=== PATIENT | female | born 1960 | race Caucasian/White ===

== ENCOUNTER 2020-03-03 17:42 | Inpatient (IN) | payer OTHER ==
[~2020-03-03] VITALS: Ht 160 cm; Wt 92.2 kg
[2020-03-03] MEDS ORDERED: NS IV 1000 ML 1,000 ML IV SCH (18:03)
[2020-03-03 18:15] LABS: BASOPHILS % (AUTO) 1 % (0-10); EOSINOPHILS # (AUTO) 0.1 10^3/uL (0.0-0.3); EOSINOPHILS % (AUTO) 1 % (0-10); HEMATOCRIT 44 % (35-52); HEMOGLOBIN 13.9 g/dL (11.5-16.0); LYMPHOCYTES # (AUTO) 2.8 10^3/uL (1.0-4.0); LYMPHOCYTES % (AUTO) 40 % (12-44); MEAN CORPUSCULAR HEMOGLOBIN 29 pg (25-34); MEAN CORPUSCULAR HGB CONC 31 g/dL (32-36); MEAN CORPUSCULAR VOLUME 92 fL (80-99); MEAN PLATELET VOLUME 9.8 fL (9.0-12.2); MONOCYTES # (AUTO) 0.5 10^3/uL (0.0-1.0); MONOCYTES % (AUTO) 8 % (0-12); NEUTROPHILS # (AUTO) 3.5 10^3/uL (1.8-7.8); NEUTROPHILS % (AUTO) 51 % (42-75); PLATELET COUNT 249 10^3/uL (130-400); WHITE BLOOD COUNT 6.9 10^3/uL (4.3-11.0)
[2020-03-03] MEDS ORDERED: ONDANSETRON 4 MG/2 ML (SDV) Z0FRAN IVP ONE (18:15)
--- NOTE | 2020-03-03 18:17 | ED Abdominal Pain ---
General Chief Complaint: Abdominal/GI Problems Stated Complaint: DEHYDRATION;ABNORMAL LAB RESULTS;ABD PAIN Source of Information: Patient History of Present Illness Date Seen by Provider: Mar 03, 2020 Time Seen by Provider: 17:56 Initial Comments PT ARRIVES VIA POV --SENT HERE FROM [facility] C/O GENERALIZED ABDOMINAL PAIN FOR AT LEAST 2 WEEKS C/O NAUSEA, NO VOMITING. HAD NORMAL BM THIS AFTERNOON NO FEVER/SWEATS/CHILLS NO URINARY SYMPTOMS AND VOIDING A NORMAL AMOUNT NOTHING WORSENS OR IMPROVES PAIN TOOK TYLENOL AT 1500 WITHOUT RELIEF HAS HAS PRIOR OPEN CHOLECYSTECTOMY AND HIATAL HERNIA REPAIR IN THE PAST NO CHEST PAIN NO SHORTNESS OF BREATH NO PALPITATIONS NO DIZZINESS OR SYNCOPE NOTICED SWELLING IN HER LEGS/ANKLES TODAY STATES SHE HAS GAINED 30# IN THE LAST 3 MONTHS SUPPOSED TO BY ON SYNTHROID, BUT HAS NOT TAKEN ANY FOR THE LAST 4 WEEKS, SIMPLY DID NOT REFILL/SAW TAILER MEDICATION FROM THE PHARMACY. NO RECENT ILLNESS NO KNOWN SICK CONTACTS OR EXPOSURE TO COVID-19 WENT TO [facility] ON SATURDAY FOR THIS PROBLEM. HAD LAB DONE. GIVEN RX FOR BENTYL. HAS NOT TAKEN ANYTHING TODAY WENT BACK TO [facility] THIS EVENING, AND GOT LAB RESULTS BACK--PT STATES "THEY SAID I WAS SUPER DEHYDRATED AND MY LIVER ENZYMES WERE REALLY BAD--WAY TOO HIGH, AND MY HEART RATE WAS 122" SO SENT HERE. NO COPIES OF LAB SENT WITH PT OR FAXED HERE. STATES SHE ATE AT 1300 TODAY--KEVIN PCP: [facility] Allergies and Home Medications Allergies Coded Allergies: morphine (Unverified Allergy, Mild, 11/01/05) No Known Drug Allergies (Unverified , 07/20/05) Patient Home Medication List Home Medication List Reviewed: Yes Review of Systems Review of Systems Constitutional: no symptoms reported Respiratory: No Symptoms Reported Cardiovascular: No Symptoms Reported Gastrointestinal: See HPI, Abdominal Pain; Denies Constipated, Denies Diarrhea; Nausea; Denies Vomiting Genitourinary: No Symptoms Reported Musculoskeletal: no symptoms reported Skin: no symptoms reported Psychiatric/Neurological: No Symptoms Reported Endocrine: No Symptoms Reported Hematologic/Lymphatic: No Symptoms Reported Past Jefgryc-Usxzti-Fppbxv Hx Past Med/Social Hx: Reviewed and Corrections made Patient Social History Alcohol Use: Occasionally Uses Recreational Drug Use: Yes (THC IN PAST) Drug of Choice: THC IN PAST Smoking Status: Current Everyday Smoker Recent Foreign Travel: No Contact w/Someone Who Travel: No Past Medical History Surgeries: Yes (OPEN CHOLECYSTECTOMY; HIATAL HERNIA REPAIR) Abdominal, Gallbladder Respiratory: No Cardiac: Yes (BRADYCARDIA) 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 oz. kg; BMI Method: General Appearance: WD/WN, no apparent distress, obese HEENT: normal ENT inspection Neck: normal inspection Respiratory: normal breath sounds, no respiratory distress, no accessory muscle use Cardiovascular: tachycardia, irregularly irregular Gastrointestinal: abnormal bowel sounds (RARE BOWEL SOUNDS), distended; No guarding, No rebound; tenderness (DIFFUSE TENDERNESS. ), other (ABDOMEN IS OBESE AND UNABLE TO DETERMINE IF ORGANOMEGALY IS PRESENT. UNABLE TO PALPATE ANY DISCRETE MASS OR HERNIA. ) Extremities: normal capillary refill, pedal edema (1+ BILATERALLY) Back: no CVA tenderness Neurologic/Psychiatric: research geneticist II-XII nml as tested, no motor/sensory deficits, alert, normal mood/affect, oriented x 3 Skin: normal color, warm/dry Progress/Results/Core Measures Results/Orders Lab Results Laboratory Tests Test 03/03/20 18:00 03/03/20 20:05 Range/Units White Blood Count 6.9 4.3-11.0 10^3/uL Red Blood Count 4.82 3.80-5.11 10^6/uL Hemoglobin 13.9 11.5-16.0 g/dL Hematocrit 44 35-52 % Mean Corpuscular Volume 92 80-99 fL Mean Corpuscular Hemoglobin 29 25-34 pg Mean Corpuscular Hemoglobin Concent 31 L 32-36 g/dL Red Cell Distribution Width 14.9 H 10.0-14.5 % Platelet Count 249 130-400 10^3/uL Mean Platelet Volume 9.8 9.0-12.2 fL Immature Granulocyte % (Auto) 0 % Neutrophils (%) (Auto) 51 42-75 % Lymphocytes (%) (Auto) 40 12-44 % Monocytes (%) (Auto) 8 0-12 % Eosinophils (%) (Auto) 1 0-10 % Basophils (%) (Auto) 1 0-10 % Neutrophils # (Auto) 3.5 1.8-7.8 10^3/uL Lymphocytes # (Auto) 2.8 1.0-4.0 10^3/uL Monocytes # (Auto) 0.5 0.0-1.0 10^3/uL Eosinophils # (Auto) 0.1 0.0-0.3 10^3/uL Basophils # (Auto) 0.0 0.0-0.1 10^3/uL Immature Granulocyte # (Auto) 0.0 0.0-0.1 10^3/uL Prothrombin Time 15.9 H 12.2-14.7 SEC INR Comment 1.2 0.8-1.4 Activated Partial Thromboplast Time 28 24-35 SEC D-Dimer 2.11 H 0.00-0.49 UG/ML Sodium Level 140 135-145 MMOL/L Potassium Level 4.3 3.6-5.0 MMOL/L Chloride Level 111 H 98-107 MMOL/L Carbon Dioxide Level 17 L 21-32 MMOL/L Anion Gap 12 5-14 MMOL/L Blood Urea Nitrogen 26 H 7-18 MG/DL Creatinine 0.95 0.60-1.30 MG/DL Estimat Glomerular Filtration Rate 60 BUN/Creatinine Ratio 27 Glucose Level 126 H 70-105 MG/DL Calcium Level 8.5 8.5-10.1 MG/DL Corrected Calcium 8.7 8.5-10.1 MG/DL Magnesium Level 2.2 1.6-2.4 MG/DL Total Bilirubin 1.1 H 0.1-1.0 MG/DL Aspartate Amino Transf (AST/SGOT) 36 H 5-34 U/L Alanine Aminotransferase (ALT/SGPT) 58 H 0-55 U/L Alkaline Phosphatase 84 40-136 U/L Total Creatine Kinase 63 29-168 U/L Creatine Kinase MB 1.5 <6.6 NG/ML Myoglobin 44.0 10.0-92.0 NG/ML Troponin I < 0.028 <0.028 NG/ML B-Type Natriuretic Peptide 1358.8 H <100.0 PG/ML Total Protein 6.4 6.4-8.2 GM/DL Albumin 3.8 3.2-4.5 GM/DL Amylase Level 12 L 25-125 U/L Lipase 14 8-78 U/L TSH [place] Testing 2.16 0.35-4.94 UIU/ML Urine Color YELLOW Urine Clarity CLEAR Urine pH 5.0 5-9 Urine Specific [place] 1.010 L 1.016-1.022 Urine Protein 1+ H NEGATIVE Urine Glucose (UA) NEGATIVE NEGATIVE Urine Ketones NEGATIVE NEGATIVE Urine Nitrite NEGATIVE NEGATIVE Urine Bilirubin NEGATIVE NEGATIVE Urine Urobilinogen 1.0 < = 1.0 MG/DL Urine Leukocyte Esterase NEGATIVE NEGATIVE Urine RBC (Auto) 2+ H NEGATIVE Urine RBC NONE /HPF Urine WBC 0-2 /HPF Urine Squamous Epithelial Cells 2-5 /HPF Urine Crystals NONE /LPF Urine Bacteria TRACE /HPF Urine Casts NONE /LPF Urine Mucus NEGATIVE /LPF Urine Culture Indicated NO My Orders Orders - HUGO NEGRON DO Ed Iv/Invasive Line Start (03/03/20 18:03) Ekg Tracing (03/03/20 18:03) O2 (03/03/20 18:03) Monitor-Rhythm Ecg Trace Only (03/03/20 18:03) Amylase (03/03/20 18:03) BNP (03/03/20 18:03) Cbc With Automated Diff (03/03/20 18:03) Comprehensive Metabolic Panel (03/03/20 18:03) Creatine Kinase (03/03/20 18:03) Creatine Kinase Mb (03/03/20 18:03) Fibrin Degradation Products (03/03/20 18:03) Lipase (03/03/20 18:03) Magnesium (03/03/20 18:03) Protime With Inr (03/03/20 18:03) Partial Thromboplastin Time (03/03/20 18:03) Thyroid Analyzer (03/03/20 18:03) Ua Culture If Indicated (03/03/20 18:03) Myoglobin Serum (03/03/20 18:03) Troponin I (03/03/20 18:03) Ed Iv/Invasive Line Start (03/03/20 18:03) Ns Iv 1000 Ml (Sodium Chloride 0.9%) (03/03/20 18:03) Ondansetron Injection (Zofran Injectio (03/03/20 18:15) Ekg Tracing (03/03/20 18:07) Ct [place] Chest/Noang Abd-Pelv W (03/03/20 18:47) Iohexol Injection (Omnipaque 350 Mg/Ml 1 (03/03/20 19:15) Received Contrast (Hold Metformin- Contr (03/03/20 19:15) Ns (Ivpb) (Sodium Chloride 0.9% Ivpb Bag (03/03/20 19:15) Acute Abd Series (03/03/20 18:47) Furosemide Injection (Lasix Injection) (03/03/20 21:00) Diltiazem Injection (Cardizem Injection) (03/03/20 21:00) Ekg Tracing (03/03/20 21:08) Medications Given in ED Current Medications Medications Dose Ordered Sig/Sigrid Route Start Time Stop Time Status Last Admin Dose Admin Diltiazem HCl 10 mg ONCE ONCE IVP 03/03/20 21:00 03/03/20 21:01 DC 03/03/20 20:59 10 MG Furosemide 20 mg ONCE ONCE IVP 03/03/20 21:00 03/03/20 21:01 DC 03/03/20 21:00 20 MG Iohexol 100 ml ONCE ONCE IV 03/03/20 19:15 03/03/20 19:26 DC 03/03/20 19:32 100 ML Ondansetron HCl 4 mg ONCE ONCE IVP 03/03/20 18:15 03/03/20 18:21 DC 03/03/20 18:15 4 MG Sodium Chloride 100 ml ONCE ONCE IV 03/03/20 19:15 03/03/20 19:26 DC 03/03/20 19:32 80 ML Vital Signs/I&O 03/03/20 03/03/20 17:57 21:18 Temp 36.0 36.0 Pulse 120 Resp 24 20 B/P (MAP) 171/118 (135) 160/114 (135) Pulse Ox 97 95 O2 Delivery Room Air Room Air 03/04/20 00:00 Intake Total 1000 ml Balance 1000 ml Progress Progress Note : Progress Note INITIAL HEART RATE WAS 180 AND VERY IRREGULAR--NARROW SUPRAVENTRICULAR COMPLEXES HEART RATE DOWN TO 120'S ONCE PT WAS SETTLED ONTO ER CART, AND MORE REGULAR--MONITOR SHOWS PVC'S AND PAC'S, WITH SINUS TACH. PT SLIGHTLY DYSPNEIC ON ARRIVAL WELL. THIS IMPROVED WITH REST Initial ECG Impression Date: Mar 03, 2020 Initial ECG Impression Time: 18:03 Initial ECG Rate: 123 Initial ECG Rhythm: S.Tach Initial ECG Impression: Nonspecific Changes Initial ECG Comparisson: No Previous ECG Available EKG : EKG Time: 18:04 Rate: 123 Rhythm: S.Tach (WITH PVC'S) ECG Impression: Nonspecific Changes Comment EKG #3 AT 2116--RATE 121. SINUS TACH, PVC, NON-SPECIFIC CHANGES Diagnostic Imaging Comments ABDOMEN XRAYS--PER RADIOLOGIST REPORT AT 1938 FINDINGS: Heart size is enlarged and mediastinum is prominent. This appears progressed from prior. Vasculature overall within normal limits. No definitive infiltrate. There are a few gas-filled loops of small bowel centrally. There is gas and stool through the colon. No significant differential air-fluid levels or findings to suggest high degree bowel obstruction. Small calcification right hemipelvis favors probable phlebolith. IMPRESSION: 1. Cardiac enlargement, progressed from prior study but without evidence for overt failure. 2. A few gas-filled loops of small bowel are present favoring probable ileus. No findings to suggest high degree bowel obstruction at this time. CT CHEST ANGIOGRAM/ ABDOMEN-PELVIS--PER RADIOLOGIST REPORT AT 2035 CTA CHEST: 1. No CT evidence for pulmonary embolism. 2. Cardiac enlargement with presence of small pleural effusion and component of interstitial edema does favor fluid overload or failure. CT ABDOMEN and PELVIS: 1. Right mid lateral abdominal wall hernia. This appears containing portions of the colon. While high degree obstruction not visualized, there does appear to be slight transition, thickening and some inflammatory changes in this area. This likely results in at least partial obstruction, perhaps intermittently. Reviewed: Reviewed by Me Departure Communication (Admissions) 2039--SPOKE WITH DR. GONZALEZ, HOSPITALIST CLEANER AND PREPARER FOR [facility]. ACCEPTS PT FOR ADM IT 2045--SPOKE WITH DR. DAO, TOOL SPECIALIST, ADVISES CLAUDIA, WILL GET ECHOCARDIOGRAM IN AM 2049--SPOKE WITH DR. MAYBERRY, SURGEON, ADVISES THAT PT MAY HAVE CLEAR LIQUIDS Impression Primary Impression: ABDOMINAL WALL HERNIA WITH PARTIAL BOWEL OBSTRUCTION Additional Impressions: CHF (congestive heart failure) HTN (hypertension) Supraventricular tachycardia Disposition: 09 ADMITTED INPATIENT Condition: Improved Admissions Decision to Admit Reason: Admit from ER (General) Decision to Admit/Date: Mar 03, 2020 Time/Decision to Admit Time: 20:40 Departure-Patient Inst. Referrals: [facility] (PCP/Family) Primary Care Physician HUGO NEGRON DO Mar 03, 2020 18:17
[2020-03-03 18:31] LABS: FIBRIN DEGRADATION PRODUCTS 2.11 UG/ML (0.00-0.49); INR 1.2 (0.8-1.4); PROTHROMBIN TIME PATIENT 15.9 SEC (12.2-14.7)
[2020-03-03 18:34] LABS: ALBUMIN 3.8 GM/DL (3.2-4.5); CHLORIDE 111 MMOL/L (98-107); POTASSIUM 4.3 MMOL/L (3.6-5.0); SODIUM 140 MMOL/L (135-145)
[2020-03-03 18:35] LABS: AMYLASE 12 U/L (25-125); CALCIUM 8.5 MG/DL (8.5-10.1)
[2020-03-03 18:36] LABS: GLUCOSE 126 MG/DL (70-105)
[2020-03-03 18:37] LABS: TOTAL PROTEIN 6.4 GM/DL (6.4-8.2)
[2020-03-03 18:38] LABS: BILIRUBIN,TOTAL 1.1 MG/DL (0.1-1.0); CARBON DIOXIDE 17 MMOL/L (21-32)
[2020-03-03 18:40] LABS: ALKALINE PHOSPHATASE 84 U/L (40-136); CREATININE SERUM 0.95 MG/DL (0.60-1.30); GFR ESTIMATED 60
[2020-03-03 18:41] LABS: BUN/CREATININE RATIO 27
[2020-03-03 18:43] LABS: ALANINE AMINOTRANSFERASE 58 U/L (0-55); MAGNESIUM 2.2 MG/DL (1.6-2.4)
[2020-03-03 18:44] LABS: CREATINE KINASE 63 U/L (29-168); LIPASE 14 U/L (8-78)
[2020-03-03 18:51] LABS: CREATINE KINASE MB 1.5 NG/ML (<6.6)
[2020-03-03 19:04] LABS: TSH (THYROID ANALYZER) 2.16 UIU/ML (0.35-4.94)
[2020-03-03] MEDS ORDERED: NS 100 ML (IVPB) BAG IV ONE (19:15)
[2020-03-03] MEDS ORDERED: HOLD METFORMIN - RECEIVED CONTRAST 20 ML VIAL IV SCH (19:15)
[2020-03-03] MEDS ORDERED: IOHEXOL 350 MG/ML 100 ML (OMNIPAQUE 350) VIAL IV ONE (19:15)
--- NOTE | 2020-03-03 19:33 | Diagnostic Imaging Report ---
INDICATION: Cramping and bleeding x2 weeks, increasing in severity TECHNIQUE: Single view chest with supine and upright radiographs of the abdomen. CORRELATION STUDY: Chest 06/09/2006 FINDINGS: Heart size is enlarged and mediastinum is prominent. This appears progressed from prior. Vasculature overall within normal limits. No definitive infiltrate. There are a few gas-filled loops of small bowel centrally. There is gas and stool through the colon. No significant differential air-fluid levels or findings to suggest high degree bowel obstruction. Small calcification right hemipelvis favors probable phlebolith. IMPRESSION: 1. Cardiac enlargement, progressed from prior study but without evidence for overt failure. 2. A few gas-filled loops of small bowel are present favoring probable ileus. No findings to suggest high degree bowel obstruction at this time. Dictated by: Dictated on workstation # [id number]
[2020-03-03 20:14] LABS: BILIRUBIN,URINE NEGATIVE (NEGATIVE); CLARITY,URINE CLEAR; COLOR,URINE YELLOW; GLUCOSE, URINE (UA) NEGATIVE (NEGATIVE); KETONES,URINE NEGATIVE (NEGATIVE); LEUKOCYTE ESTERASE ,URINE NEGATIVE (NEGATIVE); NITRITE,URINE NEGATIVE (NEGATIVE); PROTEIN,URINE 1+ (NEGATIVE)
--- NOTE | 2020-03-03 20:16 | Diagnostic Imaging Report ---
CTA chest, abdomen and pelvis Thin axial sections through the chest, abdomen and pelvis are obtained following intravenous contrast bolus. Multiplanar MIP images were reconstructed and reviewed. All CT scans use one or more of the following dose optimizing techniques: automated exposure control, MA and/or KvP adjustment based on patient size and exam type or iterative reconstruction. INDICATION: TACHYARRHYTHMIA, ABDOMINAL PAIN, N/V, DYSPNEA. Bloating and cramping x2 weeks increasing in severity. CORRELATION STUDY: None FINDINGS: CTA CHEST: Heart size is enlarged. There is disc no disproportionate right heart strain. No pericardial effusion. Thoracic aortic contour generally unremarkable. The pulmonary arteries demonstrate no suggested filling defect to reflect pulmonary embolism. Small right and slightly smaller left pleural effusion. No consolidating infiltrate. Mildly prominent peripheral interstitial markings does suggest at least mild interstitial edema. CT ABDOMEN and PELVIS: Slight heterogeneity about the liver without definitive focal lesion. Gallbladder absent. No bile duct dilatation. Spleen, atrophic pancreas and adrenal glands demonstrate no acute abnormality. Symmetric perinephric stranding. No hydronephrosis or obstruction. There is atherosclerotic change about the abdominal aorta which is nonaneurysmal. Major branches are patent at their origins. There is presence of small volume pelvic fluid. Stomach is relatively collapsed. Resultant gastric wall thickening. No significant small bowel distention or findings to suggest obstruction. A few gas-filled loops of bowel may reflect mild ileus. Along the right mid lateral abdominal wall is a focal hernia defect at slightly greater than 2 cm in size. There is herniation of portion of the proximal transverse colon. Colon appears to be slightly folded on itself and perhaps slightly thickened. Small amount of inflammation around this area is noted. However, high degree obstruction does not appear to be suggested. A few scattered shotty subcentimeter central retroperitoneal and mesenteric lymph nodes. Urinary bladder relatively decompressed. Uterus and adnexa unremarkable. IMPRESSION: CTA CHEST: 1. No CT evidence for pulmonary embolism. 2. Cardiac enlargement with presence of small pleural effusion and component of interstitial edema does favor fluid overload or failure. CT ABDOMEN and PELVIS: 1. Right mid lateral abdominal wall hernia. This appears containing portions of the colon. While high degree obstruction not visualized, there does appear to be slight transition, thickening and some inflammatory changes in this area. This likely results in at least partial obstruction, perhaps intermittently. Dictated by: Dictated on workstation # [id number]
[2020-03-03 20:26] LABS: BACTERIA,URINE TRACE /HPF; WBC,URINE 0-2 /HPF
[2020-03-03] MEDS ORDERED: FUROSEMIDE 40 MG/4 ML INJ (LASIX) IVP ONE (21:00)
--- NOTE | 2020-03-03 21:36 | CONSULTATION REPORT ---
DATE OF SERVICE: 03/03/2020 ATTENDING OTHER SPATIAL SCIENTIST: [facility]. HISTORY OF PRESENT ILLNESS: The patient is a 59-year-old female who presents with a 2-week history of generalized abdominal pain. She states that she has also had some intermittent episodes of nausea; however, no vomiting. She does state that she is having normal bowel movements. She does not report any red blood per rectum nor any dark tarry stools. She does have a history of gastroesophageal reflux disease and is status post hiatal hernia repair in the past. A CT scan was performed, which did not show any signs of obstruction. There was approximately 2 cm right lateral abdominal hernia; however, no signs of incarceration or strangulation. She does not have any peritoneal signs. It also appears that she does have an elevated BNP and may have some level of congestive heart failure. PAST MEDICAL HISTORY: Hypothyroid, gastroesophageal reflux disease, diabetes. PAST SURGICAL HISTORY: Open cholecystectomy, laparoscopic hiatal hernia repair. ALLERGIES: MORPHINE. MEDICATIONS: Synthroid, metformin. SOCIAL HISTORY: Negative smoke, negative alcohol. FAMILY HISTORY: Noncontributory. VITAL SIGNS: Temperature 36.0, blood pressure 171/118, pulse 70, respirations 24, pulse ox 97% on room air. REVIEW OF SYSTEMS: This is an obese female, currently in no acute distress. She is not experiencing any shortness of breath or difficulty breathing. No chest pain, palpitations, diaphoresis. Intermittent nausea, no vomiting. She did have a bowel movement today. She does not report any diarrhea as well as no red blood per rectum nor any dark tarry stools. No fever, chills, no recent inadvertent weight loss. All other review of systems negative. PHYSICAL EXAMINATION: CHEST: Few scattered rales bilaterally. HEART: Regular, no murmurs. EXTREMITIES: No lower extremity edema, negative Homans sign. HEENT: No scleral icterus. NECK: No cervical lymphadenopathy. ABDOMEN: Soft. There is mild generalized abdominal discomfort upon deep palpation. There is a defect in the right upper abdomen; however, reducible. SKIN: Warm, dry. LABORATORY DATA: WBC 5.9, hemoglobin 13.9, hematocrit 44, platelets 249. ASSESSMENT AND PLAN: A 59-year-old female with generalized abdominal pain as well as possible congestive heart failure. At this time, she is not showing any signs of obstruction with a chronic incisional hernia, which is reducible. RECOMMENDATION: At this time is to proceed with conservative management and allow for further medical as well as cardiac workup and evaluation and proceed with a ventral hernia repair in a more optimal study, which would be in an elective setting. Job ID: [id number] DocumentID: [id number] Dictated Date: 03/03/2020 21:20:09 Java Core Developer Date: 03/03/2020 21:35:30 Dictated By: JASPAL MAYBERRY MD MTDD
[2020-03-03] MEDS ORDERED: 1/2 NS IV SOLUTION 1,000 ML IV ONE (22:48)
[2020-03-03] MEDS: 1/2 NS IV SOLUTION 1,000 ML IV SCH (23:00)
[2020-03-03] MEDS ORDERED: fentaNYL INJECTION 100 MCG/2 ML AMP IVP PRN (23:00)
[2020-03-03 23:15] VITALS: BP 160/114
[2020-03-04] VITALS (7 sets, daily range): BP systolic 111–163; BP diastolic 86–118
--- NOTE | 2020-03-04 05:14 | Diagnostic Imaging Report ---
Indication: Tachycardia and hypertension Portable chest 3:13 AM Heart size and pulmonary vascularity are within normal limits. Lungs are clear. There are no effusions or pneumothoraces. IMPRESSION: Negative chest Dictated by: Dictated on workstation # [id number]
[2020-03-04 05:30] LABS: BASOPHILS % (AUTO) 1 % (0-10); EOSINOPHILS # (AUTO) 0.1 10^3/uL (0.0-0.3); EOSINOPHILS % (AUTO) 1 % (0-10); HEMATOCRIT 40 % (35-52); HEMOGLOBIN 12.7 g/dL (11.5-16.0); LYMPHOCYTES % (AUTO) 37 % (12-44); MEAN CORPUSCULAR HEMOGLOBIN 29 pg (25-34); MEAN CORPUSCULAR HGB CONC 32 g/dL (32-36); MEAN CORPUSCULAR VOLUME 91 fL (80-99); MEAN PLATELET VOLUME 9.9 fL (9.0-12.2); MONOCYTES # (AUTO) 0.5 10^3/uL (0.0-1.0); MONOCYTES % (AUTO) 9 % (0-12); NEUTROPHILS # (AUTO) 2.9 10^3/uL (1.8-7.8); NEUTROPHILS % (AUTO) 52 % (42-75); PLATELET COUNT 217 10^3/uL (130-400); WHITE BLOOD COUNT 5.5 10^3/uL (4.3-11.0)
[2020-03-04 05:55] LABS: ALBUMIN 3.5 GM/DL (3.2-4.5); CHLORIDE 109 MMOL/L (98-107); SODIUM 141 MMOL/L (135-145)
[2020-03-04 05:56] LABS: CALCIUM 8.1 MG/DL (8.5-10.1)
[2020-03-04 05:58] LABS: GLUCOSE 95 MG/DL (70-105); TOTAL PROTEIN 5.8 GM/DL (6.4-8.2)
[2020-03-04 05:59] LABS: BILIRUBIN,TOTAL 1.1 MG/DL (0.1-1.0); CARBON DIOXIDE 20 MMOL/L (21-32)
[2020-03-04 06:01] LABS: ALKALINE PHOSPHATASE 71 U/L (40-136); CREATININE SERUM 0.83 MG/DL (0.60-1.30); GFR ESTIMATED > 60
[2020-03-04 06:02] LABS: BUN/CREATININE RATIO 25
[2020-03-04 06:04] LABS: ALANINE AMINOTRANSFERASE 51 U/L (0-55)
[2020-03-04] MEDS ORDERED: FLU QUADRIvalent (3YOA+) 60 mcg/0.5 ml 2020-21 (AFLURIA) IM ONE (07:15)
[2020-03-04] MEDS ORDERED: PANTOPRAZOLE 40 MG (PROTONIX) VIAL IV SCH (09:00)
[2020-03-04] MEDS ORDERED: ACET-2267 PO (10:12)
[2020-03-04] MEDS ORDERED: ESOM20CA58 PO (10:12)
--- NOTE | 2020-03-04 10:25 | NUR ---
SPOKE WITH THE PT TO COMPLETE THE MED REC PT DENIES TAKING ANY PRESCRIPTION MEDICATION RECENTLY- HOWEVER SHE DID LET ME KNOW THAT IN THE PAST SHE WAS PRESCRIBED LEVOTHYROXINE (SHE THINKS 125MCG) THAT WAS LAST FILLED SOMEWHERE IN [place]. PT SAYS SHE HAS NOT TAKEN THIS IN OVER 4 WEEKS AND PRIOR TO THAT SHE DID NOT TAKE IT CONSISTENTLY. OTC MEDS: TYLENOL PRN NEXIUM
--- NOTE | 2020-03-04 10:57 | Short Stay Summary-Hospitalist ---
BERNADETTE WERNER MED STUDENT 03/04/20 1057: History of Present Illness HPI/Chief Complaint CC: abdominal pain, nausea, bloating HPI: Patient is a 59 yo female who was admitted to [facility] from the ED on 03/03 for worsening abdominal pain, nausea and bloating. She has noticed a 30 lb weight gain in the last three months. She was seen at [facility] on 03/01 for similar concerns where she had labs drawn and was given Bentyl for the symptoms. She returned to [facility] on 03/03 for worsening symptoms and was directed to the ED after labs showed dehydration and elevated liver enzymes. She has had loose stools, but states this is her normal. She was put on clear liquid diet and has noticed looser stools. She has a history of laparoscopic cholycystectomy and laparoscopic hiatal hernia repair. CTA of chest showed cardiac enlargement with small pleural effusion. CT abdomen/pelvis showed a right mid lateral abdominal wall hernia with what appears to contain portions of colon. No high degree obstruction was visualized. Acute abdominal series showed few gas-filled loops of small bowel, probable ileus. BNP was elevated at 1358.8 and she is tachycardic on exam. ECHO is pending. Her bloating and pain has improved overnight. Last bowel movement was this morning and was liquid consistency. Source: patient, old records Exam Limitations: no limitations Date Seen 03/04/20 Attending Physician Sia Gonzalez DO [facility] Referring Physician Date of Admission Mar 03, 2020 at 21:25 Home Medications & Allergies Home Medications Reviewed patient Home Medication Reconciliation performed by pharmacy medication reconciliations decontamination technician and/or nursing. Patients Allergies have been reviewed. Allergies Allergies Coded Allergies morphine (Unverified Allergy, Mild, 11/01/05) No Known Drug Allergies (Unverified07/20/05) Past Nmouakz-Pjwqsp-Byizhp Hx Past Med/Social Hx: Reviewed and Corrections made Patient Social History Alcohol Use: Occasionally Uses Recreational Drug Use: Yes (THC IN PAST) Drug of Choice: THC IN PAST Smoking Status: Current Everyday Smoker Recent Foreign Travel: No Contact w/other who traveled: No Recent Hopitalizations: No Recent Infectious Disease Expo: No Seasonal Allergies Seasonal Allergies: Yes Past Medical History Surgeries: Abdominal, Gallbladder Menopausal Gastrointestinal: Gastroesophageal Reflux, Hiatal Hernia, Gall Bladder Disease Musculoskeletal: Arthritis Endocrine: Hypothyroidsim History of Blood Disorders: No Review of Systems Constitutional: see HPI, weight gain EENTM: no symptoms reported Respiratory: no symptoms reported; No short of breath Cardiovascular: no symptoms reported; No chest pain, No palpitations Gastrointestinal: see HPI, abdominal pain (generalized); No constipation; diarrhea; No hematemesis, No heartburn; nausea; No vomiting Genitourinary: no symptoms reported; No hematuria, No pain Musculoskeletal: no symptoms reported Skin: no symptoms reported Psychiatric/Neurological: No Symptoms Reported Physical Exam Physical Exam Vital Signs Vital Signs - First Documented 03/03/20 03/03/20 17:57 21:18 Temp 36.0 Pulse 120 Resp 24 B/P (MAP) 171/118 (135) Pulse Ox 97 O2 Delivery Room Air Capillary Refill : Less Than 3 Seconds Height, Weight, BMI Height: '" Weight: lbs. oz. kg; 37.38 BMI Method: General Appearance: No Apparent Distress, WD/WN, Obese HEENT: Normal ENT Inspection Neck: Non Tender, Supple Respiratory: Chest Non Tender, Lungs Clear, Normal Breath Sounds, No Accessory Muscle Use, No Respiratory Distress Cardiovascular: Regular Rate, Rhythm, No Murmur, Tachycardia Gastrointestinal: No Pulsatile Mass, Soft, Distended, Tenderness (generalized) Extremity: Non Tender, Pedal Edema (trace) Neurologic/Psychiatric: Alert, Oriented x3, No Motor/Sensory Deficits, Normal Mood/Affect Skin: Normal Color, Warm/Dry Results Results/Procedures Labs Laboratory Tests 03/03/20 18:00 03/04/20 04:54 Patient resulted labs reviewed. Imaging: Reviewed Imaging Report Short Stay Diagnosis Discharge Diagnosis-Short Stay Admission Diagnosis Abdominal wall hernia with partial bowel obstruction Final Discharge Diagnosis Abdominal wall hernia with partial bowel obstruction Conclusion Plan Advance diet and monitor patient to see if she tolerates it Patient is ambulating well, no safety concerns Close follow up with [facility] Follow up with general surgery for outpatient elective repair Review ECHO once resulted Clinical Quality Measures DVT/VTE Risk/Contraindication: Risk Factor Score Per Nursin RFS Level Per Nursing on Admit: 2=Moderate SIA GONZALEZ DO 03/04/20 2016: History of Present Illness HPI/Chief Complaint CC: Abdominal pain with distention HPI: This is a 59yoWF clinic patient of [facility] who has a h/o bradycardia who presented with abdominal pain and CT revealed abdominal hernia and partial SBO but also had tachycardia with elevated BNP prompting consultation with Dr Robbins. Patient was seen by Dr Willis and then she had a large BM clearing the partial SBO but ECHO revealed EF 10% so she will undergo CHF source evaluation and will need lifevest. Time Seen by a Provider: 09:00 Past Dsuutgi-Bhaseq-Tevrek Hx Past Med/Social Hx: Reviewed Nursing Past Med/Soc Hx, Reviewed and Corrections made Past Medical History Cardiac: Palpitations Review of Systems Constitutional: see HPI Gastrointestinal: abdominal pain (generalized), loss of appetite, nausea, vomiting Physical Exam Physical Exam General Appearance: No Apparent Distress, WD/WN Eyes: Bilateral Eye Normal Inspection, Bilateral Eye PERRL HEENT: PERRL/EOMI, TMs Normal, Normal ENT Inspection, Pharynx Normal Neck: Full Range of Motion, Normal Inspection, Non Tender, Supple, Carotid Bruit Respiratory: Chest Non Tender, Lungs Clear, Normal Breath Sounds, No Accessory Muscle Use, No Respiratory Distress Cardiovascular: Regular Rate, Rhythm, No Edema, No Gallop, No JVD, No Murmur, Normal Peripheral Pulses Gastrointestinal: Normal Bowel Sounds, No Organomegaly, No Pulsatile Mass, Non Tender, Soft Back: Normal Inspection, No CVA Tenderness, No Vertebral Tenderness Extremity: Normal Capillary Refill, Normal Inspection, Normal Range of Motion, Non Tender, No Calf Tenderness, No Pedal Edema Neurologic/Psychiatric: Alert, Oriented x3, No Motor/Sensory Deficits, Normal Mood/Affect Skin: Normal Color, Warm/Dry Lymphatic: No Adenopathy Short Stay Diagnosis Discharge Diagnosis-Short Stay Admission Diagnosis Abdominal pain with N/V and partial SBO on CT scan New cardiomyopathy on ECHO EF 10% Appreciate Darwin Newton Final Discharge Diagnosis Abdominal pain with N/V and partial SBO on CT scan New cardiomyopathy on ECHO EF 10% Appreciate Darwin Newton Conclusion Plan Cath Abdominal pain monitoring Diagnosis/Problems Diagnosis/Problems (1) SBO (small bowel obstruction) (2) Cardiomyopathy (3) Supraventricular tachycardia Status: Acute (4) CHF (congestive heart failure) Status: Acute (5) HTN (hypertension) Status: Acute Supervisory-Addendum Brief Verification & Attestation Participated in pt care: history, MDM, physical Personally performed: exam, history, MDM, supervision of care Care discussed with: Medical Student Procedures: n/a Results interpretation: Verified all documentation Verification and Attestation of Medical Student E/M Service A medical student performed and documented this service in my presence. I reviewed and verified all information documented by the medical student and made modifications to such information, when appropriate. I personally performed the physical exam and medical decision making. Sia Gonzalez, Mar 04, 2020,20:15 BERNADETTE WERNER MED STUDENT Mar 04, 2020 10:57 SIA GONZALEZ DO Mar 04, 2020 20:16
--- NOTE | 2020-03-04 13:15 | Consultation-Cardiology ---
HPI-Cardiology Cardiology Consultation: Date of Consultation 03/04/20 Date of Admission Attending Physician Sia Fox DO Admitting Physician [facility] Consulting Physician Gabriel ROBBINS MD HPI: Time Seen by a Provider: 10:00 Chief Complaint: abdominal pain this is a 59-year-old lady who was admitted through the emergency department for abdominal pain, nausea and bloating. she has history of hyperthyroidism. She denies active smoking. Pertinent family history is negative. She has noted significant weight gain in the last 3 months. She went to [facility]] few days ago and lab works were done which showed elevated LFTs. In the ER CT scan showed right mid lateral abdominal wall hernia. CT angiography of the chest ruled out pulmonary embolism however pleural effusion and interstitial edema was noted. Patient has an elevated BNP of 1359. Sinus tachycardia was also noted. Patient denies shortness of breath or chest pain. Review of Systems-Cardiology Review of Systems Constitutional: As described under HPI; No As described under HPI, No no symptoms reported, No chills, No fever, No lightheadedness Eyes: No As described under HPI, No no symptoms reported, No blindness, No blurred vision, No contact lenses, No drainage, No decreased acuity, No foreign body sensation, No pain, No vision change Ears/Nose/Throat: No As described under HPI, No no symptoms reported, No chronic hearing loss, No ear discharge, No ear pain, No nasal drainage, No ulcerations Respiratory: No no symptoms reported; As described under HPI; No As described under HPI, No cough, No orthopnea, No shortness of breath, No SOB with excertion Cardiovascular: No no symptoms reported; As described under HPI; No As described under HPI, No chest pain, No edema, No irregular heart rate, No lightheadedness, No palpitations Gastrointestinal: No no symptoms reported, No As described under HPI, No abdomen distended; abdominal pain; No blood streaked bowels, No constipation, No diarrhea, No nausea, No vomiting, No stool coloration changes Genitourinary: No As described under HPI, No burning, No dysuria, No discharge, No frequency, No flank pain, No hematuria, No urgency : Yes : No Skin: No rash, No skin related problems, No ulcerations Psychiatric/Neurological: No anxiety, No depression, No seizure, No focal weakness, No syncope Hematologic: No bleeding abnormalities HTV-Nbfhev-Qzjqoi Hx Patient Social History Alcohol Use: Occasionally Uses Recreational Drug Use: Yes (THC IN PAST) Drug of Choice: THC IN PAST Smoking Status: Current Everyday Smoker Recent Foreign Travel: No Recent Infectious Disease Expo: No Hospitalization with Isolation: Denies Past Medical History PMH As described under Assessment. Allergies and Home Medications Allergies Coded Allergies: morphine (Unverified Allergy, Mild, 11/01/05) No Known Drug Allergies (Unverified , 07/20/05) Home Medications Acetaminophen 500 Mg Tablet, 1,000 MG PO Q8H PRN for PAIN-MILD (1-4), (Reported) Esomeprazole Magnesium 20 Mg Capsule.dr, 20 MG PO DAILY, (Reported) Patient Home Medication List Home Medication List Reviewed: Yes Physical Exam-Cardiology Physical Exam Vital Signs/I&O 03/04/20 03/04/20 03/04/20 03/04/20 04:00 07:00 07:22 09:00 Temp 36.3 Pulse 116 119 120 Resp 13 16 B/P (MAP) 151/116 (128) 163/118 (133) Pulse Ox 95 97 O2 Delivery Room Air Room Air Room Air 03/04/20 12:00 Temp 36.9 Pulse 123 Resp 18 B/P (MAP) 138/106 (117) Pulse Ox 96 O2 Delivery Room Air 03/04/20 00:00 Intake Total 1000 ml Balance 1000 ml Capillary Refill : Less Than 3 Seconds Constitutional: appears stated age, AAO x 3; No apparent distress; well- developed, well-nourished HEENT: PERRL; No discharge; hearing is well preserved, oral hygience is good; No ulceration, No xanthelasmas are seen Neck: No carotid bruit; carotid pulses are 2 + bilaterally Respiratory: chest is bilaterally symmetric, lungs clear to percussion Cardiovascular: regular rate-rhythm, tachycardia, S1 and S2 Gastrointestinal: soft, audible bowel sounds; No spleenomegaly Rectal: deferred Extremities: normal range of motion, non-tender, normal inspection; No clubbing, No cyanosis; no lower extremity edema bilateral; No significant edema Neurologic/Psychiatric: no motor/sensory deficits, alert, normal mood/affect, oriented x 3, power is 5/5 both on sides Skin: normal color, warm/dry; No rash, No ulcerations Data Review Labs Laboratory Tests 03/03/20 18:00: White Blood Count 6.9, Red Blood Count 4.82, Hemoglobin 13.9, Hematocrit 44, Mean Corpuscular Volume 92, Mean Corpuscular Hemoglobin 29, Mean Corpuscular Hemoglobin Concent 31L, Red Cell Distribution Width 14.9H, Platelet Count 249, Mean Platelet Volume 9.8, Immature Granulocyte % (Auto) 0, Neutrophils (%) (Auto) 51, Lymphocytes (%) (Auto) 40, Monocytes (%) (Auto) 8, Eosinophils (%) (Auto) 1, Basophils (%) (Auto) 1, Neutrophils # (Auto) 3.5, Lymphocytes # (Auto) 2.8, Monocytes # (Auto) 0.5, Eosinophils # (Auto) 0.1, Basophils # (Auto) 0.0, Immature Granulocyte # (Auto) 0.0, Prothrombin Time 15.9H, INR Comment 1.2, Activated Partial Thromboplast Time 28, D-Dimer 2.11H, Sodium Level 140, Potassium Level 4.3, Chloride Level 111H, Carbon Dioxide Level 17L, Anion Gap 12, Blood Urea Nitrogen 26H, Creatinine 0.95, Estimat Glomerular Filtration Rate 60, BUN/Creatinine Ratio 27, Glucose Level 126H, Calcium Level 8.5, Corrected Calcium 8.7, Magnesium Level 2.2, Total Bilirubin 1.1H, Aspartate Amino Transf (AST/SGOT) 36H, Alanine Aminotransferase (ALT/SGPT) 58H, Alkaline Phosphatase 84, Total Creatine Kinase 63, Creatine Kinase MB 1.5, Myoglobin 44.0, Troponin I < 0.028, B-Type Natriuretic Peptide 1358.8H, Total Protein 6.4, Albumin 3.8, Amylase Level 12L, Lipase 14, TSH [place] Testing 2.16 03/03/20 20:05: Urine Color YELLOW, Urine Clarity CLEAR, Urine pH 5.0, Urine Specific [place] 1.010L, Urine Protein 1+H, Urine Glucose (UA) NEGATIVE, Urine Ketones NEGATIVE, Urine Nitrite NEGATIVE, Urine Bilirubin NEGATIVE, Urine Urobilinogen 1.0, Urine Leukocyte Esterase NEGATIVE, Urine RBC (Auto) 2+H, Urine RBC NONE, Urine WBC 0-2, Urine Squamous Epithelial Cells 2-5, Urine Crystals NONE, Urine Bacteria TRACE, Urine Casts NONE, Urine Mucus NEGATIVE, Urine Culture Indicated NO 03/04/20 04:54: White Blood Count 5.5, Red Blood Count 4.40, Hemoglobin 12.7, Hematocrit 40, Mean Corpuscular Volume 91, Mean Corpuscular Hemoglobin 29, Mean Corpuscular Hemoglobin Concent 32, Red Cell Distribution Width 14.7H, Platelet Count 217, Mean Platelet Volume 9.9, Immature Granulocyte % (Auto) 0, Neutrophils (%) (Auto) 52, Lymphocytes (%) (Auto) 37, Monocytes (%) (Auto) 9, Eosinophils (%) (Auto) 1, Basophils (%) (Auto) 1, Neutrophils # (Auto) 2.9, Lymphocytes # (Auto) 2.0, Monocytes # (Auto) 0.5, Eosinophils # (Auto) 0.1, Basophils # (Auto) 0.0, Immature Granulocyte # (Auto) 0.0, Sodium Level 141, Potassium Level 4.0, Chloride Level 109H, Carbon Dioxide Level 20L, Anion Gap 12, Blood Urea Nitrogen 21H, Creatinine 0.83, Estimat Glomerular Filtration Rate > 60, BUN/Creatinine Ratio 25, Glucose Level 95, Calcium Level 8.1L, Corrected Calcium 8.5, Total Bilirubin 1.1H, Aspartate Amino Transf (AST/SGOT) 32, Alanine Aminotransferase (ALT/SGPT) 51, Alkaline Phosphatase 71, Total Protein 5.8L, Albumin 3.5 ECG Impression ECG Initial ECG Rhythm: S.Tach Comment Q waves in the anterior precordial leads suggest possible old anterior infarct. A/P-Cardiology Assessment/Admission Diagnosis abdominal hernia, Large bowel partial obstruction, Elevated LFTs, Acute systolic congestive heart failure, New diagnosis of severe cardiomyopathy, Graves' disease, Sinus tachycardia Plan abdominal hernia, Large bowel partial obstruction, defer to surgery team. Elevated LFTs,likely secondary to congestive heart failure. Acute systolic congestive heart failure,Lasix. New diagnosis of severe cardiomyopathy,unclear etiology. Will require coronary angiography to rule out CAD. Tachycardia-induced cardiomyopathy is in the differential. start beta chinedu and ESHA inhibitor. Graves' disease,check thyroid profile. Sinus tachycardia, CT angiography ruled out pulmonary embolism. Could be secondary to hyperthyroidism. Thank you for your consultation. Please call me if you have any questions. Edwardo Robbins MD, FACP, FACC, FSCAI, FHRS, CCDS Interventional Cardiology Cardiac Electrophysiology Vascular Medicine and Endovascular Interventions Clinical Quality Measures DVT/VTE Risk/Contraindication: Risk Factor Score Per Nursin RFS Level Per Nursing on Admit: 2=Moderate Gabriel ROBBINS MD Mar 04, 2020 13:15
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
[2020-03-04] MEDS ORDERED: lisINopril 40 MG (PRINIVIL) TABLET PO SCH (13:30)
[2020-03-04] MEDS: 1/2 NS IV SOLUTION 1,000 ML IV SCH (13:48)
[2020-03-04] MEDS: lisINopril 10 MG (PRINIVIL) TABLET PO SCH (13:51)
[2020-03-04] MEDS: PROPRANOLOL 20 MG (INDERAL) TABLET PO SCH ×2 (14:16→21:06)
[2020-03-05] VITALS (16 sets, daily range): BP systolic 101–131; BP diastolic 70–103
[2020-03-05] MEDS: ONDANSETRON 4 MG/2 ML (SDV) Z0FRAN IVP PRN (00:16)
[2020-03-05 03:37] LABS: BASOPHILS % (AUTO) 0 % (0-10); EOSINOPHILS # (AUTO) 0.1 10^3/uL (0.0-0.3); EOSINOPHILS % (AUTO) 1 % (0-10); HEMATOCRIT 41 % (35-52); HEMOGLOBIN 12.6 g/dL (11.5-16.0); LYMPHOCYTES % (AUTO) 29 % (12-44); MEAN CORPUSCULAR HEMOGLOBIN 29 pg (25-34); MEAN CORPUSCULAR HGB CONC 31 g/dL (32-36); MEAN CORPUSCULAR VOLUME 92 fL (80-99); MEAN PLATELET VOLUME 9.8 fL (9.0-12.2); MONOCYTES # (AUTO) 0.5 10^3/uL (0.0-1.0); MONOCYTES % (AUTO) 8 % (0-12); NEUTROPHILS # (AUTO) 4.3 10^3/uL (1.8-7.8); NEUTROPHILS % (AUTO) 61 % (42-75); PLATELET COUNT 206 10^3/uL (130-400)
[2020-03-05 03:49] LABS: ALBUMIN 3.3 GM/DL (3.2-4.5); CHLORIDE 107 MMOL/L (98-107); SODIUM 138 MMOL/L (135-145)
[2020-03-05 03:50] LABS: CALCIUM 8.1 MG/DL (8.5-10.1)
[2020-03-05 03:51] LABS: GLUCOSE 99 MG/DL (70-105); TOTAL PROTEIN 5.5 GM/DL (6.4-8.2)
[2020-03-05 03:52] LABS: CARBON DIOXIDE 19 MMOL/L (21-32)
[2020-03-05 03:53] LABS: BILIRUBIN,TOTAL 0.9 MG/DL (0.1-1.0)
[2020-03-05 03:55] LABS: ALKALINE PHOSPHATASE 69 U/L (40-136); CREATININE SERUM 0.87 MG/DL (0.60-1.30); GFR ESTIMATED > 60
[2020-03-05 03:56] LABS: BUN/CREATININE RATIO 25
[2020-03-05 03:58] LABS: ALANINE AMINOTRANSFERASE 53 U/L (0-55)
[2020-03-05] MEDS: PROPRANOLOL 20 MG (INDERAL) TABLET PO SCH (06:25)
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
[2020-03-05] MEDS: lisINopril 10 MG (PRINIVIL) TABLET PO SCH (09:36)
[2020-03-05] MEDS: PANTOPRAZOLE 20 MG TABLET (PROTONIX) PO SCH (09:36)
[2020-03-05] MEDS ORDERED: LIDOCAINE 1% INJ 20 ML 20 ML VIAL ONE (13:31)
[2020-03-05] MEDS ORDERED: HEParin 1000 UNIT/ML (10ML VIAL) FOR BOLUS ONE (13:32)
[2020-03-05] MEDS ORDERED: NS IV 1000 ML 1,000 ML ONE (13:32)
[2020-03-05] MEDS ORDERED: fentaNYL INJECTION 100 MCG/2 ML AMP ONE (13:32)
[2020-03-05] MEDS ORDERED: MIDAZOLAM 5 MG/5 ML (VERSED) VIAL ONE (13:32)
[2020-03-05] MEDS ORDERED: VERAPAMIL 5 MG/2 ML (CALAN) VIAL IV ONE (13:32)
[2020-03-05] MEDS ORDERED: NITRO DRIP 25000 MCG/D5W 0 ML IV ONE (13:32)
[2020-03-05] MEDS ORDERED: HEParin (CATH LAB) 2,000 ML IV ONE (13:32)
--- NOTE | 2020-03-05 13:59 | NUR ---
PT LEAVING UNIT VIA BED ACCOMPANIED BY CIGARETTE MAKING MACHINE CATCHER STAFF, WILL WAIT FOR PT TO RETURN.
[2020-03-05] MEDS ORDERED: ADENOSINE 6 MG/2 ML (ADENOCARD) VIAL IV ONE ×3 (14:14→14:35)
[2020-03-05] MEDS ORDERED: ENOXAPARIN 100 MG/1 ML (LOVENOX) SYR ONE (14:35)
--- NOTE | 2020-03-05 15:00 | NUR ---
PT BACK TO ROOM VIA BED ACCOMPANIED BY SLIPCOVER CUTTER STAFF. BEDSIDE REPORT RECEIVED, PT CONNECTED TO BEDSIDE MONITOR. RIGHT GROIN SITE CHECKED, AREA SOFT, NO BLEEDING NOTED, DRSG DRY AND INTACT. WILL CONTINUE TO MONITOR.
--- NOTE | 2020-03-05 15:11 | Cardiology Progress Note ---
Cardiology SOAP Progress Note Subjective: No significant cardiac complaints. Objective: I&O/Vital Signs 03/05/20 03/05/20 03/05/20 03/05/20 03:59 07:00 08:00 08:00 Temp 35.8 35.7 Pulse 112 114 113 Resp 16 20 B/P (MAP) 104/81 (89) 114/85 (95) Pulse Ox 97 96 O2 Delivery Room Air Room Air Room Air 03/05/20 03/05/20 03/05/20 12:00 12:48 15:00 Temp 36.2 Pulse 112 115 111 Resp 21 20 B/P (MAP) 124/86 (99) 104/86 (92) Pulse Ox 96 96 O2 Delivery Room Air Room Air 03/05/20 00:00 Intake Total 1125 ml Output Total 1000 ml Balance 125 ml Constitutional: appears stated age, AAO x 3; No apparent distress; well- developed, well-nourished Respiratory: chest is bilaterally symmetric, lungs clear to percussion Cardiovascular: regular rate-rhythm, tachycardia, S1 and S2 Gastrointestional: soft, audible bowel sounds; No spleenomegaly Extremities: normal range of motion, non-tender, normal inspection; No c lubbing, No cyanosis; no lower extremity edema bilateral; No significant edema Neurologic/Psychiatric: no motor/sensory deficits, alert, normal mood/affect, oriented x 3, power is 5/5 both on sides Skin: normal color, warm/dry; No rash, No ulcerations Results/Procedures: Labs Laboratory Tests 03/05/20 03:00: White Blood Count 7.0, Red Blood Count 4.41, Hemoglobin 12.6, Hematocrit 41, Mean Corpuscular Volume 92, Mean Corpuscular Hemoglobin 29, Mean Corpuscular Hemoglobin Concent 31L, Red Cell Distribution Width 14.6H, Platelet Count 206, Mean Platelet Volume 9.8, Immature Granulocyte % (Auto) 0, Neutrophils (%) (Auto) 61, Lymphocytes (%) (Auto) 29, Monocytes (%) (Auto) 8, Eosinophils (%) (Auto) 1, Basophils (%) (Auto) 0, Neutrophils # (Auto) 4.3, Lymphocytes # (Auto) 2.0, Monocytes # (Auto) 0.5, Eosinophils # (Auto) 0.1, Basophils # (Auto) 0.0, Immature Granulocyte # (Auto) 0.0, Sodium Level 138, Potassium Level 4.0, Chloride Level 107, Carbon Dioxide Level 19L, Anion Gap 12, Blood Urea Nitrogen 22H, Creatinine 0.87, Estimat Glomerular Filtration Rate > 60, BUN/Creatinine Ratio 25, Glucose Level 99, Calcium Level 8.1L, Corrected Calcium 8.7, Total Bilirubin 0.9, Aspartate Amino Transf (AST/SGOT) 42H, Alanine Aminotransferase (ALT/SGPT) 53, Alkaline Phosphatase 69, Total Protein 5.5L, Albumin 3.3 A/P: Assessment/Dx: abdominal hernia, Large bowel partial obstruction, Elevated LFTs, Acute systolic congestive heart failure, New diagnosis of severe cardiomyopathy, Graves' disease, Typical atrial flutter Plan: abdominal hernia, Large bowel partial obstruction, defer to surgery team. Elevated LFTs,likely secondary to congestive heart failure. Acute systolic congestive heart failure,Lasix. New diagnosis of severe cardiomyopathy,unclear etiology. Coronary angiography shows mild diffuse CAD. Nonischemic cardiomyopathy. Tachycardia-induced cardiomyopathy is in the differential. beta chinedu and ESHA inhibitor. Graves' disease, normal thyroid profile. Typical atrial flutter, diagnosed with giving adenosine 18 mg IV push which blocked the AV node and brought out the flutter waves. Discussed at length with the patient and recommended typical atrial flutter ablation. Likely on Saturday. Anticoagulation with Lovenox for now. Thank you for your consultation. Please call me if you have any questions. Edwardo Robbins MD, FACP, FACC, FSCAI, FHRS, CCDS Interventional Cardiology Cardiac Electrophysiology Vascular Medicine and Endovascular Interventions Gabriel ROBBINS MD Mar 05, 2020 15:11
--- NOTE | 2020-03-05 15:12 | Cardiac Procedure Note-CS/ASA ---
Pre-Procedure Note Pre-Op Procedure Note H&P Reviewed The H&P was reviewed, patient examined and no changes noted. Date H&P Reviewed: Mar 05, 2020 Time H&P Reviewed: 13:00 Conscious Sedation Pre-Proced Time 13:00 ASA Score 3 For ASA 3 and 4: Consider anesthesia and medical clearance. Also, for patients with a history of failed moderate sedation consider anesthesia. Airway Lungs Heart ASA score ASA 1: a normal healthy patient ASA 2: a patient with a mild systemic disease (mid diabetes, controlled hypertension, obesity ASA 3: a patient with a severe systemic disease that limits activity (angina, COPD, prior Myocardial infarction) ASA 4: a patient with an incapacitating disease that is a constant threat to life (CHF, renal failure) ASA 5: a moribund patient not expected to survive 24 hrs. (ruptured aneurysm) ASA 6: a declared brain- patient whose organs are being harvested. For emergent operations, add the letter E after the classification Mallampati Classification Grade 1 Sedation Plan Analgesia, Amnesia, Plan communicated to team members, Discussed options with patient/fam, Discussed risks with patient/fam The patient is an appropriate candidate to undergo the planned procedure, sedation, and anesthesia. The patient immediately re-assessed prior to indication. Gabriel DAO MD Mar 05, 2020 15:12
--- NOTE | 2020-03-05 15:13 | Coronary Angiography Report ---
Coronary Angiography Report DATE OF PROCEDURE: 03/05/20 INDICATION: New diagnosis of severe cardiomyopathy. PREOPERATIVE DIAGNOSIS: New diagnosis of severe cardiomyopathy. POSTOPERATIVE DIAGNOSIS: Mild CAD, typical atrial flutter. HISTORY: 59-year-old lady with initial admission for abdominal pain. However significantly elevated BNP was found. Patient had 30 pound weight gain in the last few months. Echocardiogram showed an EF of 25 percent. EKG shows tachycardia. Therefore, the patient was scheduled for coronary angiography. PROCEDURES PERFORMED: 1.Coronary angiography. 2.Left heart catheterization. COMPLICATIONS: None. SPECIMENS: None. ESTIMATED BLOOD LOSS: 10 mL ANESTHESIA: Conscious sedation ANTICOAGULATION: None. CONTRAST: 77 mL. FLUOROSCOPY: FLOUROSCOPY DOSE: 295 mgy. PROCEDURE DETAILS: The patient is a 59 female and was brought to the laborer steel handling after informed consent was taken. All the risks and complications were explained in detail; this included the risk of bleeding, vascular damage, stroke, KS and even . The patient was draped and prepped in the usual sterile fashion. Access was gained in the right femoral artery with a 6 [place] sheath. Coronary angiography and left heart catheterization was performed with the JL4 and JR4 catheter. FINDINGS: 1.Left main: Patent. 2.LAD: Patent. 3.Left circumflex artery: Patent. 4.RCA: Small artery with mild mid disease. No severe focal stenosis. 5.Left heart catheterization: LV pressure 93/8 mmHg. LVEDP 17 mmHg. Aortic pressure 97/74 mmHg. Severe LV systolic dysfunction with an EF of 20 percent. Global hypokinesis. No gradient across the aortic valve. 6. Patient was given adenosine 6 mg IV followed by 12 mg IV followed by 18 mg IV. With the dose of 18 mg IV, the AV node was blocked and the flutter waves were very obvious. This made the diagnosis of typical atrial flutter. CONCLUSIONS: 1. Mild CAD. Nonischemic cardiomyopathy. Could be tachycardia induced. 2. Beta chinedu and ESHA inhibitor. 3. Typical atrial flutter, likely ablation on Saturday. Edwardo Robbins MD, FACP, FACC, [facility] Interventional Cardiology Gabriel ROBBINS MD Mar 05, 2020 15:12
[2020-03-05] MEDS: meTOprolol TARTRATE 25 MG (LOPRESSOR) TABLET PO SCH ×2 (16:01→21:12)
[2020-03-05] MEDS: 1/2 NS IV SOLUTION 1,000 ML IV SCH (16:01)
[2020-03-06] VITALS (9 sets, daily range): BP systolic 107–142; BP diastolic 72–103
[2020-03-06 03:10] LABS: BASOPHILS % (AUTO) 1 % (0-10); EOSINOPHILS # (AUTO) 0.1 10^3/uL (0.0-0.3); EOSINOPHILS % (AUTO) 1 % (0-10); HEMATOCRIT 40 % (35-52); HEMOGLOBIN 12.2 g/dL (11.5-16.0); LYMPHOCYTES # (AUTO) 2.1 10^3/uL (1.0-4.0); LYMPHOCYTES % (AUTO) 36 % (12-44); MEAN CORPUSCULAR HEMOGLOBIN 29 pg (25-34); MEAN CORPUSCULAR HGB CONC 31 g/dL (32-36); MEAN CORPUSCULAR VOLUME 94 fL (80-99); MEAN PLATELET VOLUME 9.9 fL (9.0-12.2); MONOCYTES # (AUTO) 0.5 10^3/uL (0.0-1.0); MONOCYTES % (AUTO) 9 % (0-12); NEUTROPHILS # (AUTO) 3.2 10^3/uL (1.8-7.8); NEUTROPHILS % (AUTO) 54 % (42-75); PLATELET COUNT 200 10^3/uL (130-400); WHITE BLOOD COUNT 5.9 10^3/uL (4.3-11.0)
[2020-03-06 03:19] LABS: ALBUMIN 3.1 GM/DL (3.2-4.5); CHLORIDE 108 MMOL/L (98-107); POTASSIUM 4.1 MMOL/L (3.6-5.0); SODIUM 138 MMOL/L (135-145)
[2020-03-06 03:20] LABS: CALCIUM 7.9 MG/DL (8.5-10.1)
[2020-03-06 03:21] LABS: GLUCOSE 86 MG/DL (70-105); TOTAL PROTEIN 5.3 GM/DL (6.4-8.2)
[2020-03-06 03:23] LABS: BILIRUBIN,TOTAL 1.1 MG/DL (0.1-1.0); CARBON DIOXIDE 16 MMOL/L (21-32)
[2020-03-06 03:25] LABS: ALKALINE PHOSPHATASE 66 U/L (40-136); CREATININE SERUM 0.88 MG/DL (0.60-1.30); GFR ESTIMATED > 60
[2020-03-06 03:26] LABS: BUN/CREATININE RATIO 30
[2020-03-06 03:28] LABS: ALANINE AMINOTRANSFERASE 58 U/L (0-55)
[2020-03-06] MEDS: 1/2 NS IV SOLUTION 1,000 ML IV SCH (06:28)
[2020-03-06] MEDS: lisINopril 10 MG (PRINIVIL) TABLET PO SCH (08:38)
[2020-03-06] MEDS: PANTOPRAZOLE 20 MG TABLET (PROTONIX) PO SCH (08:39)
[2020-03-06] MEDS: meTOprolol TARTRATE 25 MG (LOPRESSOR) TABLET PO SCH ×3 (08:39→21:47)
[2020-03-06] MEDS ORDERED: ADENOSINE 6 MG/2 ML (ADENOCARD) VIAL IV ONE (09:10)
--- NOTE | 2020-03-06 10:58 | Progress Note - Hospitalist ---
Subjective HPI/CC On Admission Date Seen by Provider: Mar 06, 2020 Time Seen by Provider: 11:00 CC: Abdominal pain with distention HPI: This is a 59yoWF clinic patient of [facility] who has a h/o bradycardia who presented with abdominal pain and CT revealed abdominal hernia and partial SBO but also had tachycardia with elevated BNP prompting consultation with Dr Robbins. Patient was seen by Dr Willis and then she had a large BM clearing the partial SBO but ECHO revealed EF 10% so she will undergo CHF source evaluation and will need lifevest. Subjective/Events-last exam Patient denies pain Atrial ablation tomorrow Life vest fitting tomorrow No falls No dyspnea Review of Systems General: Fatigue, Malaise Objective Exam Vital Signs Vital Signs Date Time Temp Pulse Resp B/P (MAP) Pulse Ox O2 Delivery O2 Flow Rate FiO2 03/06/20 15:50 36.0 112 17 115/79 (91) 99 Room Air Capillary Refill : Less Than 3 SecondsLess Than 3 Seconds General Appearance: No Apparent Distress, WD/WN Respiratory: Chest Non Tender, Lungs Clear, Normal Breath Sounds, No Accessory Muscle Use, No Respiratory Distress Cardiovascular: Regular Rate, Rhythm, No Edema, No Gallop, No JVD, No Murmur, Normal Peripheral Pulses Neurologic/Psychiatric: Alert, Oriented x3, No Motor/Sensory Deficits, Normal Mood/Affect Results/Procedures Lab Laboratory Tests 03/06/20 02:45 Patient resulted labs reviewed. Imaging: Reviewed Imaging Report Assessment/Plan Assessment and Plan Assess & Plan/Chief Complaint Assessment: Partial SBO now resolved Elevated BNP Atrial flutter on cath procedure Non-obstructive CAD on cath Severe ischemic cardiomyopathy Plan: Ablation Saturday Monitor closely Diagnosis/Problems Diagnosis/Problems (1) SBO (small bowel obstruction) (2) Cardiomyopathy (3) Supraventricular tachycardia Status: Acute (4) CHF (congestive heart failure) Status: Acute (5) HTN (hypertension) Status: Acute Clinical Quality Measures DVT/VTE Risk/Contraindication: Risk Factor Score Per Nursin RFS Level Per Nursing on Admit: 2=Moderate SHERRY GONZALEZ DO Mar 06, 2020 10:58
[2020-03-06] MEDS ORDERED: FUROSEMIDE 40 MG/4 ML INJ (LASIX) IVP ONE (11:30)
[2020-03-06] MEDS: APIXABAN 5 MG (ELIQUIS) TABLET PO SCH ×2 (12:14→21:47)
--- NOTE | 2020-03-06 12:41 | Cardiology Progress Note ---
Cardiology SOAP Progress Note Subjective: Denies any cardiac complaints. Occasional shortness of breath. Objective: I&O/Vital Signs 03/06/20 03/06/20 03/06/20 03/06/20 01:00 01:00 02:00 03:00 Pulse 112 112 111 110 B/P (MAP) 126/96 (106) 117/78 (91) 134/95 (108) Pulse Ox 93 97 99 O2 Delivery Room Air Room Air Room Air 03/06/20 03/06/20 03/06/20 03/06/20 04:00 04:00 07:00 07:56 Temp 36.0 36.0 Pulse 112 111 111 111 Resp 17 18 B/P (MAP) 133/76 (95) 133/76 (95) 142/103 (116) Pulse Ox 98 94 92 O2 Delivery Room Air Room Air Room Air 03/06/20 03/06/20 03/06/20 08:00 12:00 12:04 Temp 36.6 Pulse 110 110 Resp 18 B/P (MAP) 107/79 (88) Pulse Ox 97 O2 Delivery Room Air Room Air 03/06/20 00:00 Intake Total 240 ml Output Total 600 ml Balance -360 ml Constitutional: appears stated age, AAO x 3; No apparent distress; well- developed, well-nourished Respiratory: chest is bilaterally symmetric, lungs clear to percussion Cardiovascular: regular rate-rhythm, tachycardia, S1 and S2 Gastrointestional: soft, audible bowel sounds; No spleenomegaly Extremities: normal range of motion, non-tender, normal inspection; No clubbing, No cyanosis; no lower extremity edema bilateral; No significant edema Neurologic/Psychiatric: no motor/sensory deficits, alert, normal mood/affect, oriented x 3, power is 5/5 both on sides Skin: normal color, warm/dry; No rash, No ulcerations Results/Procedures: Labs Laboratory Tests 03/05/20 16:20: 03/06/20 02:45: White Blood Count 5.9, Red Blood Count 4.28, Hemoglobin 12.2, Hematocrit 40, Mean Corpuscular Volume 94, Mean Corpuscular Hemoglobin 29, Mean Corpuscular Hemoglobin Concent 31L, Red Cell Distribution Width 14.7H, Platelet Count 200, Mean Platelet Volume 9.9, Immature Granulocyte % (Auto) 0, Neutrophils (%) (Auto) 54, Lymphocytes (%) (Auto) 36, Monocytes (%) (Auto) 9, Eosinophils (%) (Auto) 1, Basophils (%) (Auto) 1, Neutrophils # (Auto) 3.2, Lymphocytes # (Auto) 2.1, Monocytes # (Auto) 0.5, Eosinophils # (Auto) 0.1, Basophils # (Auto) 0.0, Immature Granulocyte # (Auto) 0.0, Sodium Level 138, Potassium Level 4.1, Chloride Level 108H, Carbon Dioxide Level 16L, Anion Gap 14, Blood Urea Nitrogen 26H, Creatinine 0.88, Estimat Glomerular Filtration Rate > 60, BUN/Creatinine Ratio 30, Glucose Level 86, Calcium Level 7.9L, Corrected Calcium 8.6, Total Bilirubin 1.1H, Aspartate Amino Transf (AST/SGOT) 44H, Alanine Aminotransferase (ALT/SGPT) 58H, Alkaline Phosphatase 66, Total Protein 5.3L, Albumin 3.1L A/P: Assessment/Dx: abdominal hernia, Large bowel partial obstruction, Elevated LFTs, Acute systolic congestive heart failure, New diagnosis of severe cardiomyopathy, Graves' disease, Typical atrial flutter Plan: abdominal hernia, Large bowel partial obstruction, defer to surgery team. Elevated LFTs,likely secondary to congestive heart failure. Acute systolic congestive heart failure, IV Lasix 80 mg daily. New diagnosis of severe cardiomyopathy,unclear etiology. Coronary angiography shows mild diffuse CAD. Nonischemic cardiomyopathy. Tachycardia-induced cardiomyopathy is in the differential. beta chinedu and ESHA inhibitor. Graves' disease, normal thyroid profile. Typical atrial flutter, diagnosed with giving adenosine 18 mg IV push which blocked the AV node and brought out the flutter waves. Discussed at length with the patient and recommended typical atrial flutter ablation. Likely on Saturday. Anticoagulation with Lovenox for now. Thank you for your consultation. Please call me if you have any questions. Edwardo Robbins MD, FACP, FACC, FSCAI, FHRS, CCDS Interventional Cardiology Cardiac Electrophysiology Vascular Medicine and Endovascular Interventions Gabriel ROBBINS MD Mar 06, 2020 12:41
[2020-03-06] MEDS: ONDANSETRON 4 MG/2 ML (SDV) Z0FRAN IVP PRN (21:48)
[2020-03-07 04:04] VITALS: BP 109/85
[2020-03-07 08:00] VITALS: BP 109/88
[2020-03-07] MEDS: APIXABAN 5 MG (ELIQUIS) TABLET PO SCH ×2 (09:35→21:36)
[2020-03-07] MEDS: lisINopril 10 MG (PRINIVIL) TABLET PO SCH (09:35)
[2020-03-07] MEDS: PANTOPRAZOLE 20 MG TABLET (PROTONIX) PO SCH (09:35)
[2020-03-07] MEDS: meTOprolol TARTRATE 25 MG (LOPRESSOR) TABLET PO SCH ×3 (09:35→21:36)
--- NOTE | 2020-03-07 09:36 | NUR ---
FLU VACCINE HELD BECAUSE OF + COVID RESULTS PER DR. WILSON ORDER TO THIS NURSE.
--- NOTE | 2020-03-07 09:37 | NUR ---
[facility] FAXED INFO TO THEM PER THEIR REQUEST.
[2020-03-07 10:00] VITALS: BP 132/88
--- NOTE | 2020-03-07 10:54 | Progress Note - Hospitalist ---
Subjective HPI/CC On Admission Date Seen by Provider: Mar 07, 2020 Time Seen by Provider: 09:30 CC: Abdominal pain with distention HPI: This is a 59yoWF clinic patient of [facility] who has a h/o bradycardia who presented with abdominal pain and CT revealed abdominal hernia and partial SBO but also had tachycardia with elevated BNP prompting consultation with Dr Robbins. Patient was seen by Dr Willis and then she had a large BM clearing the partial SBO but ECHO revealed EF 10% so she will undergo CHF source evaluation and will need lifevest. Subjective/Events-last exam Pt was preparing for ablation and her covid test pre-op was positive Will check CXR since she does have a Bicarb of 16 today down from 21 Will check BNP, lactic acid, and procalcitonin also Life vest will need to be set up Review of Systems General: Fatigue Focused Exam Lactate Level 03/07/20 12:25: Lactic Acid Level 1.65 Objective Exam Vital Signs Vital Signs Date Time Temp Pulse Resp B/P (MAP) Pulse Ox O2 Delivery O2 Flow Rate FiO2 03/08/20 03:14 36.5 109 20 113/91 (98) 96 Room Air Capillary Refill : Less Than 3 SecondsLess Than 3 Seconds General Appearance: No Apparent Distress, WD/WN, Chronically ill Respiratory: Chest Non Tender, Lungs Clear, Normal Breath Sounds, No Accessory Muscle Use, No Respiratory Distress Cardiovascular: Regular Rate, Rhythm, No Edema, No Gallop, No JVD, No Murmur, Normal Peripheral Pulses Neurologic/Psychiatric: Alert, Oriented x3, No Motor/Sensory Deficits, Normal Mood/Affect Results/Procedures Lab Laboratory Tests 03/07/20 12:25 03/08/20 03:13 Patient resulted labs reviewed. Imaging: Reviewed Imaging Report Assessment/Plan Assessment and Plan Assess & Plan/Chief Complaint Assessment: Partial SBO now resolved Elevated BNP Atrial flutter on cath procedure Non-obstructive CAD on cath Severe ischemic cardiomyopathy Plan: Ablation Saturday Monitor closely 03/07/20: Ablation delayed due to COVID Check septic w/u Diagnosis/Problems Diagnosis/Problems (1) SBO (small bowel obstruction) (2) Cardiomyopathy (3) Supraventricular tachycardia Status: Acute (4) CHF (congestive heart failure) Status: Acute (5) HTN (hypertension) Status: Acute (6) COVID-19 Clinical Quality Measures DVT/VTE Risk/Contraindication: Risk Factor Score Per Nursin RFS Level Per Nursing on Admit: 2=Moderate SHERRY GONZALEZ DO Mar 07, 2020 10:54
--- NOTE | 2020-03-07 12:41 | Diagnostic Imaging Report ---
INDICATION: Shortness of breath. Covid positive. COMPARISON: 03/04/2020. FINDINGS: Allowing for AP technique, the cardiac silhouette has not significantly changed. The central pulmonary vascularity is appropriate. There are no plain film findings of significant interstitial or alveolar infiltrates. There is no dense consolidation. There is no evidence of an effusion. There is no pneumothorax. IMPRESSION: Enlarged cardiac silhouette, unchanged from the prior examination, believed to be secondary to body habitus and AP projection. By plain radiography, there are no findings to suggest developing interstitial or alveolar infiltrate or consolidation. The report was faxed to Infection Control by eloy@12:44 PM. Dictated by: Dictated on workstation # [id number]
--- NOTE | 2020-03-07 12:41 | Cardiology Progress Note ---
Cardiology SOAP Progress Note Subjective: no cardiac complaints. Objective: I&O/Vital Signs 03/07/20 03/07/20 03/07/20 03/07/20 01:00 04:04 07:00 08:00 Temp 37.0 Pulse 100 110 111 108 Resp 18 18 B/P (MAP) 109/85 (93) 109/88 (95) Pulse Ox 95 98 O2 Delivery Room Air Room Air 03/07/20 00:00 Intake Total 680 ml Output Total 600 ml Balance 80 ml Constitutional: appears stated age, AAO x 3; No apparent distress; well- developed, well-nourished Respiratory: No accessory muscle use, No respiratory distress Cardiovascular: regular rate-rhythm, tachycardia Gastrointestional: No spleenomegaly Extremities: normal range of motion, non-tender, normal inspection; No clubbing, No cyanosis, No significant edema Neurologic/Psychiatric: no motor/sensory deficits, alert, normal mood/affect, o riented x 3 Skin: normal color, warm/dry; No rash, No ulcerations Results/Procedures: Labs Laboratory Tests 03/07/20 12:25: A/P: Assessment/Dx: abdominal hernia, Large bowel partial obstruction, Elevated LFTs, Acute systolic congestive heart failure,improved significantly New diagnosis of severe cardiomyopathy, Graves' disease, Typical atrial flutter COVID-19 positive Plan: abdominal hernia, Large bowel partial obstruction, defer to surgery team. Elevated LFTs,likely secondary to congestive heart failure. Acute systolic congestive heart failure, IV Lasix 80 mg daily. New diagnosis of severe cardiomyopathy,unclear etiology. Coronary angiography shows mild diffuse CAD. Nonischemic cardiomyopathy. Tachycardia-induced cardiomyopathy is in the differential. beta chinedu and ESHA inhibitor. awaiting LifeVest. Graves' disease, normal thyroid profile. Typical atrial flutter, diagnosed with giving adenosine 18 mg IV push which blocked the AV node and brought out the flutter waves. EP study and atrial flutter ablation had to be postponed since the patient was diagnosed with COVID- 19. Increase beta chinedu. Change Lovenox to Eliquis. Thank you for your consultation. Please call me if you have any questions. Edwardo Robbins MD, FACP, FACC, FSCAI, FHRS, CCDS Interventional Cardiology Cardiac Electrophysiology Vascular Medicine and Endovascular Interventions Focused Exam Lactate Level 03/07/20 12:25: Lactic Acid Level Laboratory Tests Test 03/07/20 12:25 Gabriel ROBBINS MD Mar 07, 2020 12:41
[2020-03-07 12:47] LABS: POTASSIUM 4.1 MMOL/L (3.6-5.0)
[2020-03-07 12:49] LABS: CALCIUM 8.4 MG/DL (8.5-10.1)
[2020-03-07 12:53] LABS: CREATININE SERUM 1.08 MG/DL (0.60-1.30)
--- NOTE | 2020-03-07 14:56 | NUR ---
CM/SS: Visited with pt (via phone in room) about the Life Vest application. She is able to complete the information and this worker will fax in to the [employer]. She will get the information from her daughter as to the household information, as she lives with her. Follow up - pt is able to get the copy of the pay stub from daughter. She will try and get it sent today. This worker will forward the information to [employer]. This worker will fwd the information to [employer].
[2020-03-07 16:10] VITALS: BP 103/76
[2020-03-07] MEDS: ACETAMINOPHEN 500 MG TAB (TYLENOL) PO PRN (16:58)
[2020-03-07 20:55] VITALS: BP 103/87
[2020-03-08 00:48] VITALS: BP 100/86
[2020-03-08] MEDS: ACETAMINOPHEN 500 MG TAB (TYLENOL) PO PRN (00:49)
[2020-03-08] MEDS: ONDANSETRON 4 MG/2 ML (SDV) Z0FRAN IVP PRN (03:11)
[2020-03-08 03:14] VITALS: BP 113/91
[2020-03-08 03:39] LABS: BASOPHILS % (AUTO) 0 % (0-10); EOSINOPHILS % (AUTO) 1 % (0-10); HEMATOCRIT 41 % (35-52); HEMOGLOBIN 12.7 g/dL (11.5-16.0); LYMPHOCYTES # (AUTO) 2.4 10^3/uL (1.0-4.0); LYMPHOCYTES % (AUTO) 37 % (12-44); MEAN CORPUSCULAR HEMOGLOBIN 29 pg (25-34); MEAN CORPUSCULAR HGB CONC 31 g/dL (32-36); MEAN CORPUSCULAR VOLUME 92 fL (80-99); MEAN PLATELET VOLUME 9.9 fL (9.0-12.2); MONOCYTES # (AUTO) 0.7 10^3/uL (0.0-1.0); MONOCYTES % (AUTO) 10 % (0-12); NEUTROPHILS # (AUTO) 3.4 10^3/uL (1.8-7.8); NEUTROPHILS % (AUTO) 52 % (42-75); PLATELET COUNT 247 10^3/uL (130-400); WHITE BLOOD COUNT 6.6 10^3/uL (4.3-11.0)
[2020-03-08 03:49] LABS: ALBUMIN 3.2 GM/DL (3.2-4.5); POTASSIUM 3.7 MMOL/L (3.6-5.0)
[2020-03-08 03:50] LABS: CALCIUM 8.1 MG/DL (8.5-10.1)
[2020-03-08 03:51] LABS: TOTAL PROTEIN 5.5 GM/DL (6.4-8.2)
[2020-03-08 03:53] LABS: BILIRUBIN,TOTAL 0.7 MG/DL (0.1-1.0)
[2020-03-08 03:55] LABS: CREATININE SERUM 1.05 MG/DL (0.60-1.30)
[2020-03-08] MEDS: PANTOPRAZOLE 20 MG TABLET (PROTONIX) PO SCH (08:30)
[2020-03-08] MEDS: APIXABAN 5 MG (ELIQUIS) TABLET PO SCH (08:31)
[2020-03-08] MEDS: meTOprolol TARTRATE 25 MG (LOPRESSOR) TABLET PO SCH (08:32)
[2020-03-08] MEDS: lisINopril 10 MG (PRINIVIL) TABLET PO SCH (08:32)
[2020-03-08 08:33] VITALS: BP 128/102
--- NOTE | 2020-03-08 09:32 | NUR ---
CM/SS: Shaneka Palma is contacted - [phone] - to check on the status of the pts application. It is incomplete a this time. They need it to be on a company generated form. They are sending a new form via email to this worker. The Customer Services Molecular Modeler for this territory is Aaliyah Kent -phone number [phone]. This worker will follow up.
[2020-03-08] MEDS ORDERED: meTOprolol TARTRATE 50 MG (LOPRESSOR) TAB PO SCH (10:15)
[2020-03-08] MEDS ORDERED: ONDA8TAB13 PO (10:24)
[2020-03-08] MEDS ORDERED: METO50TA15 PO (10:24)
[2020-03-08] MEDS ORDERED: LISI10TA2 PO (10:24)
[2020-03-08] MEDS ORDERED: SUCR1TAB36 PO (10:24)
[2020-03-08] MEDS ORDERED: APIX5TAB PO (10:24)
--- NOTE | 2020-03-08 10:24 | Discharge Summary ---
Discharge Summary Hospital Course Was the Problem List Reviewed?: Yes Problems/Dx: (1) SBO (small bowel obstruction) (2) Cardiomyopathy (3) Supraventricular tachycardia Status: Acute (4) CHF (congestive heart failure) Status: Acute (5) HTN (hypertension) Status: Acute (6) COVID-19 Hospital Course Date of Admission: Mar 03, 2020 at 21:25 Admission Diagnosis : Family Physician/Provider: [facility] Date of Discharge: 03/08/20 Discharge Diagnosis: Partial SBO, non-ischemic cardiomyopathy, COVID+ asymptomatic Hospital Course: Hospital course: Pt had a complicated convoluted hospital course when she was admitted for a partial bowel obstruction elevated BNP and an arrhythmia Pt was found to have atrial flutter congestive heart failure EF of 10% underwent cardiac cath, no intervention and needed a life vest at discharge. The bowel obstruction resolved, she was Covid positive, the swab was obtained prior to procedure of cardiac catheterization which ended up being positive but asymptomatic. Pt was discharged in improved condition. Labs and Pending Lab Test: Laboratory Tests 03/07/20 12:25: Sodium Level 136, Potassium Level 4.1, Chloride Level 103, Carbon Dioxide Level 24, Anion Gap 9, Blood Urea Nitrogen 26H, Creatinine 1.08, Estimat Glomerular Filtration Rate 52, BUN/Creatinine Ratio 24, Glucose Level 119H, Lactic Acid Level 1.65, Calcium Level 8.4L, C-Reactive Protein High Sensitivity 1.26H, Procalcitonin 0.08 03/08/20 03:13: Sodium Level 139, Potassium Level 3.7, Chloride Level 105, Carbon Dioxide Level 22, Anion Gap 12, Blood Urea Nitrogen 28H, Creatinine 1.05, Estimat Glomerular Filtration Rate 54, BUN/Creatinine Ratio 27, Glucose Level 102, Calcium Level 8.1L, White Blood Count 6.6, Red Blood Count 4.45, Hemoglobin 12.7, Hematocrit 41, Mean Corpuscular Volume 92, Mean Corpuscular Hemoglobin 29, Mean Corpuscular Hemoglobin Concent 31L, Red Cell Distribution Width 14.7H, Platelet Count 247, Mean Platelet Volume 9.9, Immature Granulocyte % (Auto) 0, Neutrophils (%) (Auto) 52, Lymphocytes (%) (Auto) 37, Monocytes (%) (Auto) 10, Eosinophils (%) (Auto) 1, Basophils (%) (Auto) 0, Neutrophils # (Auto) 3.4, Lymphocytes # (Auto) 2.4, Monocytes # (Auto) 0.7, Eosinophils # (Auto) 0.0, Basophils # (Auto) 0.0, Immature Granulocyte # (Auto) 0.0, Corrected Calcium 8.7, Total Bilirubin 0.7, Aspartate Amino Transf (AST/SGOT) 58H, Alanine Aminotransferase (ALT/SGPT) 90H, Alkaline Phosphatase 75, Total Protein 5.5L, Albumin 3.2 Home Meds Active Ondansetron Odt (Ondansetron) 8 Mg Tab.rapdis 8 Mg PO Q6H Lisinopril 10 Mg Tablet 10 Mg PO DAILY@0900 Metoprolol Tartrate 50 Mg Tablet 50 Mg PO BID Eliquis (Apixaban) 5 Mg Tablet 5 Mg PO BID Carafate (Sucralfate) 1 Gm Tablet 1 Gm PO ACHS PRN Reported Nexium 24Hr (Esomeprazole Magnesium) 20 Mg Capsule.dr 20 Mg PO DAILY Tylenol Extra Strength (Acetaminophen) 500 Mg Tablet 1,000 Mg PO Q8H PRN Assessment/Pt Instructions Cardiology f/u Discharge Planning: <30 minutes discharge planning Discharge Instructions Discharge Diet: No Restrictions Discharge Physical Examination Vital Signs Vital Signs Date Time Temp Pulse Resp B/P (MAP) Pulse Ox O2 Delivery O2 Flow Rate FiO2 03/08/20 08:37 Room Air 03/08/20 08:33 36.4 110 18 128/102 (111) 95 General Appearance: No Apparent Distress, WD/WN, Chronically ill Respiratory: Lungs Clear Cardiovascular: Regular Rate, Rhythm Neurologic/Psychiatric: Alert, Oriented x3, No Motor/Sensory Deficits, Normal Mood/Affect Allergies: Coded Allergies: morphine (Unverified Allergy, Mild, 11/01/05) No Known Drug Allergies (Unverified , 07/20/05) Discharge Summary Date of Admission Mar 03, 2020 at 21:25 Date of Discharge Discharge Date: Mar 04, 2020 Admission Diagnosis Abdominal pain with N/V and partial SBO on CT scan New cardiomyopathy on ECHO EF 10% Appreciate Darwin Willis and Itzel Discharge Diagnosis Assessment: Partial SBO now resolved Elevated BNP Atrial flutter on cath procedure Non-obstructive CAD on cath Severe ischemic cardiomyopathy Plan: Ablation Saturday Monitor closely 03/07/20: Ablation delayed due to COVID Check septic w/u (1) SBO (small bowel obstruction) (2) Cardiomyopathy (3) Supraventricular tachycardia Status: Acute (4) CHF (congestive heart failure) Status: Acute (5) HTN (hypertension) Status: Acute (6) COVID-19 Clinical Quality Measures DVT/VTE Risk/Contraindication: Risk Factor Score Per Nursin RFS Level Per Nursing on Admit: 2=Moderate SHERRY GONZALEZ DO Mar 08, 2020 10:24
--- NOTE | 2020-03-08 11:43 | NUR ---
CM/SS: Visited with Aaliyah Donte - Nora Palma - [phone] - She is requesting the application and the letter of no income to be sent at the same time. She is also informed that pt will be discharging today and will follow up with the lifevest on an outpatient basis. She goes over the instructions and they are written along with her discharge information. SHAR Dai informed. Telephone call to pt (via room phone [phone]) she is informed about the application and the letter of support. Pt verbalizes understanding with what is needed to be done once she is discharged from the hospital.
--- NOTE | 2020-03-08 11:52 | NUR ---
Telephone call to pt (room phone) -[phone] - coordinating with pt her transportation. Pt has some issues with determining who can leaf size picker pt. Daughter is in [place] working and so is local. Pt is advised for son not to be able to pick her up based on being COVID positive. This worker will work on a alternative means of transportation. Talk with Steve Reid - Infection Control - [place] [facility]. Suggested that this worker call the Kim Munoz - she is over the [employer]. Call to Kim Munoz - [phone] - she gives the ok for pt to be transported by the [employer]. The time for leaf size picker will be 11:30am. SHAR Dai is notified
== END 2020-03-08 11:30 | disposition home or self-care (01) | DRG 286 ==
LOC: EDUNIT# 17:42 → ER 17:44 → CSD 21:25
PROVIDERS: ADMIT Internal Medicine; ATTEND Internal Medicine
PROC: 4A023N7 Measurement of Cardiac Sampling and Pressure, Left Heart, Percutaneous Approach (ICD-10-PCS; principal; 2020-03-05)
PROC: B2111ZZ Fluoroscopy of Multiple Coronary Arteries using Low Osmolar Contrast (ICD-10-PCS; 2020-03-05)
PROC: B2151ZZ Fluoroscopy of Left Heart using Low Osmolar Contrast (ICD-10-PCS; 2020-03-05)
DX: I11.0 Hypertensive heart disease with heart failure (principal); I50.21 Acute systolic (congestive) heart failure; U07.1 COVID-19; K43.0 Incisional hernia with obstruction, without gangrene; I47.1 Supraventricular tachycardia; I48.92 Unspecified atrial flutter; E86.0 Dehydration; I25.5 Ischemic cardiomyopathy; I25.10 Atherosclerotic heart disease of native coronary artery without angina pectoris; E11.9 Type 2 diabetes mellitus without complications; K21.9 Gastro-esophageal reflux disease without esophagitis; E03.9 Hypothyroidism, unspecified; E05.00 Thyrotoxicosis with diffuse goiter without thyrotoxic crisis or storm; E66.9 Obesity, unspecified; F17.200 Nicotine dependence, unspecified, uncomplicated; Z79.84 Long term (current) use of oral hypoglycemic drugs; Z68.36 Body mass index [BMI] 36.0-36.9, adult
CPT/HCPCS: 36415; 71045; 71275; 74022; 74177; 80048; 80053; 81000; 82150; 82550; 82553; 83605; 83690; 83735; 83874; 83880; 84145; 84443; 84484; 85025; 85379; 85610; 85730; 86141; 87635; 93005; 93041; 93306; 93458; 94664; 96374; 96375

== ENCOUNTER 2020-03-20 13:32 | Observation (INO) | payer OTHER ==
[~2020-03-20] VITALS: Ht 160 cm; Wt 98.1 kg
[~2020-03-20 13:32] MED LIST: ACET-2267 PO; APIX5TAB PO; ESOM20CA58 PO; LISI10TA2 PO; METO50TA15 PO; ONDA8TAB13 PO; SUCR1TAB36 PO
[2020-03-20 14:13] LABS: BASOPHILS % (AUTO) 0 % (0-10); EOSINOPHILS % (AUTO) 1 % (0-10); HEMATOCRIT 47 % (35-52); HEMOGLOBIN 14.2 g/dL (11.5-16.0); LYMPHOCYTES # (AUTO) 2.2 10^3/uL (1.0-4.0); LYMPHOCYTES % (AUTO) 28 % (12-44); MEAN CORPUSCULAR HEMOGLOBIN 28 pg (25-34); MEAN CORPUSCULAR HGB CONC 30 g/dL (32-36); MEAN CORPUSCULAR VOLUME 91 fL (80-99); MEAN PLATELET VOLUME 9.8 fL (9.0-12.2); MONOCYTES # (AUTO) 0.8 10^3/uL (0.0-1.0); MONOCYTES % (AUTO) 10 % (0-12); NEUTROPHILS # (AUTO) 4.8 10^3/uL (1.8-7.8); NEUTROPHILS % (AUTO) 61 % (42-75); PLATELET COUNT 325 10^3/uL (130-400)
[2020-03-20] MEDS ORDERED: ONDANSETRON 4 MG/2 ML (SDV) Z0FRAN IVP ONE (14:15)
[2020-03-20] MEDS ORDERED: ASPIRIN 81 MG CHEW (CHILDREN'S ASA) PO ONE (14:15)
--- NOTE | 2020-03-20 14:21 | ED Cardiac General ---
History of Present Illness General Chief Complaint: Cardiac/General Problems Stated Complaint: BILAT FOOT/LEG SWELLING Nursing Triage Note: PT AMB TO [facility] WITH COMPLAINT OF BILATERAL LEG PAIN AND SWELLING. PT WAS ADMITTED TO HOSPITAL Feb FOR HEART FAILURE AND COVID +. STATES LEG PAIN STARTED LAST NIGHT. PT HAS BEEN TAKING ELIQUIS DAILY SINCE DISCHARGE. History of Present Illness Date Seen by Provider: Mar 20, 2020 Time Seen by Provider: 13:55 Initial Comments 60-year-old female with significant cardiac history presents for bilateral lower extremity swelling. She was admitted here March 05 through March 09 for cardiac care and tested positive for Covid, asymptomatic. She is past her isolation time. Since then she has been having progressive fatigue and swelling in her lower extremities. She is on Eliquis 5 mg twice daily. She is to be fitted with a LifeVest on 03/22/2020. In reviewing her medication she is not taking any diuretic. She does report her lower extremities seem less swollen today than they have been. She has multiple small abrasions and scabs to bilateral lower extremities, the patient denies any injuries, fleas or bug bites. She denies there being pruritus or picking at skin issues. No erythema, warmth or induration, does not appear to be cellulitis. She denies chest pain, chronic SOA (no worse than baseline for her), no cough or fevers. Nausea since last evening, has been trying to keep hydrated with sips of water. Took Zofran po last pm for nausea and vomiting, with little to no improvement. Continuing to have wretching but no vomitus. she denies O2 at home or CPAP at night. Timing/Duration: intermittent Severity: mild NTG SL FISHERIES TECHNICIAN: No ASA po FISHERIES TECHNICIAN: No Associated Systoms: No Chest Pain, No Cough, No Diaphoresis, No Fever/Chills, No Headaches; Loss of Appetite, Malaise, Nausea/Vomiting; No Rash, No Seizure; Shortness of Air; No Syncope; Weakness Allergies and Home Medications Allergies Coded Allergies: morphine (Unverified Allergy, Mild, 11/01/05) No Known Drug Allergies (Unverified , 07/20/05) Home Medications Acetaminophen 500 Mg Tablet, 1,000 MG PO Q8H PRN for PAIN-MILD (1-4), (Reported) Apixaban 5 Mg Tablet, 5 MG PO BID Prescribed by: SHERRY GONZALEZ on 03/08/20 1024 Esomeprazole Magnesium 20 Mg Capsule.dr, 20 MG PO DAILY, (Reported) Lisinopril 10 Mg Tablet, 10 MG PO DAILY@0900 Prescribed by: SHERRY GONZALEZ on 03/08/20 1024 Metoprolol Tartrate 50 Mg Tablet, 50 MG PO BID Prescribed by: SHERRY GONZALEZ on 03/08/20 1024 Ondansetron 8 Mg Tab.rapdis, 8 MG PO Q6H Prescribed by: SEHRRY GONZALEZ on 03/08/20 1024 Sucralfate 1 Gm Tablet, 1 GM PO ACHS PRN for stomach acid Prescribed by: SHERRY GONZALEZ on 03/08/20 1024 Patient Home Medication List Home Medication List Reviewed: Yes Review of Systems Review of Systems Constitutional: no symptoms reported, see HPI Respiratory: See HPI; Denies Cough; Shortness of Air, SOA With Exertion, SOA at Rest Cardiovascular: No Symptoms Reported, See HPI; Denies Chest Pain; Edema (bilat LEs) Gastrointestinal: See HPI, Nausea, Vomiting Genitourinary: No Symptoms Reported, See HPI Musculoskeletal: no symptoms reported, see HPI Skin: see HPI, other (lesions bilat LEs) Psychiatric/Neurological: No Symptoms Reported, See HPI Past Cdqdezh-Pdiwzf-Ohbrxw Hx Past Med/Social Hx: Reviewed Nursing Past Med/Soc Hx Patient Social History Alcohol Use: Denies Use Recreational Drug Use: No Drug of Choice: THC IN PAST Smoking Status: Former Smoker Former Smoker, Quit: Feb 23, 2020 Recent Foreign Travel: No Contact w/Someone Who Travel: No Recent Infectious Disease Expo: No Recent Hopitalizations: No Immunizations Up To Date Tetanus Booster (TDap): Unknown PED Vaccines UTD: Yes Seasonal Allergies Seasonal Allergies: Yes Past Medical History Surgeries: Yes (OPEN CHOLECYSTECTOMY; HIATAL HERNIA REPAIR) Abdominal, Gallbladder Respiratory: No Asthma, Chronic Bronchitis Cardiac: Yes (BRADYCARDIA) Palpitations 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 oz. kg; 37.00 BMI Method: General Appearance: WD/WN, Mild Distress HEENT: PERRL/EOMI, TMs Normal, Normal ENT Inspection, Pharynx Normal Neck: Full Range of Motion, Normal Inspection, Non Tender, Supple; No Carotid Bruit, No JVD, No Lymphadenopathy (L), No Lymphadenopathy (R) Respiratory: Chest Non Tender, Lungs Clear, Normal Breath Sounds, No Respiratory Distress Cardiovascular: No JVD, No Murmur, Normal Peripheral Pulses, Tachycardia Gastrointestinal: Normal Bowel Sounds, Non Tender, Soft Extremity: Normal Capillary Refill, Calf Tenderness (subjectively complains, secondary to being tight. No increased pain with Jonathan testing), Pedal Edema (2+ Pitting), Other (healing areas to bilat LEs, no erythema, warmth or induration, no active bleeding. Patient denies picking or itching sores. ) Neurologic/Psychiatric: Alert, Oriented x3, No Motor/Sensory Deficits, Normal Mood/Affect Skin: Normal Color, Warm/Dry; No Erythema Progress/Results/Core Measures Results/Orders Lab Results Laboratory Tests Test 03/20/20 14:02 Range/Units White Blood Count 8.0 4.3-11.0 10^3/uL Red Blood Count 5.12 H 3.80-5.11 10^6/uL Hemoglobin 14.2 11.5-16.0 g/dL Hematocrit 47 35-52 % Mean Corpuscular Volume 91 80-99 fL Mean Corpuscular Hemoglobin 28 25-34 pg Mean Corpuscular Hemoglobin Concent 30 L 32-36 g/dL Red Cell Distribution Width 15.5 H 10.0-14.5 % Platelet Count 325 130-400 10^3/uL Mean Platelet Volume 9.8 9.0-12.2 fL Immature Granulocyte % (Auto) 0 % Neutrophils (%) (Auto) 61 42-75 % Lymphocytes (%) (Auto) 28 12-44 % Monocytes (%) (Auto) 10 0-12 % Eosinophils (%) (Auto) 1 0-10 % Basophils (%) (Auto) 0 0-10 % Neutrophils # (Auto) 4.8 1.8-7.8 10^3/uL Lymphocytes # (Auto) 2.2 1.0-4.0 10^3/uL Monocytes # (Auto) 0.8 0.0-1.0 10^3/uL Eosinophils # (Auto) 0.0 0.0-0.3 10^3/uL Basophils # (Auto) 0.0 0.0-0.1 10^3/uL Immature Granulocyte # (Auto) 0.0 0.0-0.1 10^3/uL Prothrombin Time 18.0 H 12.2-14.7 SEC INR Comment 1.4 0.8-1.4 Activated Partial Thromboplast Time 32 24-35 SEC D-Dimer 1.50 H 0.00-0.49 UG/ML Sodium Level 140 135-145 MMOL/L Potassium Level 4.6 3.6-5.0 MMOL/L Chloride Level 107 98-107 MMOL/L Carbon Dioxide Level 21 21-32 MMOL/L Anion Gap 12 5-14 MMOL/L Blood Urea Nitrogen 24 H 7-18 MG/DL Creatinine 1.17 0.60-1.30 MG/DL Estimat Glomerular Filtration Rate 47 BUN/Creatinine Ratio 21 Glucose Level 122 H 70-105 MG/DL Calcium Level 8.5 8.5-10.1 MG/DL Corrected Calcium 8.9 8.5-10.1 MG/DL Magnesium Level 2.3 1.6-2.4 MG/DL Total Bilirubin 0.9 0.1-1.0 MG/DL Aspartate Amino Transf (AST/SGOT) 36 H 5-34 U/L Alanine Aminotransferase (ALT/SGPT) 70 H 0-55 U/L Alkaline Phosphatase 104 40-136 U/L Myoglobin 48.2 10.0-92.0 NG/ML Troponin I < 0.028 <0.028 NG/ML B-Type Natriuretic Peptide 2566.1 H <100.0 PG/ML Total Protein 6.2 L 6.4-8.2 GM/DL Albumin 3.5 3.2-4.5 GM/DL My Orders Orders - REVA HOLLINGSWORTH Cbc With Automated Diff (03/20/20 14:06) Magnesium (03/20/20 14:06) Chest 1 View, Ap/Pa Only (03/20/20 14:06) Ekg Tracing (03/20/20 14:06) Comprehensive Metabolic Panel (03/20/20 14:06) Myoglobin Serum (03/20/20 14:06) Protime With Inr (03/20/20 14:06) Partial Thromboplastin Time (03/20/20 14:06) O2 (03/20/20 14:06) Monitor-Rhythm Ecg Trace Only (03/20/20 14:06) Ed Iv/Invasive Line Start (03/20/20 14:06) BNP (03/20/20 14:06) Fibrin Degradation Products (03/20/20 14:06) Troponin I (03/20/20 14:06) Aspirin Chewable Tablet (Baby Aspirin Ch (03/20/20 14:15) Ondansetron Injection (Zofran Injectio (03/20/20 14:15) Ed Iv/Invasive Line Start (03/20/20 14:47) Ns (Ivpb) (Sodium Chloride 0.9%) (03/20/20 15:00) Medications Given in ED Current Medications Medications Dose Ordered Sig/Sigrid Route Start Time Stop Time Status Last Admin Dose Admin Aspirin 324 mg ONCE ONCE PO 03/20/20 14:15 03/20/20 14:16 DC 03/20/20 14:37 324 MG Ondansetron HCl 8 mg ONCE ONCE IVP 03/20/20 14:15 03/20/20 14:16 DC 03/20/20 14:37 8 MG Sodium Chloride 250 ml @ 0 mls/hr Q0M ONCE IV 03/20/20 15:00 03/20/20 15:01 DC 03/20/20 16:00 0 MLS/HR Vital Signs/I&O 03/20/20 13:54 Temp 35.7 Pulse 113 Resp 22 B/P (MAP) 119/103 (108) Pulse Ox 97 O2 Delivery Room Air Blood Pressure Mean: 108 Progress Progress Note : Time: 13:55 Progress Note patient seen and evaluated, will give Zofran 8 mg IV for nausea. Labs, EKG, Chest x-ray and ASA 324 mg orally. 1445 patient reports improvement in nausea after zofran, taking sips of water. SaO2 90-94% on RA, patient would like to try O2 per NC, applied at 1.5L and SaO2 remained 92-96% but patient reported less SOA. 1515 NS 250 ml IV. [address] Robbins. Patient denies chest pain or nausea. HR 86-116. SaO2 94% on O2 NC at 1.5L. [address] Robbins, recommended admission, telemetry, Dr. Martínez to see i n AM. Should be getting life vest 03/22/20. Patient agreeable with plan for admission. [address] Jimenez, agreed with plan for admission. Initial ECG Impression Date: Mar 20, 2020 Initial ECG Impression Time: 14:04 Initial ECG Rate: 113 Initial ECG Rhythm: A Fib/Flutter Initial ECG Intervals OR 180, QRSD 87, QT 336, QTc 461. [place] P 196, QRS 72, T 225 Initial ECG Impression: Nonspecific Changes (A flutter) Initial ECG Comparisson: Unchanged Comment Reviewed with Dr. Soliz. Diagnostic Imaging Diagonstic Imaging: Xray Plain Films/CT/US/NM/MRI: chest Comments NAME: CALEB WHYTE [facility] REC#: [id number] PT STATUS: REG ER : 1960 PHYSICIAN: REVA HOLLINGSWORTH ADMIT DATE: 03/20/20/ER Signed Date of Exam:03/20/20 CHEST 1 VIEW, AP/PA ONLY CHEST 1 VIEW, AP/PA ONLY Indication: Chest pain. Comparison: 03/07/2020 Findings: No focal airspace disease in the visualized lungs. Please note that the posterior lower lobes are poorly evaluated by portable radiography. No pleural effusion or pneumothorax. Stable enlargement of the cardiac silhouette. Impression: 1. No acute cardiopulmonary process by portable radiography. Dictated by: Dictated on workstation # [id number] Dict: 03/20/20 1427 Trans: 03/20/20 1428 [facility] [id number] Interpreted by: SANDRINE PETERSON MD Electronically signed by: SANDRINE PETERSON MD 03/20/20 1428 Reviewed: Reviewed by Me Departure Impression Primary Impression: Atrial flutter Qualified Codes: I48.4 - Atypical atrial flutter Additional Impressions: Nausea and vomiting Qualified Codes: R11.2 - Nausea with vomiting, unspecified Heart failure Qualified Codes: I50.9 - Heart failure, unspecified Disposition: ADMITTED INPATIENT Condition: Stable Admissions Decision to Admit Reason: Admit from ER (General) Decision to Admit/Date: Mar 20, 2020 Time/Decision to Admit Time: 16:00 Departure-Patient Inst. Referrals: [facility] (PCP/Family) Primary Care Physician Copy Copies To 1: Gabriel ROBBINS MD; MARLEEN MARTÍNEZ MD, AMY ARNP Mar 20, 2020 14:21
[2020-03-20 14:23] LABS: ALBUMIN 3.5 GM/DL (3.2-4.5); POTASSIUM 4.6 MMOL/L (3.6-5.0)
[2020-03-20 14:25] LABS: CALCIUM 8.5 MG/DL (8.5-10.1); INR 1.4 (0.8-1.4)
[2020-03-20 14:26] LABS: TOTAL PROTEIN 6.2 GM/DL (6.4-8.2)
[2020-03-20 14:28] LABS: BILIRUBIN,TOTAL 0.9 MG/DL (0.1-1.0)
[2020-03-20 14:29] LABS: CREATININE SERUM 1.17 MG/DL (0.60-1.30)
--- NOTE | 2020-03-20 14:30 | Diagnostic Imaging Report ---
CHEST 1 VIEW, AP/PA ONLY Indication: Chest pain. Comparison: 03/07/2020 Findings: No focal airspace disease in the visualized lungs. Please note that the posterior lower lobes are poorly evaluated by portable radiography. No pleural effusion or pneumothorax. Stable enlargement of the cardiac silhouette. Impression: 1. No acute cardiopulmonary process by portable radiography. Dictated by: Dictated on workstation # [id number]
[2020-03-20 14:32] LABS: MAGNESIUM 2.3 MG/DL (1.6-2.4)
[2020-03-20] MEDS ORDERED: NS (IVPB) 250 ML IV ONE (15:00)
[2020-03-20] MEDS ORDERED: FUROSEMIDE 40 MG/4 ML INJ (LASIX) IVP ONE (16:45)
--- NOTE | 2020-03-20 17:25 | NUR ---
CALEB WHYTE admitted to room 404-1, with an admitting diagnosis of CHF, A FLUTTER, NAUSEA/VOMITING, on 03/20/20 from ED via CART, accompanied by ED STAFF. CALEB WHYTE introduced to surroundings, call light, bed controls, phone, TV, temperature control, lights, meal times, smoking policy, visitor policy, side rail policy, bathrooms and showers. Patient Rights given to patient in the handbook. CALEB WHYTE verbalizes understanding that [facility] is not responsible for the loss or damage to any personal effects or valuables that are kept in the patients posession during their hospitalization. CALEB WYHTE verbalizes understanding of Interdisciplinary Patient Education. Patient and/or family were informed about the Rapid Response Team and its purpose.
[2020-03-20] MEDS ORDERED: ACETAMINOPHEN 325 MG TABLET PO PRN (17:45)
[2020-03-20] MEDS ORDERED: ONDANSETRON 4 MG/2 ML (SDV) Z0FRAN IVP PRN (17:45)
[2020-03-20 17:48] VITALS: BP 119/88
[2020-03-20 19:00] VITALS: BP 125/91
[2020-03-20] MEDS: APIXABAN 5 MG (ELIQUIS) TABLET PO SCH (20:49)
[2020-03-21] VITALS (7 sets, daily range): BP systolic 96–140; BP diastolic 72–87
[2020-03-21 06:12] LABS: BASOPHILS % (AUTO) 1 % (0-10); EOSINOPHILS # (AUTO) 0.1 10^3/uL (0.0-0.3); EOSINOPHILS % (AUTO) 2 % (0-10); HEMATOCRIT 45 % (35-52); HEMOGLOBIN 13.7 g/dL (11.5-16.0); LYMPHOCYTES # (AUTO) 2.2 10^3/uL (1.0-4.0); LYMPHOCYTES % (AUTO) 34 % (12-44); MEAN CORPUSCULAR HEMOGLOBIN 28 pg (25-34); MEAN CORPUSCULAR HGB CONC 30 g/dL (32-36); MEAN CORPUSCULAR VOLUME 92 fL (80-99); MONOCYTES # (AUTO) 0.8 10^3/uL (0.0-1.0); MONOCYTES % (AUTO) 12 % (0-12); NEUTROPHILS # (AUTO) 3.5 10^3/uL (1.8-7.8); NEUTROPHILS % (AUTO) 53 % (42-75); PLATELET COUNT 285 10^3/uL (130-400); WHITE BLOOD COUNT 6.6 10^3/uL (4.3-11.0)
[2020-03-21 06:28] LABS: ALBUMIN 3.4 GM/DL (3.2-4.5)
[2020-03-21 06:29] LABS: POTASSIUM 4.8 MMOL/L (3.6-5.0)
[2020-03-21 06:30] LABS: CALCIUM 8.4 MG/DL (8.5-10.1)
[2020-03-21 06:31] LABS: TOTAL PROTEIN 5.6 GM/DL (6.4-8.2)
[2020-03-21 06:33] LABS: BILIRUBIN,TOTAL 1.2 MG/DL (0.1-1.0)
[2020-03-21 06:35] LABS: CREATININE SERUM 1.19 MG/DL (0.60-1.30)
[2020-03-21] MEDS: ASPIRIN 81 MG CHEW (CHILDREN'S ASA) PO SCH (08:41)
[2020-03-21] MEDS: APIXABAN 5 MG (ELIQUIS) TABLET PO SCH ×2 (08:41→20:14)
[2020-03-21] MEDS ORDERED: FUROSEMIDE 40 MG/4 ML INJ (LASIX) IVP SCH (09:00)
--- NOTE | 2020-03-21 09:19 | History & Physical ---
JOSE MCKEON MED STUDENT 03/21/20 0919: HPI History of Present Illness: Ms. Janki Fallon is a 60 y/o female who presented to the ED on 03/20 with shortness of breath, swelling and pain in her legs to the level of her hips. She was recently discharged form the hospital on 03/09 for small bowel obstruction where she was found to be COVID+ and in HF with reduced ejection fraction of 10%. She states that since discharge she initially felt ok but has been getting progressively worse. She noted increasing swelling and shortness of breath that has been progressively getting worse until she presented on 03/20. She notes that she walks around her house for exercise but has been walking progressively less due to SOB. She reports similar feeling of shortness of breath prior to her last admission. She also reports nausea and vomiting on presentation that has since resolved. This morning she is feeling better, reporting improvements in her nausea, vomiting, and shortness of breath. Source: patient Date seen by provider: Mar 21, 2020 Time Seen by Provider: 09:35 Attending Physician Zainab Snow MD [facility] Consult Date of Admission Mar 20, 2020 at 16:30 Home Medications Home Medications Reviewed patient Home Medication Reconciliation performed by pharmacy medication reconciliations mobile sales technician and/or nursing. Patients Allergies have been reviewed. 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 hiatial hernia repair cholecystectomy Tubal ligation Tonsillectomy Family Medical History Significant Family History: Heart Disease Family History: Arthritis G8 SISTER son daughter Cardiovascular disease 19 FATHER Congenital heart disease Diabetes mellitus 19 MOTHER Headache disorder G8 SISTER son daughter Hypertension 19 MOTHER G8 SISTER Myocardial infarction 19 FATHER Neoplasm 19 FATHER 19 MOTHER Seizure disorder son Thyroid disease G8 SISTER Review of Systems (CHC) Constitutional: no symptoms reported, see HPI; No chills, No diaphoresis; dizziness; No fever; malaise, weakness, weight gain, weight loss, other EENTM: No blurred vision, No double vision, No vision loss Respiratory: No cough; dyspnea on exertion; No hemoptysis, No phlegm; short of breath; No stridor, No wheezing Cardiovascular: chest pain, edema; No palpitations, No syncope Gastrointestinal: abdominal pain; No constipation, No diarrhea, No hematemesis, No melena; nausea, vomiting Genitourinary: No dysuria, No frequency, No hematuria Musculoskeletal: see [facility] Physical Exam-(CHC) Physical Exam Vital Signs VS - Last 72 Hours, by Label 03/20/20 03/20/20 03/20/20 03/20/20 13:54 16:30 17:20 17:48 Temp 35.7 36.4 Pulse 113 111 111 Resp 22 19 22 B/P (MAP) 119/103 (108) 119/92 119/88 Pulse Ox 97 97 99 O2 Delivery Room Air Nasal Cannula Nasal Cannula Nasal Cannula O2 Flow Rate 2.00 2.00 2.00 2.00 03/20/20 03/20/20 03/20/20 03/20/20 18:00 19:00 19:00 20:45 Temp 36.3 Pulse 111 114 Resp 20 B/P (MAP) 125/91 (102) Pulse Ox 97 O2 Delivery Room Air Room Air Room Air 03/21/20 03/21/20 03/21/20 03/21/20 00:23 01:00 04:53 06:47 Temp 36.7 36.0 Pulse 111 110 114 113 Resp 18 22 B/P (MAP) 134/83 (100) 96/83 (87) Pulse Ox 99 96 O2 Delivery Room Air Room Air 03/21/20 03/21/20 03/21/20 03/21/20 08:00 08:00 12:00 12:51 Temp 36.0 35.8 Pulse 114 100 167 Resp 20 18 B/P (MAP) 137/87 (104) 140/80 (100) Pulse Ox 96 97 O2 Delivery Room Air Room Air Room Air Capillary Refill : Less Than 3 Seconds General Appearance: WD/WN, no apparent distress Eyes: Bilateral Eye Normal Inspection, Bilateral Eye PERRL, Bilateral Eye EOMI HEENT: PERRL/EOMI Respiratory: chest non-tender, lungs clear, normal breath sounds, no respiratory distress, no accessory muscle use; No crackles, No rales, No rhonchi, No stridor, No wheezing Cardiovascular: no gallop, no murmur, tachycardia Peripheral Pulses: 2+ Radial Pulses (R), 2+ Radial Pulses (L) Gastrointestinal: soft, no organomegaly, no pulsatile mass, tenderness (patient has mild abdominal tenderness in the midline abdominal area just below the zyphoid proscess ) Extremities: pedal edema, swelling (patient has pain associated with swelling and pressure on the leg) Skin: normal color, warm/dry Assessment/Plan Assessment/Plan Admission Dx Heart Failure Assessment & Plan Ms. Janki Fallon is a 60 y/o female who presented to the ED on 03/20 with shortness of breath and swelling in her legs. She has newly diagnosed heart failure with reduced ejection fraction. 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 (1) Heart failure Status: Acute Qualifiers: Qualified Codes: I50.9 - Heart failure, unspecified (2) Nausea & vomiting Status: Acute Qualifiers: (3) Nausea and vomiting Status: Acute Qualifiers: Qualified Codes: R11.2 - Nausea with vomiting, unspecified (4) CHF (congestive heart failure) Status: Acute Qualifiers: Clinical Quality Measures AMI/AHF: ASA po Prior to arrival: No DVT/VTE Risk/Contraindication: Risk Factor Score Per Nursin RFS Level Per Nursing on Admit: 4+=Very High ZAINAB SNOW MD 03/21/20 1414: Home Medications Allergies Coded Allergies: morphine (Unverified Allergy, Mild, 03/20/20) TRS-Brjehv-Qctciu Hx Family Medical History Family History: Arthritis G8 SISTER son daughter Cardiovascular disease 19 FATHER Congenital heart disease Diabetes mellitus 19 MOTHER Headache disorder G8 SISTER son daughter Hypertension 19 MOTHER G8 SISTER Myocardial infarction 19 FATHER Neoplasm 19 FATHER 19 MOTHER Seizure disorder son Thyroid disease G8 SISTER Assessment/Plan Assessment/Plan Admission Status: Observation Supervisory-Addendum Brief Verification & Attestation Participated in pt care: history, MDM, physical Personally performed: exam, history, MDM Care discussed with: Medical Student Procedures: n/a I personally saw and examined this patient today. I repeated the history and physical exam and agree with that documented by the medical student. I directed the plan of care as documented. JOSE MCKEON MED STUDENT Mar 21, 2020 09:19 ZAINAB SNOW MD Mar 21, 2020 14:14
--- NOTE | 2020-03-21 11:34 | Consultation-Cardiology ---
HPI-Cardiology Cardiology Consultation Date of Consultation 03/21/20 Date of Admission Time Seen by Provider: 11:24 Indication: Afib/Aflutter with acute exacerbation of CHF HPI Cardiology consulted for A-fib/A-flutter and acute exacerbation of CHF with history of reduced EF. Patient is a 60yo female that was admitted from the ED because of bilaterally LE edema and shortness of breath. She was recently admitted here from 03/05-03/09 for a SBO and was also diagnosed with COVID19 and told that she had CHF w/ reduced EF. Today patient says that she is feeling better and denies having any chest pain, palpitations, shortness of breath, cough, nausea, vomiting, or headache. She says that she is feeling less swollen today. Home Medications & Allergies Allergies: Coded Allergies: morphine (Unverified Allergy, Mild, 03/20/20) Home Medication List Reviewed: Yes home meds were reviewed [id number]-[id number]-Grumbs Hx Patient Social History Alcohol Use: Denies Use Recreational Drug Use: No Drug of Choice: THC IN PAST Smoking Status: Former Smoker Recent Foreign Travel: No Recent Infectious Disease Expo: No Recent Hopitalizations: Yes (03/05-03/09 at [facility] for SBO and COVID) Immunizations Up To Date Tetanus Booster (TDap): Unknown Past Medical History Tonsillectomy Thyroidectomy hiatial hernia repair cholecystectomy Tubal ligation Family Medical History Family History: 19 FATHER Cardiovascular disease Myocardial infarction Neoplasm 19 MOTHER Diabetes mellitus Hypertension Neoplasm G8 SISTER Arthritis Headache disorder Hypertension Thyroid disease son Arthritis Headache disorder Seizure disorder daughter Arthritis Headache disorder Relation not specified for: Congenital heart disease Review of Systems-General Review of Systems Constitutional: no symptoms reported, see HPI Respiratory: No cough; short of breath Cardiovascular: No chest pain; edema, Hx of Intervention (Hx of heart carth ); No palpitations, No syncope Gastrointestinal: no symptoms reported, see HPI Genitourinary: see HPI : No Musculoskeletal: no symptoms reported, see HPI Skin: see HPI, other (lesions bilat LEs) Psychiatric/Neurological: No Symptoms Reported, See HPI Reviewed Test Results Reviewed Test Results Lab Laboratory Tests Test 03/20/20 14:02 03/21/20 05:20 Range/Units White Blood Count 8.0 6.6 4.3-11.0 10^3/uL Red Blood Count 5.12 H 4.95 3.80-5.11 10^6/uL Hemoglobin 14.2 13.7 11.5-16.0 g/dL Hematocrit 47 45 35-52 % Mean Corpuscular Volume 91 92 80-99 fL Mean Corpuscular Hemoglobin 28 28 25-34 pg Mean Corpuscular Hemoglobin Concent 30 L 30 L 32-36 g/dL Red Cell Distribution Width 15.5 H 15.5 H 10.0-14.5 % Platelet Count 325 285 130-400 10^3/uL Mean Platelet Volume 9.8 10.0 9.0-12.2 fL Immature Granulocyte % (Auto) 0 0 % Neutrophils (%) (Auto) 61 53 42-75 % Lymphocytes (%) (Auto) 28 34 12-44 % Monocytes (%) (Auto) 10 12 0-12 % Eosinophils (%) (Auto) 1 2 0-10 % Basophils (%) (Auto) 0 1 0-10 % Neutrophils # (Auto) 4.8 3.5 1.8-7.8 10^3/uL Lymphocytes # (Auto) 2.2 2.2 1.0-4.0 10^3/uL Monocytes # (Auto) 0.8 0.8 0.0-1.0 10^3/uL Eosinophils # (Auto) 0.0 0.1 0.0-0.3 10^3/uL Basophils # (Auto) 0.0 0.0 0.0-0.1 10^3/uL Immature Granulocyte # (Auto) 0.0 0.0 0.0-0.1 10^3/uL Prothrombin Time 18.0 H 12.2-14.7 SEC INR Comment 1.4 0.8-1.4 Activated Partial Thromboplast Time 32 24-35 SEC D-Dimer 1.50 H 0.00-0.49 UG/ML Sodium Level 140 140 135-145 MMOL/L Potassium Level 4.6 4.8 3.6-5.0 MMOL/L Chloride Level 107 103 98-107 MMOL/L Carbon Dioxide Level 21 24 21-32 MMOL/L Anion Gap 12 13 5-14 MMOL/L Blood Urea Nitrogen 24 H 22 H 7-18 MG/DL Creatinine 1.17 1.19 0.60-1.30 MG/DL Estimat Glomerular Filtration Rate 47 46 BUN/Creatinine Ratio 21 18 Glucose Level 122 H 84 70-105 MG/DL Calcium Level 8.5 8.4 L 8.5-10.1 MG/DL Corrected Calcium 8.9 8.9 8.5-10.1 MG/DL Magnesium Level 2.3 1.6-2.4 MG/DL Total Bilirubin 0.9 1.2 H 0.1-1.0 MG/DL Aspartate Amino Transf (AST/SGOT) 36 H 30 5-34 U/L Alanine Aminotransferase (ALT/SGPT) 70 H 60 H 0-55 U/L Alkaline Phosphatase 104 90 40-136 U/L Myoglobin 48.2 10.0-92.0 NG/ML Troponin I < 0.028 <0.028 NG/ML B-Type Natriuretic Peptide 2566.1 H 1413.2 H <100.0 PG/ML Total Protein 6.2 L 5.6 L 6.4-8.2 GM/DL Albumin 3.5 3.4 3.2-4.5 GM/DL Physical Exam Physical Exam Vital Signs Vital Signs - First Documented 03/20/20 03/20/20 13:54 16:30 Temp 35.7 Pulse 113 Resp 22 B/P (MAP) 119/103 (108) Pulse Ox 97 O2 Delivery Room Air O2 Flow Rate 2.00 Capillary Refill : Less Than 3 Seconds Height, Weight, BMI Height: '" Weight: lbs. oz. kg; 37.18 BMI Method: General Appearance: WD/WN, Mild Distress HEENT: PERRL/EOMI, TMs Normal, Normal ENT Inspection, Pharynx Normal Neck: Full Range of Motion, Normal Inspection, Non Tender, Supple; No Carotid Bruit, No JVD, No Lymphadenopathy (L), No Lymphadenopathy (R) Respiratory: Chest Non Tender, Lungs Clear, Normal Breath Sounds, No Respiratory Distress Cardiovascular: No JVD, No Murmur, Normal Peripheral Pulses, Tachycardia Gastrointestinal: Normal Bowel Sounds, Non Tender, Soft Extremity: Normal Capillary Refill, Calf Tenderness (subjectively complains, secondary to being tight. No increased pain with Jonathan testing), Pedal Edema (2+ Pitting), Other (healing areas to bilat LEs, no erythema, warmth or induration, no active bleeding. Patient denies picking or itching sores. ) Neurologic/Psychiatric: Alert, Oriented x3, No Motor/Sensory Deficits, Normal Mood/Affect Skin: Normal Color, Warm/Dry; No Erythema A/P-Cardiology Admission Diagnosis CHF exacerbation with A-fib/A-flutter Assessment/Plan Congestive heart failure, acute on chronic left ventricular systolic dysfunction, nonischemic cardiomyopathy, ejection fraction 20 percent. Echocardiogram was repeated today showing subtle improvement, her EF is 25-30 percent. She is maintained on beta blockers and ESHA inhibitor. Continue on those medications and monitor. She was not on diuretic as an outpatient and re sponded well to aggressive diuresis. I will start her on low-dose Lasix and potassium to be used as an outpatient. Coronary artery disease, cardiac catheterization was carried out in February 2020 showing mild disease nonobstructive disease. Continue to monitor Paroxysmal atrial fibrillation/flutter, orderline tachycardic, overall rate is slightly better. I will restart metoprolol at a lower dose due to her hypotension. I am adding Cardizem 30 mg every 6 hours with parameters to evaluate her response. Monitor tolerance and response Peripheral edema, improved with diuretics. History of thyroidectomy, not maintained on replacement therapy, evaluate TSH Mildly elevated liver enzymes, probably passive hepatic congestion due to the heart failure improved after diuretics This is Dr. Martínez I have seen and evaluated the patient, perform physical examination and dihe management plan with the medical student. I made few minor modification using Italic font On examination lungs were clear to auscultation, had mild to moderate pitting edema Medication adjusted as described above Clinical Quality Measures AMI/AHF: ASA po Prior to arrival: No DVT/VTE Risk/Contraindication: Risk Factor Score Per Nursin RFS Level Per Nursing on Admit: 4+=Very High ALEX EPPS,MED STUDENT Mar 21, 2020 11:34 MARLEEN MARTÍNEZ MD Mar 21, 2020 13:15
[2020-03-21] MEDS ORDERED: FURO40TA4 PO (11:44)
[2020-03-21] MEDS ORDERED: POTA-51 PO (11:44)
[2020-03-21] MEDS ORDERED: FUROSEMIDE 40 MG/4 ML INJ (LASIX) IVP NR (13:15)
--- NOTE | 2020-03-21 13:31 | NUR ---
"RD ASSESSMENT PMHx: GERD; hiatal hernia; hypothyroidism; COVID-19; PT INTERACTION: Pt was awake and pleasant during nutrition assessment. Pt states current appetite is okay. Note avg PO intake 75% x2meal, per chart review. Pt states following a low-CHO, low-Na, low-fat diet at home, and has no issues with chewing/swallowing food. Pt states some recent issues with nausea, vomiting, and constipation, and that her last BM was 03/21. Note pt not currently on bowel regimen per chart review. Pt states some recent wt gain, but unsure of amount/timeframe. Note unable to determine recent wt hx, per chart review. ABNORMAL NUTRITION-RELATED LAB VALUES LOW: Ca 8.4; Pro 5.6; HIGH: BUN 22; bili 1.2; ALT 60; Est. kcal needs: 6127-0674 kcal | 15-18 kcal/kg Est. Pro needs: 78-98 g Pro | 0.8-1.0 g Pro/kg PES STATEMENT: Inadequate oral intake (NI-2.1) related to loss of appetite, nausea, vomiting, and constipation, as evidenced by pt interview. INTERVENTION: Continue with current diet order of Regular diet. Pt may benefit from nutrition supplementation if PO intake declines. Will continue to follow and reassess as pt needs, intake, and status change. Efren Santos MS RD LD [phone] cell"
[2020-03-21] MEDS: lisINopril 10 MG (PRINIVIL) TABLET PO SCH (13:39)
[2020-03-21] MEDS: meTOprolol TARTRATE 25 MG (LOPRESSOR) TABLET PO SCH (20:14)
[2020-03-22 00:08] VITALS: BP 115/78
[2020-03-22 04:05] VITALS: BP 125/86
[2020-03-22 05:58] LABS: HEMOGLOBIN 13.7 g/dL (11.5-16.0); MEAN PLATELET VOLUME 9.9 fL (9.0-12.2); WHITE BLOOD COUNT 5.9 10^3/uL (4.3-11.0)
[2020-03-22 06:03] LABS: ALBUMIN 3.3 GM/DL (3.2-4.5); POTASSIUM 4.1 MMOL/L (3.6-5.0)
[2020-03-22 06:05] LABS: CALCIUM 8.3 MG/DL (8.5-10.1)
[2020-03-22 06:06] LABS: TOTAL PROTEIN 5.4 GM/DL (6.4-8.2)
[2020-03-22 06:08] LABS: BILIRUBIN,TOTAL 0.9 MG/DL (0.1-1.0)
[2020-03-22 06:09] LABS: CREATININE SERUM 1.1 MG/DL (0.60-1.30)
[2020-03-22] MEDS ORDERED: KCL 10 MEQ TAB (MICRO K) PO SCH (07:00)
--- NOTE | 2020-03-22 07:36 | Cardiology Progress Note ---
Cardiology Progess Note Progress Date Seen by Provider: Mar 22, 2020 Time Seen by Provider: 07:26 Patient seen and examined. She reports that she is feeling better and that the swelling in her legs is getting better. She denies having any nausea, vomiting, headache, chest pain, palpitations, shortness of breath, or cough. Patient was curious about dietary and fluid intake recommendations related to CHF. Focused Exam Respiratory: Chest Non Tender, Lungs Clear, Normal Breath Sounds, No Accessory Muscle Use, No Respiratory Distress Cardiovascular: Tachycardia, Other (+2 bilateral lower extremity pitting edema to the knee ) Peripheral Pulses: 2+ Radial Pulses (R), 2+ Radial Pulses (L) Skin: normal color, warm/dry A/P-Cardiology Assessment/Plan Plan Congestive heart failure, acute on chronic left ventricular systolic dysfunction, nonischemic cardiomyopathy, ejection fraction 20 percent. Echocardiogram was repeated today showing subtle improvement, her EF is 25-30 percent. She is maintained on beta blockers and ESHA inhibitor. Continue on those medications and monitor. I will start her on low-dose Lasix and potassium to be used as an outpatient. Coronary artery disease, cardiac catheterization was carried out in February 2020 showing mild disease nonobstructive disease. Continue to monitor Paroxysmal atrial fibrillation/flutter, borderline tachycardic, overall rate is slightly better. Metoprolol 25mg BID and Cardizem 30mg Q 6hrs PO was started yesterday, patient is still tachycardiac in the 110's. Cardizem was changed to 2 40mg QD Peripheral edema, improved with diuretics. History of thyroidectomy, not maintained on replacement therapy, evaluate TSH Mildly elevated liver enzymes, probably passive hepatic congestion due to the heart failure improved after diuretics. Liver enzymes have normalized today. This is Dr. Martínez, I have seen and evaluated the patient with the medical student, I performed a physical examination and obtained historyand reviewed the records Agree with the current note, I made few modifications using Italic font Okay for discharge and arrange for follow-up as an outpatient Clinical Quality Measures AMI/AHF: ASA po Prior to arrival: No DVT/VTE Risk/Contraindication: Risk Factor Score Per Nursin RFS Level Per Nursing on Admit: 4+=Very High ALEX EPPS,MED STUDENT Mar 22, 2020 07:36 MARLEEN MARTÍNEZ MD Mar 22, 2020 11:56
[2020-03-22 08:00] VITALS: BP 119/69
[2020-03-22] MEDS: lisINopril 10 MG (PRINIVIL) TABLET PO SCH (08:22)
[2020-03-22] MEDS: meTOprolol TARTRATE 25 MG (LOPRESSOR) TABLET PO SCH (08:22)
[2020-03-22] MEDS: ASPIRIN 81 MG CHEW (CHILDREN'S ASA) PO SCH (08:22)
[2020-03-22] MEDS: APIXABAN 5 MG (ELIQUIS) TABLET PO SCH (08:22)
[2020-03-22] MEDS ORDERED: FUROSEMIDE 20 MG (LASIX) TAB PO SCH (09:00)
[2020-03-22] MEDS ORDERED: DILT240C91 PO (09:51)
[2020-03-22] MEDS ORDERED: FURO20TA4 PO (09:52)
--- NOTE | 2020-03-22 09:57 | Discharge Summary ---
Discharge Inst-[facility] Discharge Medications New, Converted or Re-Newed RX: Transmitted to Pharmacy New Medications: Furosemide (Furosemide) 20 Mg Tablet 20 MG PO DAILY, #30 TAB 0 Refills Potassium Chloride (Potassium Chloride) 20 Meq Tablet.er 20 MEQ PO DAILY, #30 TAB 0 Refills Diltiazem HCl (Diltiazem 24Hr ER) 240 Mg Cap.er.24h 240 MG PO DAILY, #30 CAP 0 Refills Continued Medications: Acetaminophen (Tylenol Extra Strength) 500 Mg Tablet 1000 MG PO Q8H PRN for PAIN-MILD (1-4), TAB Apixaban (Eliquis) 5 Mg Tablet 5 MG PO BID, #60 TAB Esomeprazole Magnesium (Nexium 24Hr) 20 Mg Capsule.dr 20 MG PO DAILY, CAP Lisinopril (Lisinopril) 10 Mg Tablet 10 MG PO DAILY@0900, #60 TAB Metoprolol Tartrate (Metoprolol Tartrate) 50 Mg Tablet 50 MG PO BID, #60 TAB Ondansetron (Ondansetron Odt) 8 Mg Tab.rapdis 8 MG PO Q6H, #20 TAB Sucralfate (Carafate) 1 Gm Tablet 1 GM PO ACHS PRN for stomach acid, #60 TAB Patient Instructions Goal/Follow Up Appt: Follow up with Dr. Martínez as directed. Follow up at [facility] on 03/28 at 1:20 with Nirmala Hussein. Return to The Hospital For: Worsening shortness of breath, chest pain Activity & Diet Discharge Diet: Cardiac Diet Activity as Tolerated: Yes Orders-Post D/C & Referrals Pneu Vac Indicated: Yes ZAINAB LAMODOVAR MD Mar 22, 2020 09:56
--- NOTE | 2020-03-22 11:26 | Discharge Summary ---
JOSE MCKEON MED STUDENT 03/22/20 1112: Discharge Summary Hospital Course Problems/Diagnosis: (1) CHF (congestive heart failure) Status: Acute Qualifiers: Qualified Codes: I50.21 - Acute systolic (congestive) heart failure (2) Heart failure Status: Acute Qualifiers: Qualified Codes: I50.9 - Heart failure, unspecified (3) Nausea & vomiting Status: Acute Qualifiers: Hospital Course Date of Admission: Mar 20, 2020 at 16:30 Admission Diagnosis : Family Physician/Provider: [place] Date of Discharge: 03/22/20 Discharge Diagnosis: [ Acute heart failure with reduced ejection fraction ] Hospital Course: [ Ms. Janki Fallon is a 60 y/o female who presented to the ED on 03/20 for SOB, swelling, leg pain, and nausea/vomiting. She was recently discharge from the hospital for a small bowel obstruction at which time she was diagnosed with heart failure with reduced ejection fraction. She presented with volume overload with a BNP of 2566.1 on presentation. She was subsequently diuresed using furosemide. 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 Her Eco showed EF of 25-30% and BNP was downtrending at 1413.2 on day 2 of hospital course. ] Labs and Pending Lab Test: Laboratory Tests 03/22/20 05:17: White Blood Count 5.9, Red Blood Count 4.94, Hemoglobin 13.7, Hematocrit 44, Mean Corpuscular Volume 90, Mean Corpuscular Hemoglobin 28, Mean Corpuscular Hemoglobin Concent 31L, Red Cell Distribution Width 15.3H, Platelet Count 284, Mean Platelet Volume 9.9, Sodium Level 141, Potassium Level 4.1, Chloride Level 101, Carbon Dioxide Level 27, Anion Gap 13, Blood Urea Nitrogen 23H, Creatinine 1.10, Estimat Glomerular Filtration Rate 51, BUN/Creatinine Ratio 21, Glucose Level 92, Calcium Level 8.3L, Corrected Calcium 8.9, Total Bilirubin 0.9, Aspartate Amino Transf (AST/SGOT) 22, Alanine Aminotransferase (ALT/SGPT) 49, Alkaline Phosphatase 79, Total Protein 5.4L, Albumin 3.3, Thyroid Stimulating Hormone (TSH) 3.15 Home Meds Active Furosemide 20 Mg Tablet 20 Mg PO DAILY Diltiazem 24Hr ER (Diltiazem HCl) 240 Mg Cap.er.24h 240 Mg PO DAILY Potassium Chloride 20 Meq Tablet.er 20 Meq PO DAILY Ondansetron Odt (Ondansetron) 8 Mg Tab.rapdis 8 Mg PO Q6H Lisinopril 10 Mg Tablet 10 Mg PO DAILY@0900 Metoprolol Tartrate 50 Mg Tablet 50 Mg PO BID Eliquis (Apixaban) 5 Mg Tablet 5 Mg PO BID Carafate (Sucralfate) 1 Gm Tablet 1 Gm PO ACHS PRN Reported Nexium 24Hr (Esomeprazole Magnesium) 20 Mg Capsule.dr 20 Mg PO DAILY Tylenol Extra Strength (Acetaminophen) 500 Mg Tablet 1,000 Mg PO Q8H PRN Discharge Diet: Cardiac Diet Activity as Tolerated: Yes Orders-Post D/C & Referrals Heart failure with reduced ejection fraction- acute systolic heart failure likely secondary to volume overload. 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 Martínez as directed. - Follow up at [facility] on 03/28 at 1:20 with Nirmala Hussein. Pneu Vac Indicated: Yes Discharge Physical Examination Allergies: Coded Allergies: morphine (Unverified Allergy, Mild, 03/20/20) General Appearance: No Apparent Distress, WD/WN, Obese HEENT: PERRL/EOMI Respiratory: Chest Non Tender, Lungs Clear, Normal Breath Sounds, No Accessory Muscle Use, No Respiratory Distress Cardiovascular: No Gallop, No JVD, No Murmur, Normal Peripheral Pulses, Tachycardia, Other (patient has 1+ pretibial edema) Extremity: Normal Capillary Refill, Normal Inspection, Non Tender, No Calf Tenderness Skin: Normal Color, Warm/Dry Neurologic/Psychiatric: Alert, Oriented x3, Normal Mood/Affect Discharge Summary Date of Admission Mar 20, 2020 at 16:30 Date of Discharge Discharge Date: Mar 21, 2020 Clinical Quality Measures AMI/AHF: ASA po Prior to arrival: No DVT/VTE Risk/Contraindication: Risk Factor Score Per Nursin RFS Level Per Nursing on Admit: 4+=Very High ZAINAB ALMODOVAR MD 03/22/20 1239: Discharge Summary Hospital Course Assessment/Pt DC Instructions Follow up with Nirmala Hussein as noted. Discharge Physical Examination Allergies: Coded Allergies: morphine (Unverified Allergy, Mild, 03/20/20) Supervisory-Addendum Brief Verification & Attestation Participated in pt care: history, MDM, physical Personally performed: exam, history, MDM Care discussed with: Medical Student Procedures: n/a I personally saw and examined this patient today and did my own history and exam which are in agreement with that documented by the medical student. JOSE MCKEON MED STUDENT Mar 22, 2020 11:12 ZAINAB ALMODOVAR MD Mar 22, 2020 12:39
--- NOTE | 2020-03-22 11:27 | NUR ---
CM/SS: Visited with pt as per her plan for discharge as well as follow up on the status of her life vest. Plan: Pt to return home with daughter and will have life vest fitted once all of the paperwork has been submitted. Pt/Family did not follow up on the process to get the Life Vest after previous discharge from hospital. Summary: Pt reports she is feeling better than she did on Saturday. Pt is asked the status as to the life vest. She reports she will be getting it today, she thinks, but she is unsure as to where she goes and when she is to get it. This worker follows up with [employer]. Telephone call to Aaliyah - [phone] - She reports that pt has not gotten her life vest, due to not being able to reach daughter and they have not received the paperwork back yet. She reports finally calling the production assembly supervisor to get working phone numbers for patient and family members. She is still needing the paperwork and the deposit of $250.00. Pt is informed of this and calls the daughter to let her know the update and that it will need to be completed before she can get her vest. Pt request to talk with [employer]. Aaliyah Kent [phone] is called - message left. Aaliyahsona Gomeschristina returned call and is able to speak to the pt as to the process. Pt dose not have any questions. This worker will meet with pt's daughter upon her arrival to the hospital to get the [employer] application completed and faxed it.
--- NOTE | 2020-03-22 12:40 | NUR ---
CM/SS: Met with daughter (Krystian) when she came to supervisor picking crew pt at discharge. She was able to provide the rest of the information for [employer] application as well as her hand written letter of support. She did not mention the deposit of the $250.00. She does have this workers contact information should she have questions. She is also given a copy of the application with the phone number to [employer].
--- NOTE | 2020-03-22 12:43 | NUR ---
CM/SS: Completed [employer] Application is faxed to [employer] at [phone].
== END 2020-03-22 12:10 | disposition home or self-care (01) ==
LOC: EDUNIT# 13:32 → ER 13:33 → 4TH 16:30
PROVIDERS: ADMIT Internal Medicine; ATTEND Family Medicine
DX: I48.4 Atypical atrial flutter (principal); I50.9 Heart failure, unspecified; R11.2 Nausea with vomiting, unspecified; J45.909 Unspecified asthma, uncomplicated; K21.9 Gastro-esophageal reflux disease without esophagitis; K44.9 Diaphragmatic hernia without obstruction or gangrene; E03.9 Hypothyroidism, unspecified; M19.90 Unspecified osteoarthritis, unspecified site; I08.1 Rheumatic disorders of both mitral and tricuspid valves; Z79.01 Long term (current) use of anticoagulants; Z88.5 Allergy status to narcotic agent; Z87.891 Personal history of nicotine dependence; Z90.49 Acquired absence of other specified parts of digestive tract; Z83.3 Family history of diabetes mellitus
CPT/HCPCS: 71045; 80053 ×3; 83735; 83874; 83880 ×2; 84443; 84484; 85025 ×2; 85027; 85379; 85610; 85730; 93005; 93041; 93306; 99284; G0378; 36415

== ENCOUNTER → 2020-04-18 | Outpatient (CLI) | payer MEDICAID ==
[~2020-04-18] MED LIST changes: +DILT240C91 PO; +FURO20TA4 PO; +FURO40TA4 PO; +POTA-51 PO
== END ==
LOC: CARD 14:30
PROVIDERS: ATTEND Internal Medicine Cardiovascular Disease
DX: I50.9 Heart failure, unspecified (principal); I51.7 Cardiomegaly; I36.1 Nonrheumatic tricuspid (valve) insufficiency
CPT/HCPCS: 93306

== ENCOUNTER 2020-07-25 10:30 | Outpatient (CLI) | payer MEDICAID ==
[~2020-07-25] VITALS: Ht 158.8 cm; Wt 90.6 kg
[~2020-07-25 10:30] MED LIST changes: -LISI10TA2 PO; +LISI10TA25 PO
[2020-07-25] MEDS ORDERED: FURO20TA4 PO (11:16)
[2020-07-25] MEDS ORDERED: DILT120C88 PO (11:16)
[2020-07-25] MEDS ORDERED: APIX5TAB PO (11:16)
[2020-07-25] MEDS ORDERED: METO50TA15 PO (11:16)
[2020-07-25] MEDS ORDERED: LISI10TA25 PO (11:16)
== END 2020-07-25 11:32 | disposition home or self-care (01) ==
LOC: PREOP 10:30
PROVIDERS: ATTEND Surgery
DX: Z01.818 Encounter for other preprocedural examination (principal)

== ENCOUNTER 2020-07-28 07:42 | Day surgery (SDC) | payer MEDICAID ==
[~2020-07-28] VITALS: Ht 158.8 cm; Wt 90.6 kg
[2020-07-28] VITALS (12 sets, daily range): BP systolic 128–192; BP diastolic 56–78
[~2020-07-28 07:42] MED LIST changes: +DILT120C88 PO
[2020-07-28] MEDS ORDERED: ceFAZolin 2 GM IV Premixed 50 ML ONE (07:52)
[2020-07-28] MEDS ORDERED: ceFAZolin 2 GM IV Premixed 50 ML IV ONE (08:00)
--- NOTE | 2020-07-28 08:06 | Progress Note-Pre Operative ---
Pre-Operative Progress Note H&P Reviewed The H&P was reviewed, patient examined and no changes noted. Date Seen by Provider: Jul 28, 2020 Time Seen by Provider: 08:06 Date H&P Reviewed: Jul 28, 2020 Time H&P Reviewed: 08:06 Pre-Operative Diagnosis: incisional hernia RICH HARRINGTON DO Jul 28, 2020 08:06
[2020-07-28 08:18] LABS: BASOPHILS % (AUTO) 1 % (0-10); EOSINOPHILS # (AUTO) 0.2 10^3/uL (0.0-0.3); EOSINOPHILS % (AUTO) 3 % (0-10); HEMATOCRIT 45 % (35-52); HEMOGLOBIN 14.8 g/dL (11.5-16.0); LYMPHOCYTES # (AUTO) 2.5 10^3/uL (1.0-4.0); LYMPHOCYTES % (AUTO) 36 % (12-44); MEAN CORPUSCULAR HEMOGLOBIN 31 pg (25-34); MEAN CORPUSCULAR HGB CONC 33 g/dL (32-36); MEAN CORPUSCULAR VOLUME 94 fL (80-99); MEAN PLATELET VOLUME 9.9 fL (9.0-12.2); MONOCYTES # (AUTO) 0.4 10^3/uL (0.0-1.0); MONOCYTES % (AUTO) 6 % (0-12); NEUTROPHILS # (AUTO) 3.8 10^3/uL (1.8-7.8); NEUTROPHILS % (AUTO) 55 % (42-75); PLATELET COUNT 257 10^3/uL (130-400)
[2020-07-28] MEDS ORDERED: LIDOCAINE/EPI 1%-1:100,000 (XYLOCAINE) 20ML ONE (08:18)
[2020-07-28 08:28] LABS: CHLORIDE 105 MMOL/L (98-107); POTASSIUM 3.7 MMOL/L (3.6-5.0); SODIUM 140 MMOL/L (135-145)
[2020-07-28 08:30] LABS: CALCIUM 9.1 MG/DL (8.5-10.1); GLUCOSE 92 MG/DL (70-105)
[2020-07-28] MEDS ORDERED: MIDAZOLAM 2 MG/2 ML (VERSED) VIAL ONE (08:30)
[2020-07-28] MEDS ORDERED: proPOfol 200 MG/20 ML (DIPRIVAN) VIAL IV ONE (08:30)
[2020-07-28] MEDS ORDERED: ROCURONIUM 10 MG/ML 5 ML SYRINGE IV ONE (08:30)
[2020-07-28] MEDS ORDERED: ONDANSETRON 4 MG/2 ML (SDV) Z0FRAN ONE (08:30)
[2020-07-28] MEDS ORDERED: fentaNYL INJ 100 MCG/2 ML AMP ONE ×2 (08:30→10:42)
[2020-07-28 08:32] LABS: CARBON DIOXIDE 25 MMOL/L (21-32)
[2020-07-28 08:34] LABS: GFR ESTIMATED > 60
[2020-07-28 08:35] LABS: BUN/CREATININE RATIO 16
[2020-07-28] MEDS ORDERED: FAMOTIDINE 20MG/2ML IV (PEPCID) IV ONE (08:45)
[2020-07-28] MEDS ORDERED: ONDANSETRON 4 MG/2 ML (SDV) Z0FRAN IV ONE (08:45)
[2020-07-28] MEDS: LACTATED RINGERS 1,000 ML IV PRN ×2 (08:45→09:56)
[2020-07-28] MEDS ORDERED: GLYCOPYRROLATE 0.2 MG/ML (ROBINUL) 2 ML VIAL ONE ×2 (09:27→10:05)
[2020-07-28] MEDS ORDERED: SEVOFLURANE (ULTANE) 15 ML INHAL SOLN ONE ×2 (10:05→10:14)
[2020-07-28] MEDS ORDERED: NEOSTIGMINE 3 MG/3 ML VIAL ONE (10:05)
--- NOTE | 2020-07-28 10:29 | Progress Note-Post Operative ---
Post-Operative Progess Note Surgeon (s)/Shot Grinder Operator (s) Surgeon RICH HARRINGTON DO Shot Grinder Operator: Dr. Martinez to assist in retraction dissection and closure Pre-Operative Diagnosis incisional hernia Post-Operative Diagnosis incarcerated incisional hernia x2 incarcerated umbilical hernia Procedure & Operative Findings Date of Procedure 07/28/20 Procedure Performed/Findings PROCEDURE: Laparoscopic incarcerated incisional hernia x 2 and incarcerated umbilical hernia repair with mesh. COMPLICATIONS: None. INDICATIONS: The patient is a 60, female with an incisional hernia, which has continued to increase in size and cause discomfort. The patient was explained the risk and benefits of the procedure and wished to proceed with the procedure. Consent was signed on the chart. DESCRIPTION OF PROCEDURE: The patient was taken into the operating suite, prepped and draped in sterile fashion. Surgical pause was performed. Local anesthetic was infiltrated in left upper quadrant. A 15 blade scalpel was used to make a small skin incision. Cautery was used to dissect down to the fascia, which was then scored and divided the muscle, went through the posterior sheath and a balloon trocar was inserted into the abdomen. The abdomen was then insufflated. Incarcerated right upper quadrant incisional hernia, incarcerated ventral incisional hernia and incarcerated umbilical hernia. A 5 mm trocar was placed in the right lower quadrant and a 5 mm trocar was placed in left lower quadrant. 4 inch Echo Ventralight mesh was then inserted in the abdomen grabbed through the stab incision in right upper quadrant. The balloon was inflated on the mesh. Circumferential tacks were placed with a SecureStrap Tacker. The balloon was then removed and inner crown was created as well. The mesh was tacked with pressure being decreased. 4x6 inch Echo Ventralight mesh was then inserted in the abdomen grabbed through the stab incision in midline. The balloon was inflated on the mesh. This covered the umbilical and midline incisonal defect. Circumferential tacks were placed with a SecureStrap Tacker. The balloon was then removed and inner crown was created as well. The mesh was tacked with pressure being decreased. The 12 mm fascial defect was then closed using 0 Vicryl. The abdomen was then desufflated,the trocars were removed. The skin was then closed using 4-0 Monocryl in a running subcuticular fashion. The abdomen was washed and dried and Skin Affix was placed over the incisions. The patient tolerated procedure well without any complications. She was taken to recovery room in stable condition. Anesthesia Type general Estimated Blood Loss Estimated blood loss (mL): minimal Specimens/Packing Specimens Removed na RICH HARRINGTON DO Jul 28, 2020 10:28
[2020-07-28] MEDS ORDERED: DOCU-143 PO (10:33)
[2020-07-28] MEDS ORDERED: ACHD5005 PO (10:33)
--- NOTE | 2020-07-28 10:34 | Discharge Inst-Simple/Standard ---
Discharge Inst-Standard Discharge Medications New, Converted or Re-Newed RX: RX on Chart Patient Instructions/Follow Up Plan of Care/Instructions/FU: 3 weeks Valdo Activity as Tolerated: No Discharge Diet: Regular Diet Other Inst to Patient Follow up Appt: Make appointment for 3 week. Instructions: No lifting greater than 10 pounds. No strenuous activity. May shower in 24 hours, no tub bath or soaking. Use incentive spirometer at home as directed. No Smoking Skin/Wound Care: You have special glue over your incision that will fall off on it's own. Symptoms to Report: Appetite Changes, Extremity Discoloration, Numbness/Tingling, Swelling Increased, Bleeding Excessive, Eyesight Changes, Pain Increased, Urine Color Change, Constipation(Persistent), Fever over 101 degree F, Pain/Pressure in chest, Urinating Difficulty, Cough Up/Vomit Blood, Heart Beat Irreg/Pounding, Pain/Pressure in jaw, Vaginal Bleeding Increase, Cramps in feet or legs, Lightheadedness, Pain/Pressure in shoulder, Diarrhea(Persistent), Memory Changes Suddenly, Questions/Concerns, Weight gain consecutive days, Dizziness/Fainting, Nausea/Vomiting, Shortness of Breath, Weight gain over 2 pounds If questions or concerns contact your physician Or seek help at emergency department. RICH HARRINGTON DO Jul 28, 2020 10:34
[2020-07-28] MEDS ORDERED: MEPERIDINE (DEMEROL) INJ 50 MG/ML IVP ONE (10:45)
[2020-07-28] MEDS ORDERED: fentaNYL INJ 100 MCG/2 ML AMP IVP ONE (10:45)
[2020-07-28] MEDS ORDERED: ONDANSETRON 4 MG/2 ML (SDV) Z0FRAN IVP PRN (10:45)
--- NOTE | 2020-07-28 11:14 | Anesthesia-General Post-Op ---
General Patient Condition Mental Status/LOC: Same as Preop Cardiovascular: Satisfactory Nausea/Vomiting: Absent Respiratory: Satisfactory Pain: Controlled Complications: Absent Post Op Complications Complications None Follow Up Care/Instructions Patient Instructions None needed. Anesthesia/Patient Condition Patient Condition Patient is doing well, no complaints, stable vital signs, no apparent adverse anesthesia problems. No complications reported per nursing. NITIN LOVING CRNA Jul 28, 2020 11:14
[2020-07-28] MEDS ORDERED: HYDROcodone/APAP 5 MG/325 MG (LORTAB) TAB ONE (12:31)
[2020-07-28] MEDS ORDERED: HYDROcodone/APAP 5 MG/325 MG (LORTAB) TAB PO ONE (12:45)
== END 2020-07-28 14:05 | disposition home or self-care (01) ==
LOC: SDC 07:42
PROVIDERS: ATTEND Surgery
DX: K43.0 Incisional hernia with obstruction, without gangrene (principal); K42.0 Umbilical hernia with obstruction, without gangrene; J45.909 Unspecified asthma, uncomplicated; I48.91 Unspecified atrial fibrillation; R51.9 Headache, unspecified; I50.9 Heart failure, unspecified; M19.90 Unspecified osteoarthritis, unspecified site; R03.0 Elevated blood-pressure reading, without diagnosis of hypertension; K44.9 Diaphragmatic hernia without obstruction or gangrene; K21.9 Gastro-esophageal reflux disease without esophagitis; Z87.891 Personal history of nicotine dependence; Z90.89 Acquired absence of other organs; Z90.49 Acquired absence of other specified parts of digestive tract; Z88.5 Allergy status to narcotic agent; Z79.01 Long term (current) use of anticoagulants; Z98.890 Other specified postprocedural states; Z86.73 Personal history of transient ischemic attack (TIA), and cerebral infarction without residual deficits; Z79.899 Other long term (current) drug therapy
CPT/HCPCS: 49653; 49655; 80048; 85025; 87081; C1781 ×2; 36415

== ENCOUNTER → 2020-08-29 | Outpatient (CLI) | payer OTHER ==
[~2020-08-29] MED LIST changes: +ACHD5005 PO; +DOCU-143 PO
--- NOTE | 2020-08-29 12:44 | Diagnostic Imaging Report ---
INDICATION: Graves' disease and arthritis of the right knee. TIME OF EXAM: 11:11 AM 2 views right knee were obtained. FINDINGS: Alignment is normal. Joint spaces are well-maintained. The articular surfaces are smooth. No fracture, dislocation or effusion is seen. IMPRESSION: No acute abnormality is detected. Dictated by: Dictated on workstation # [id number]
--- NOTE | 2020-08-29 12:50 | Diagnostic Imaging Report ---
INDICATION: Arthritis. Time of exam 11:08 AM AP view the pelvis and 2 views of the right hip were obtained. Femoral acetabular alignment is normal bilaterally. The joint spaces are well-maintained. The femoral heads and necks appear to be intact. Rami are intact. No fractures are seen. IMPRESSION: No acute bony abnormality is detected. Dictated by: Dictated on workstation # [id number]
== END ==
LOC: RAD 10:05
PROVIDERS: ATTEND Anesthesiology Pain Medicine
DX: Z02.71 Encounter for disability determination (principal); M17.11 Unilateral primary osteoarthritis, right knee; M16.11 Unilateral primary osteoarthritis, right hip; E05.00 Thyrotoxicosis with diffuse goiter without thyrotoxic crisis or storm
CPT/HCPCS: 73560

== ENCOUNTER → 2020-10-27 | Outpatient (CLI) | payer MEDICAID ==
[2020-10-27 10:08] LABS: HEMATOCRIT 44 % (35-52); HEMOGLOBIN 14.7 g/dL (11.5-16.0); MEAN CORPUSCULAR HEMOGLOBIN 31 pg (25-34); MEAN CORPUSCULAR HGB CONC 33 g/dL (32-36); MEAN CORPUSCULAR VOLUME 92 fL (80-99); MEAN PLATELET VOLUME 9.4 fL (9.0-12.2); PLATELET COUNT 259 10^3/uL (130-400); WHITE BLOOD COUNT 6.3 10^3/uL (4.3-11.0)
[2020-10-27 10:26] LABS: BUN/CREATININE RATIO 14; CALCIUM 9.2 MG/DL (8.5-10.1); CARBON DIOXIDE 24 MMOL/L (21-32); CHLORIDE 106 MMOL/L (98-107); CHOLESTEROL 183 MG/DL (< 200); CREATININE SERUM 0.92 MG/DL (0.60-1.30); GFR ESTIMATED > 60; GLUCOSE 86 MG/DL (70-105); HDL CHOLESTEROL 38 MG/DL (40-60); SODIUM 139 MMOL/L (135-145); TRIGLYCERIDES 237 MG/DL (<150); VLDL CHOLESTEROL 47 MG/DL (5-40)
== END ==
LOC: CARD 11:00
PROVIDERS: ATTEND Internal Medicine Cardiovascular Disease
DX: R00.1 Bradycardia, unspecified (principal)
CPT/HCPCS: 36415; 80048; 80061; 84443; 85027; 93225; 93226

== ENCOUNTER 2020-11-15 20:25 | Emergency (ER) | payer MEDICAID ==
[~2020-11-15] VITALS: Ht 160 cm; Wt 98.1 kg
[2020-11-15] MEDS ORDERED: ASPIRIN 81 MG CHEW (CHILDREN'S ASA) PO ONE (20:45)
[2020-11-15] MEDS: NITROGLYCERIN 0.4 MG SL TABS BTL 25'S SL PRN ×3 (20:53→21:07)
--- NOTE | 2020-11-15 20:53 | ED Chest Pain ---
General Chief Complaint: Chest Pain Stated Complaint: CHEST TIGHTNESS, DIZZINESS Source: patient Exam Limitations: no limitations (RUFINA SIMON APRN) History of Present Illness Date Seen by Provider: Nov 15, 2020 Time Seen by Provider: 20:50 Initial Comments to ER with chest tightness that began around 530 this evening. Minimal shortness of breath. States that she follows with Dr. Martínez and due to some dizziness with a heart rate as low as 30s at times her metoprolol tartrate 50 mg twice a day was stopped yesterday. Today at around 530 she developed some recurrent dizziness chest tightness and lightheadedness. Decided to come to the emergency room. She did have a cardiac catheterization in February 2020 without intervention. She also takes lisinopril and Lasix. History of nonischemic cardiomyopathy with reduced ejection fraction of 40 to 45% on her most recent echocardiogram in April of this year. Her most recent cardiac catheterization in February 2020 showed mild coronary disease. Timing/Duration: changing over time Severity/Quality: moderate Location: other Radiation: no radiation Activities at Onset: none ASA po [employer]GING [employer]IT[employer] ATTENDANT: No NTG SL [employer] ATTENDANT: No Associated Symptoms: denies symptoms (RUFINA SIMON APRN) Allergies and Home Medications Allergies Coded Allergies: morphine (Unverified Allergy, Mild, 03/20/20) Home Medications Acetaminophen 500 Mg Tablet, 1,000 MG PO Q8H PRN for PAIN-MILD (1-4), (Reported) Apixaban 5 Mg Tablet, 5 MG PO BID, (Reported) Diltiazem HCl 120 Mg Cap.er.24h, 120 MG PO DAILY, (Reported) Docusate Sodium 100 Mg Capsule, 100 MG PO BID Prescribed by: RICH HARRINGTON on 07/28/20 1033 Esomeprazole Magnesium 20 Mg Capsule.dr, 20 MG PO DAILY, (Reported) Furosemide 20 Mg Tablet, 20 MG PO DAILY, (Reported) Hydrocodone/Acetaminophen 1 Each Tablet, 1 EACH PO Q4H PRN for PAIN-MODERATE (5- 7) Prescribed by: RICH HARRINGTON on 07/28/20 1033 Lisinopril 10 Mg Tablet, 10 MG PO DAILY, (Reported) Metoprolol Tartrate 50 Mg Tablet, 50 MG PO BID, (Reported) Patient Home Medication List Home Medication List Reviewed: Yes (RUFINA SIMON APRN) Review of Systems Review of Systems Constitutional: see HPI EENTM: No Symptoms Reported Respiratory: No Symptoms Reported Cardiovascular: See HPI, Chest Pain Gastrointestinal: No Symptoms Reported Genitourinary: No Symptoms Reported Musculoskeletal: no symptoms reported Skin: no symptoms reported Psychiatric/Neurological: No Symptoms Reported Endocrine: No Symptoms Reported Hematologic/Lymphatic: No Symptoms Reported (RUFINA SIMON APRN) Past Rwmcfgo-Bsbuzp-Xodmgz Hx Immunizations Up To Date Tetanus Booster (TDap): Unknown PED Vaccines UTD: Yes (RUFINA SIMON APRN) Seasonal Allergies Seasonal Allergies: Yes (RUFINA SIMON APRN) Past Medical History Surgeries: Yes (OPEN CHOLECYSTECTOMY; HIATAL HERNIA REPAIR) Abdominal, Section, Gallbladder, Thyroidectomy, Tonsillectomy Respiratory: Yes Asthma, Chronic Bronchitis Currently Using CPAP: No Currently Using BIPAP: No Cardiac: Yes (BRADYCARDIA, CHF) Atrial Fibrillation, Palpitations Neurological: Yes Headaches /Migraines, TIA 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 HAND History: Menopausal Genitourinary: No Gastrointestinal: Yes Gastroesophageal Reflux, Hiatal Hernia Musculoskeletal: Yes Arthritis Endocrine: Yes (hx thyoidectomy) Hypothyroidsim HEENT: No Cancer: No Psychosocial: Yes Depression Integumentary: No Blood Disorders: No (RUFINA SIMON APRN) Family Medical History Arthritis G8 SISTER son daughter Cardiovascular disease 19 FATHER Congenital heart disease Diabetes mellitus 19 MOTHER Headache disorder G8 SISTER son daughter Hypertension 19 MOTHER G8 SISTER Myocardial infarction 19 FATHER Neoplasm 19 FATHER 19 MOTHER Seizure disorder son Thyroid disease G8 SISTER Heart Disease (RUFINA SIMON APRN) Physical Exam Vital Signs Vital Signs - First Documented 11/15/20 20:29 Temp 36.2 Pulse 50 Resp 16 B/P (MAP) 229/91 (137) Pulse Ox 99 O2 Delivery Room Air (TURNER CASTILLO MD) Vital Signs Capillary Refill : Less Than 3 Seconds (RUFINA SIMON APRN) Height, Weight, BMI Height: '" Weight: lbs. oz. kg; 35.92 BMI Method: General Appearance: No Apparent Distress, WD/WN, Other (Alert and oriented no distress heart rate is 49 sinus bradycardia. Her blood pressure is 220s over 90s on 2 consecutive readings.) Neck: Full Range of Motion, Normal Inspection Respiratory: Normal Breath Sounds, No Accessory Muscle Use, No Respiratory Distress Cardiovascular: Normal Peripheral Pulses, Bradycardia Gastrointestinal: Normal Bowel Sounds, Non Tender, Soft Extremity: Normal Capillary Refill, Normal Inspection Neurologic/Psychiatric: Alert, Oriented x3 Skin: Normal Color, Warm/Dry (RUFINA SIMON APRN) Progress/Results/Core Measures Results/Orders Lab Results Laboratory Tests Test 11/15/20 20:40 Range/Units White Blood Count 6.4 4.3-11.0 10^3/uL Red Blood Count 4.80 3.80-5.11 10^6/uL Hemoglobin 14.7 11.5-16.0 g/dL Hematocrit 45 35-52 % Mean Corpuscular Volume 94 80-99 fL Mean Corpuscular Hemoglobin 31 25-34 pg Mean Corpuscular Hemoglobin Concent 33 32-36 g/dL Red Cell Distribution Width 12.9 10.0-14.5 % Platelet Count 242 130-400 10^3/uL Mean Platelet Volume 9.9 9.0-12.2 fL Immature Granulocyte % (Auto) 0 % Neutrophils (%) (Auto) 42 42-75 % Lymphocytes (%) (Auto) 44 12-44 % Monocytes (%) (Auto) 8 0-12 % Eosinophils (%) (Auto) 5 0-10 % Basophils (%) (Auto) 1 0-10 % Neutrophils # (Auto) 2.7 1.8-7.8 10^3/uL Lymphocytes # (Auto) 2.8 1.0-4.0 10^3/uL Monocytes # (Auto) 0.5 0.0-1.0 10^3/uL Eosinophils # (Auto) 0.3 0.0-0.3 10^3/uL Basophils # (Auto) 0.1 0.0-0.1 10^3/uL Immature Granulocyte # (Auto) 0.0 0.0-0.1 10^3/uL Prothrombin Time 13.8 12.2-14.7 SEC INR Comment 1.0 0.8-1.4 Activated Partial Thromboplast Time 37 H 24-35 SEC Sodium Level 139 135-145 MMOL/L Potassium Level 4.0 3.6-5.0 MMOL/L Chloride Level 103 98-107 MMOL/L Carbon Dioxide Level 24 21-32 MMOL/L Anion Gap 12 5-14 MMOL/L Blood Urea Nitrogen 18 7-18 MG/DL Creatinine 0.97 0.60-1.30 MG/DL Estimat Glomerular Filtration Rate 59 BUN/Creatinine Ratio 19 Glucose Level 84 70-105 MG/DL Calcium Level 9.2 8.5-10.1 MG/DL Corrected Calcium 9.2 8.5-10.1 MG/DL Magnesium Level 2.4 1.6-2.4 MG/DL Total Bilirubin 0.3 0.1-1.0 MG/DL Aspartate Amino Transf (AST/SGOT) 18 5-34 U/L Alanine Aminotransferase (ALT/SGPT) 13 0-55 U/L Alkaline Phosphatase 120 40-136 U/L Myoglobin 28.8 10.0-92.0 NG/ML Troponin I < 0.028 <0.028 NG/ML B-Type Natriuretic Peptide 65.6 <100.0 PG/ML Total Protein 7.4 6.4-8.2 GM/DL Albumin 4.0 3.2-4.5 GM/DL (TURNER CASTILLO MD) Medications Given in ED Current Medications Medications Dose Ordered Sig/Sigrid Route Start Time Stop Time Status Last Admin Dose Admin Aspirin 324 mg ONCE ONCE PO 11/15/20 20:45 11/15/20 20:46 DC 11/15/20 20:48 324 MG Clonidine HCl 0.1 mg ONCE ONCE PO 11/15/20 21:45 11/15/20 21:46 DC 11/15/20 21:46 0.1 MG Nitroglycerin 1 TAB Q 5 MIN X 3 NEEDED PRN SL 11/15/20 21:00 11/15/20 22:18 DC 11/15/20 21:07 0.4 MG (TURNER CASTILLO MD) Vital Signs/I&O 11/15/20 11/15/20 11/15/20 20:29 20:29 22:16 Temp 36.2 36.2 Pulse 50 45 Resp 16 16 B/P (MAP) 229/91 (137) 204/78 (137) Pulse Ox 99 98 O2 Delivery Room Air Room Air Room Air (TURNER CASTILLO MD) Progress Progress Note : Progress Note NAME: CALEB WHYTE MED REC#: [id number] PT STATUS: REG ER : 1960 PHYSICIAN: RUFINA SIMON APRN ADMIT DATE: 11/15/20/ER Draft Date of Exam:11/15/20 CHEST 1 VIEW, AP/PA ONLY INDICATION: Chest tightness, pain, dizziness.. TECHNIQUE: Single view chest 8:57 PM. CORRELATION STUDY: 03/20/2020 FINDINGS: Cardiac enlargement is less severe from prior. Vasculature within normal limits. The lungs are clear with no consolidating infiltrate. There is no significant effusion or pneumothorax. Unchanged mildly elevated right diaphragm. IMPRESSION: 1. Cardiac enlargement without overt failure. Dictated on workstation # [id number] Dict: 11/15/202133 Trans: 11/15/202136 [facility] [id number] Interpreted by: ROSEMARY WATT DO Electronically signed by: (RUFINA SIMON APRN) Departure Communication (Admissions) EKG shows sinus bradycardia rate of [address] segment change 2141-her blood pressure is down to 180/80, heart rate at 49 sinus. Her chest pain began at about 530pm and her initial troponin was at about 830pm, 3 hours after the onset of pain. With that negative. That, in combination with a cardiac catheterization as recently as February showing clean coronaries, I think we can attribute her symptoms tonight to the hypertension. I will give her clonidine here, watch her for a bit longer then discharge. Have her increase her lisinopril from 10 mg daily to 20 mg daily at home. 2202-I spoke with Dr. Phillips on-call for cardiology, he agrees with the af rementioned plan. (RUFINA SIMON APRN) Impression Primary Impression: Hypertension Disposition: 01 HOME, SELF-CARE Condition: Stable Departure-Patient Inst. Decision time for Depature: 21:44 (RUFINA SIMON APRN) Referrals: [facility] (PCP) Primary Care Physician Patient Instructions: High Blood Pressure (DC) Add. Discharge Instructions: 1. Call Dr. Martínez's office tomorrow to make an appointment to be seen. Return to ER for any concerns. In the meantime, double your lisinopril dose up to 20 mg daily All discharge instructions reviewed with patient and/or family. Voiced understanding. ATTENDING PHYSICIAN NOTE: I was physically present as attending physician in the emergency department during the care of this patient, but I was not directly involved in the decision making or delivery of care for this patient. (TURNER CASTILLO MD) Copy Copies To 1: MARLEEN MARTÍNEZ MD, PETER J APRN Nov 15, 2020 20:53 TURNER CASTILLO MD Nov 16, 2020 07:43
[2020-11-15 21:16] LABS: BASOPHILS # (AUTO) 0.1 10^3/uL (0.0-0.1); BASOPHILS % (AUTO) 1 % (0-10); EOSINOPHILS # (AUTO) 0.3 10^3/uL (0.0-0.3); EOSINOPHILS % (AUTO) 5 % (0-10); HEMATOCRIT 45 % (35-52); HEMOGLOBIN 14.7 g/dL (11.5-16.0); LYMPHOCYTES # (AUTO) 2.8 10^3/uL (1.0-4.0); LYMPHOCYTES % (AUTO) 44 % (12-44); MEAN CORPUSCULAR HEMOGLOBIN 31 pg (25-34); MEAN CORPUSCULAR HGB CONC 33 g/dL (32-36); MEAN CORPUSCULAR VOLUME 94 fL (80-99); MEAN PLATELET VOLUME 9.9 fL (9.0-12.2); MONOCYTES # (AUTO) 0.5 10^3/uL (0.0-1.0); MONOCYTES % (AUTO) 8 % (0-12); NEUTROPHILS # (AUTO) 2.7 10^3/uL (1.8-7.8); NEUTROPHILS % (AUTO) 42 % (42-75); PLATELET COUNT 242 10^3/uL (130-400); WHITE BLOOD COUNT 6.4 10^3/uL (4.3-11.0)
[2020-11-15 21:21] LABS: CALCIUM 9.2 MG/DL (8.5-10.1)
[2020-11-15 21:22] LABS: TOTAL PROTEIN 7.4 GM/DL (6.4-8.2)
[2020-11-15 21:23] LABS: PROTHROMBIN TIME PATIENT 13.8 SEC (12.2-14.7)
[2020-11-15 21:24] LABS: BILIRUBIN,TOTAL 0.3 MG/DL (0.1-1.0)
[2020-11-15 21:26] LABS: CREATININE SERUM 0.97 MG/DL (0.60-1.30)
[2020-11-15 21:29] LABS: MAGNESIUM 2.4 MG/DL (1.6-2.4)
--- NOTE | 2020-11-15 21:37 | Diagnostic Imaging Report ---
INDICATION: Chest tightness, pain, dizziness.. TECHNIQUE: Single view chest 8:57 PM. CORRELATION STUDY: 03/20/2020 FINDINGS: Cardiac enlargement is less severe from prior. Vasculature within normal limits. The lungs are clear with no consolidating infiltrate. There is no significant effusion or pneumothorax. Unchanged mildly elevated right diaphragm. IMPRESSION: 1. Cardiac enlargement without overt failure. Dictated by: Dictated on workstation # [id number]
[2020-11-15] MEDS ORDERED: cloNIDine 0.1 MG (CATAPRES) TAB PO ONE (21:45)
[2020-11-15 22:16] VITALS: BP 204/78
--- OUTSIDE RECORDS SUMMARY | 2020-11-18 20:03 | XMS REPORT | Clinical Summary ---
Author Author [facility] Organization [facility] Address Unknown Phone Unavailable Care Team Providers Care Ramp Agent Name Role Phone PCP Unavailable Allergies Not on File Medications Not on file Active Problems Not on file Social History Date Tobacco Use Types Packs/Day Years Used Never Assessed Sex Assigned at Date Recorded Not on file Last Filed Vital Signs Not on file Plan of Treatment Not on file Results Not on filefrom Last 3 Months
--- OUTSIDE RECORDS SUMMARY | 2020-11-18 20:03 | XMS REPORT | Clinical Summary ---
Author Author [facility] Organization [facility] Address Unknown Phone Unavailable Care Team Providers Care Bell Captain Name Role Phone Connor Robertson PCP Source Comments Some departments are not documenting in the electronic medical record. If you d o not see the information that you expected, contact Release of Information in [facility] [employer] department at [phone] for further assistan ce in locating additional records.[facility] Allergies Comments Active Allergy Reactions Severity Noted Date Burning sensation in stomach Morphine STOMACH UPSET 12/21/2013 Medications End Date Status Medication Sig Dispensed Refills Start Date Active HYDROcodone/acetaminophen Take 1 Tab by 0 (NORCO; VICODIN) 5-325 mg mouth every 4 tablet hours as needed. Active trimethoprim-sulfamethoxa Take 1 Tab by 0 zole (BACTRIM DS) 160-800 mouth twice mg tablet daily. Active levothyroxine (SYNTHROID) Take 1 Tab by 30 Tab 1 50 mcg tablet mouth daily. 4 Active Problems No known active problems Surgical History Surgery Date Site/Laterality Comments TONSILLECTOMY HX CHOLECYSTECTOMY HX THYROIDECTOMY HIATAL HERNIA REPAIR Medical History Medical History Date Comments Hypertension Edema Measles Mumps Chicken pox Pneumonia Anemia Pneumonia Family History Medical History Relation Name Comments Heart Attack Father Heart Disease Father Diabetes Maternal Grandmother Cancer Mother Cancer-Breast Mother Hypertension Mother Relation Name Status Comments Father Maternal Grandmother Mother Social History Date Tobacco Use Types Packs/Day Years Used Current Every Day Smoker Cigarettes 0.5 Smokeless Tobacco: Never Used Drinks/Week oz/Week Comments Alcohol Use rarely Yes Sex Assigned at Date Recorded Not on file Last Filed Vital Signs Reading Time Taken Comments Vital Sign 140/80 12/21/2013 6:38 PM CDT Blood Pressure - - Pulse 37.4 C (99.4 F) 12/21/2013 2:24 PM CDT Temperature - - Respiratory Rate - - Oxygen Saturation - - Inhaled Oxygen Concentration 87.5 kg (193 lb) 12/21/2013 2:24 PM CDT Weight 161.3 cm (5' 3.5") 12/21/2013 2:24 PM CDT Height 33.65 12/21/2013 2:24 PM CDT Body Mass Index Plan of Treatment Health Maintenance Due Date Last Done Comments HIV SCREENING 1976 DTAP/TDAP VACCINES (1 - 1979 Tdap) HEPATITIS C SCREENING 1979 PHYSICAL (COMPREHENSIVE) 1979 EXAM CERVICAL CANCER SCREENING 1982 BREAST CANCER SCREENING 2001 COLORECTAL CANCER 2011 SCREENING SHINGLES RECOMBINANT 2011 VACCINE (1 of 2) INFLUENZA VACCINE 01/13/2021 Results Not on filefrom Last 3 Months Insurance Type Payer Benefit Subscriber ID Effective Phone Address Plan / Dates Group PPO BCBS [employer] BCBS [employer] [id number] 2013-P [facility] resent BRIJESH Advance Directives Patient Radiation Safety Officer Explanation Type Date Recorded Advance 12/17/2013 10:24 AM Directive/DPOA
[2020-11-23] MEDS ORDERED: POTA-51 PO (12:18)
[2020-11-23] MEDS ORDERED: OMEG-160 PO (12:18)
[2020-11-23] MEDS ORDERED: CARB15DR OU (12:18)
[2020-11-23] MEDS ORDERED: NFBIOT1000 PO (12:20)
== END 2020-11-15 22:18 | disposition home or self-care (01) ==
LOC: EDUNIT# 20:25 → ER 20:28
DX: I11.0 Hypertensive heart disease with heart failure (principal); I50.9 Heart failure, unspecified; J45.909 Unspecified asthma, uncomplicated; I48.91 Unspecified atrial fibrillation; K21.9 Gastro-esophageal reflux disease without esophagitis; Z86.73 Personal history of transient ischemic attack (TIA), and cerebral infarction without residual deficits; Z79.01 Long term (current) use of anticoagulants; Z79.899 Other long term (current) drug therapy
CPT/HCPCS: 36415; 71045; 80053; 83735; 83874; 83880; 84484; 85025; 85610; 85730; 93005

== ENCOUNTER → 2020-11-17 | Outpatient (CLI) | payer MEDICAID | LOC: CARD 14:30 | PROVIDERS: ATTEND Internal Medicine Cardiovascular Disease | DX: I10 Essential (primary) hypertension (principal); I25.10 Atherosclerotic heart disease of native coronary artery without angina pectoris | CPT/HCPCS: 93306 ==

== ENCOUNTER → 2020-11-21 | Outpatient (CLI) | payer MEDICAID ==
[~2020-11-21] MED LIST changes: +CARB15DR OU; +CEFU500T63 PO; +METO-352 PO; +NFBIOT1000 PO; +OMEG-160 PO
== END ==
LOC: LABNPT 09:06
PROVIDERS: ATTEND Internal Medicine Cardiovascular Disease
DX: Z20.822 Contact with and (suspected) exposure to COVID-19 (principal)
CPT/HCPCS: 87635

== ENCOUNTER 2020-11-23 13:00 | Day surgery (SDC) | payer MEDICAID ==
[~2020-11-23] VITALS: Ht 158.8 cm; Wt 92.5 kg
[2020-11-23] VITALS (10 sets, daily range): BP systolic 144–201; BP diastolic 78–93
[2020-11-23 12:03] LABS: HEMATOCRIT 47 % (35-52); HEMOGLOBIN 15.4 g/dL (11.5-16.0); MEAN CORPUSCULAR HEMOGLOBIN 31 pg (25-34); MEAN CORPUSCULAR HGB CONC 33 g/dL (32-36); MEAN CORPUSCULAR VOLUME 94 fL (80-99); MEAN PLATELET VOLUME 9.5 fL (9.0-12.2); PLATELET COUNT 245 10^3/uL (130-400)
[2020-11-23 12:16] LABS: INR 1.1 (0.8-1.4); PROTHROMBIN TIME PATIENT 14.2 SEC (12.2-14.7)
[2020-11-23 12:25] LABS: ALBUMIN 4.1 GM/DL (3.2-4.5); CALCIUM 9.6 MG/DL (8.5-10.1); CREATININE SERUM 0.91 MG/DL (0.60-1.30); POTASSIUM 3.9 MMOL/L (3.6-5.0); TOTAL PROTEIN 7.7 GM/DL (6.4-8.2)
--- NOTE | 2020-11-23 12:34 | Diagnostic Imaging Report ---
Indication: Arrhythmia Portable chest 12:13 PM Heart size and pulmonary vascularity are normal. Lungs are clear. There are no effusions or pneumothoraces. IMPRESSION: Negative chest. Dictated by: Dictated on workstation # [id number]
[~2020-11-23 13:00] MED LIST changes: -CEFU500T63 PO; +HEParin (CATH LAB) 1,000 ML IV ONE; +LIDOCAINE 1% INJ 20 ML 20 ML VIAL ONE; -METO-352 PO; +NS IV 1000 ML 1,000 ML IV ONE; +NS IV 1000 ML 1,000 ML ONE; +ceFAZolin INJECTION 1,000 MG ONE; +ceFAZolin INJECTION 1,000 MG VIAL IV ONE
[2020-11-23] MEDS ORDERED: fentaNYL INJ 100 MCG/2 ML AMP ONE ×2 (13:16→14:08)
[2020-11-23] MEDS ORDERED: NS (IVPB) 100 ML ONE (13:16)
[2020-11-23] MEDS ORDERED: MIDAZOLAM 5 MG/5 ML (VERSED) VIAL ONE ×2 (13:16→14:08)
[2020-11-23] MEDS ORDERED: proPOfol 200 MG/20 ML (DIPRIVAN) VIAL IV ONE (13:17)
[2020-11-23] MEDS ORDERED: PATIENT MAY USE OWN MEDS, ALL PO SCH (15:00)
[2020-11-23] MEDS ORDERED: NS IV 1000 ML 1,000 ML IV SCH (15:00)
--- NOTE | 2020-11-23 15:08 | ICD Implantation ---
Single Chamber ICD Implant DATE OF SERVICE: 60 female DUAL CHAMBER ICD IMPLANTATION PRIMARY PHYSICIAN: REFERRING PHYSICIAN: SHAVING MACHINE OPERATOR: Marleen Martínez INDICATION: PREOPERATIVE DIAGNOSES: POSTOPERATIVE DIAGNOSES: HISTORY: ICD implantation is recommended. PROCEDURE PERFORMED: Dual-chamber ICD implant DFT testing COMPLICATIONS: None. ESTIMATED BLOOD LOSS: 20 mL. SPECIMENS: None. ANESTHESIA: Conscious sedation. ORAL ANTICOAGULATION: None. FLUOROSCOPY TIME: FLUOROSCOPY DOSE: CONTRAST DOSE: PROCEDURE DETAILS: 60-year-old lady with history of congestive heart failure, had episode of nonsustained ventricular tachycardia and sinus node dysfunction, scheduled for dual-chamber ICD implant and DFT testing. After all the questions were answered, an informed consent was taken. All the risks and complication were explained in detail. The patient was brought to the EP lab. The patient's right and left chest was prepped and draped in the usual sterile fashion. A 2-inch horizontal incision was made 1 cm below the clavicle and dissection carried down to the pectoralis fascia. IV antibiotics were admin istered prior to first incision. Under fluoroscopic guidance, access was gained in the axillary vein and a regular J-wire was placed. We then introduced a sheath into the axillary vein. A ICD lead was inserted. The RV lead was inserted across the tricuspid valve to an apical septal portion of the RV. The lead position was checked in YURIDIA and LOVE view. The screw was deployed and lead connected to the programmer analyst health it. Good sensing and pacing thresholds were obtained. Diaphragmatic pacing was ruled out. The lead was secured with 2-0 Vicryl nonabsorbable sutures. The lead was secured to the underlying muscle and fascia. Atrial lead was advanced to the right atrial appendage and tested and secured in place ICD generator was attached to the leads and placed into Henrique patch then placed in the pocket and the pocket was closed on 2 layers. No complication noted DFT testing was done with assistance of anesthesia, induction was started with a T shock at 290 and failed to induce ventricular fibrillation., Repeat T shock at 310 ms was successful in inducing ventricular fibrillation and received a single shock was successful in terminating ventricular fibrillation. DEVICE INFORMATION: [place] XT DR MRI Serial [id number] RA lead [id number] RV lead [id number] INTRAOPERATIVE DEVICE TESTING: Good sensing and capture activity DEVICE INTERROGATION IMMEDIATELY POSTOP: Right atrium, threshold at 0.4 ms with 0.75 V. Impedance 570, P wave 1.8 mV Right ventricle, threshold 0.4 ms at 0.5 V, impedance 364 ohms, R wave 5.1 mV PLAN: The patient will be observed for 23 hours. We will continue with two more dosages of IV antibiotics. We will check a chest x-ray and interrogate the device in the morning. An EKG will be done as well. If everything checks out, the patient will be discharged tomorrow. CONCLUSION: Successful dual-chamber pacemaker/ICD implantation with no complication Successful DFT testing. FINAL DIAGNOSIS: Congestive heart failure, chronic compensated left ventricular systolic dysfunction, nonischemic cardiomyopathy Sinus node dysfunction Severe bradycardia Hypertension MARLEEN MARTÍNEZ MD Nov 23, 2020 15:08
--- NOTE | 2020-11-23 15:09 | Conscious Sedation/ASA ---
Conscious Sedation Pre-Proced Time 12:00 ASA Score 3 For ASA 3 and 4: Consider anesthesia and medical clearance. Also, for patients with a history of failed moderate sedation consider anesthesia. Airway Lungs Heart ASA score ASA 1: a normal healthy patient ASA 2: a patient with a mild systemic disease (mid diabetes, controlled hypertension, obesity x ASA 3: a patient with a severe systemic disease that limits activity (angina, COPD, prior Myocardial infarction) ASA 4: a patient with an incapacitating disease that is a constant threat to life (CHF, renal failure) ASA 5: a moribund patient not expected to survive 24 hrs. (ruptured aneurysm) ASA 6: a declared brain- patient whose organs are being harvested. For emergent operations, add the letter E after the classification Mallampati Classification Grade 3 Sedation Plan Analgesia, Amnesia, Plan communicated to team members, Discussed options with patient/fam, Discussed risks with patient/fam The patient is an appropriate candidate to undergo the planned procedure, sedation, and anesthesia. The patient immediately re-assessed prior to indication. MARLEEN MCQUEEN MD Nov 23, 2020 15:09
--- NOTE | 2020-11-23 15:26 | Diagnostic Imaging Report ---
INDICATION: Arrhythmia. EXAMINATION: Portable chest at 3:15 PM. FINDINGS: There is a dual-chamber pacemaker. The heart size and pulmonary vascularity are normal. The lungs are clear. There are no effusions or pneumothoraces. IMPRESSION: Shallow inspiration. No acute abnormality is seen in the chest. Dictated by: Dictated on workstation # [id number]
[2020-11-23] MEDS ORDERED: lisINopril 20 MG (PRINIVIL) TABLET PO NR (18:45)
[2020-11-23] MEDS: APIXABAN 5 MG (ELIQUIS) TABLET PO SCH (19:52)
[2020-11-23] MEDS: ceFAZolin INJECTION 1,000 MG in WATER (STERILE) FOR INJECTION 10 ML IV SCH (21:40)
[2020-11-23] MEDS ORDERED: lisINopril 20 MG (PRINIVIL) TABLET PO ONE (22:45)
[2020-11-24 03:45] VITALS: BP 173/83
[2020-11-24] MEDS: ACETAMINOPHEN 325 MG TABLET PO PRN ×2 (04:43→10:21)
[2020-11-24] MEDS: ceFAZolin INJECTION 1,000 MG in WATER (STERILE) FOR INJECTION 10 ML IV SCH (06:01)
[2020-11-24] MEDS ORDERED: lisINopril 20 MG (PRINIVIL) TABLET ONE (06:24)
[2020-11-24] MEDS ORDERED: KCL 20 MEQ TAB (K-DUR) PO SCH (07:00)
[2020-11-24] MEDS ORDERED: METO-352 PO (07:15)
[2020-11-24] MEDS ORDERED: CEFU500T63 PO (07:16)
[2020-11-24 07:40] VITALS: BP 170/84
[2020-11-24] MEDS: APIXABAN 5 MG (ELIQUIS) TABLET PO SCH (08:04)
[2020-11-24] MEDS ORDERED: NON-FORMULARY MEDICATION 1 EA EA (Potassium Chloride 20 MEQ) PO SCH (09:00)
[2020-11-24] MEDS ORDERED: lisINopril 10 MG (PRINIVIL) TABLET PO SCH (09:00)
[2020-11-24] MEDS ORDERED: FUROSEMIDE 20 MG (LASIX) TAB PO SCH (09:00)
[2020-11-24] MEDS ORDERED: lisINopril 20 MG (PRINIVIL) TABLET PO SCH ×2 (09:00)
--- NOTE | 2020-11-24 09:01 | Discharge Inst-Post CATH ---
Discharge Inst-CATH/EP Problems Reviewed?: Yes Post Cardiac Cath/EP D/C Inst Follow Up/Plan Appointment with Dr. Martínez's office next week <b>CARDIAC CATH/EP PROCEDURE DISCHARGE INSTRUCTIONS</b> ACTIVITY * Go Home directly and rest. * Limit activity of the leg (or wrist if it was used) for 7 days including aerobics, swimming, jogging, bicycling, etc. * Restrict stair-climbing for 7 days if possible, if not, climb up with your non-cath leg, then bring together on the same step. * Avoid lifting, pushing, pulling or excessive movement of the affected extremity for 7 days. * Customary sexual activity may be resumed after 2 days-use caution not to use a position that strains or causes pain to the affected extremity. * No driving for 24 hours. * NO SMOKING. * Avoid straining for bowel movements for 7 days. * Gentle walking on level ground is allowed. * Returning to work will depend on the type of procedure and the results. Your doctor will discuss this with you. CALL YOUR DOCTOR FOR ANY OF THE FOLLOWING: *If bleeding from the puncture site occurs- Apply gentle pressure to site with clean cloth and call your doctor or EMS. * If a knot or lump forms under the skin, increases in size, or causes pain. * If bruising appears to be worsening or moving further down your leg instead of disappearing. * Temperature above 101 F. CARE OF YOUR GROIN INCISION; * Bruising or purple discoloration of the skin near the puncture site is common. * You may shower only, no bathtub bathing for 5 days. Be careful to avoid slipping as your leg may feel stiff. * If a closure device was used on your femoral artery, please see the attached guide regarding care of the device and your leg. * Leave dressing on FOR 24 hours. CARE OF YOUR WRIST INCISION; * Bruising or purple discoloration of the skin near the puncture site is common. * You may shower. * DO NOT submerge wrist. * Leave dressing on FOR 24 hours. MARLEEN MARTÍNEZ MD Nov 24, 2020 09:01
--- NOTE | 2020-11-24 09:03 | Cardiology Progress Note ---
Subjective Date Seen by Provider: Nov 24, 2020 Time Seen by Provider: 09:01 Subjective/Events-last exam Patient is laying down in bed, feeling better. No new complaint, site is healing well Review of Systems General: No Chills, No Night Sweats, No Fatigue, No Malaise, No Appetite, No Other HEENT: No Head Aches, No Visual Changes, No Eye Pain, No Ear Pain, No Dyspha franco, No Sinus Congestion, No Post Nasal Drip, No Sore Throat, No Other Pulmonary: No Dyspnea, No Cough, No Pleuritic Chest Pain, No Other Cardiovascular: No: Chest Pain, Palpitations, Orthopnea, Paroxysmal Noc. Dyspnea, Edema, Lt Headedness, Other Objective-Cardiology Exam Last Set of Vital Signs Vital Signs 11/24/20 07:40 Temp 36.6 Pulse 60 Resp 12 B/P (MAP) 170/84 (112) Pulse Ox 96 O2 Delivery Room Air I&O Intake and Output 11/24/20 00:00 Intake Total 1210 ml Balance 1210 ml Intake Oral 200 ml IV Total 1010 ml Daily Weight Change No General: Alert, Oriented X3, Cooperative HEENT: Atraumatic, PERRLA Neck: Supple, No JVD, No Thyromegaly Lungs: Clear to Auscultation, Normal Air Movement Heart: Regular Rate, Normal S1, Normal S2, No Murmurs Abdomen: Normal Bowel Sounds, Soft, No Tenderness, No Hepatosplenomegaly, No Masses Extremities: No Clubbing, No Cyanosis, No Edema, Normal Pulses, No Tenderness/Swelling Skin: No Rashes, No Breakdown, No Significant Lesion Neuro: Normal Gait, Normal Speech, Strength at 5/5 X4 Ext, Normal Tone, Sensation Intact Psych/Mental Status: Mental Status NL, Mood NL Results Lab Laboratory Tests 11/23/20 11:56 A/P-Cardiology Admission Diagnosis Congestive heart failure Sinus node dysfunction Hypertension Coronary artery disease Assessment/Plan Congestive heart failure, chronic compensated left ventricular systolic dysfunction, nonischemic cardiomyopathy. Coronary artery disease, clinically stable Sinus node dysfunction, severe bradycardia, status post pacemaker/ICD implant History of nonsustained ventricular tachycardia. Continue to monitor Hypertension, poor control, started on beta-blockers. Continue to monitor Hyperlipidemia MARLEEN MCQUEEN MD Nov 24, 2020 09:03
[2020-11-24 12:24] VITALS: BP 170/84
== END 2020-11-24 12:20 | disposition home or self-care (01) ==
LOC: CATH 13:00 → CSD 15:00 → CATH 11-24 12:20
PROVIDERS: ATTEND Internal Medicine Cardiovascular Disease
DX: I11.0 Hypertensive heart disease with heart failure (principal); I50.22 Chronic systolic (congestive) heart failure; I49.5 Sick sinus syndrome; I42.8 Other cardiomyopathies; I25.10 Atherosclerotic heart disease of native coronary artery without angina pectoris; Z79.01 Long term (current) use of anticoagulants; Z79.899 Other long term (current) drug therapy; Z87.891 Personal history of nicotine dependence; Z98.890 Other specified postprocedural states
CPT/HCPCS: 33249; 71045; 80053; 85027; 85610; 85730; 87081; 93641; C1721; C1895; C1898; 36415

== ENCOUNTER 2021-04-24 17:23 | Emergency (ER) | payer MEDICAID ==
[~2021-04-24] VITALS: Ht 157.5 cm; Wt 94.0 kg
[~2021-04-24 17:23] MED LIST changes: +CEFU500T63 PO; -HEParin (CATH LAB) 1,000 ML IV ONE; -LIDOCAINE 1% INJ 20 ML 20 ML VIAL ONE; +METO-352 PO; -NS IV 1000 ML 1,000 ML IV ONE; -NS IV 1000 ML 1,000 ML ONE; -ceFAZolin INJECTION 1,000 MG ONE; -ceFAZolin INJECTION 1,000 MG VIAL IV ONE
[2021-04-24 18:35] LABS: BASOPHILS % (AUTO) 1 % (0-10); EOSINOPHILS # (AUTO) 0.3 10^3/uL (0.0-0.3); EOSINOPHILS % (AUTO) 5 % (0-10); HEMATOCRIT 43 % (35-52); HEMOGLOBIN 13.4 g/dL (11.5-16.0); LYMPHOCYTES # (AUTO) 0.7 10^3/uL (1.0-4.0); LYMPHOCYTES % (AUTO) 11 % (12-44); MEAN CORPUSCULAR HEMOGLOBIN 30 pg (25-34); MEAN CORPUSCULAR HGB CONC 31 g/dL (32-36); MEAN CORPUSCULAR VOLUME 96 fL (80-99); MEAN PLATELET VOLUME 9.4 fL (9.0-12.2); MONOCYTES # (AUTO) 0.6 10^3/uL (0.0-1.0); MONOCYTES % (AUTO) 10 % (0-12); NEUTROPHILS # (AUTO) 4.5 10^3/uL (1.8-7.8); NEUTROPHILS % (AUTO) 74 % (42-75); PLATELET COUNT 218 10^3/uL (130-400); WHITE BLOOD COUNT 6.1 10^3/uL (4.3-11.0)
[2021-04-24 18:50] LABS: ALBUMIN 4.1 GM/DL (3.2-4.5); POTASSIUM 3.9 MMOL/L (3.6-5.0)
[2021-04-24 18:51] LABS: CALCIUM 8.8 MG/DL (8.5-10.1)
[2021-04-24 18:52] LABS: TOTAL PROTEIN 7.5 GM/DL (6.4-8.2)
[2021-04-24 18:54] LABS: BILIRUBIN,TOTAL 0.4 MG/DL (0.1-1.0)
[2021-04-24 18:56] LABS: CREATININE SERUM 0.99 MG/DL (0.60-1.30)
--- NOTE | 2021-04-24 19:08 | ED General ---
General Chief Complaint: Cough/Cold/Flu Symptoms Stated Complaint: HX CHF, BP 192/92,WEAKNESS Nursing Triage Note: PT AMB TO RM 8 W REPORTS OF PAIN ACROSS CHEST THAT RADIATES TO HER BACK WORSE W DEEP BREATHING, SOA, AND RAMAN. PT A&OX4. Source of Information: Patient Exam Limitations: No Limitations History of Present Illness Date Seen by Provider: Apr 24, 2021 Time Seen by Provider: 18:08 Initial Comments This 61-year-old woman presents to the emergency room with complaints of shortness of breath, weakness, chest pain described as a burning that radiates to her back, hypertension, headache, chills, and abdominal discomfort. She has been ill for a couple of days. She has been noting increasing blood pressure during that time. She has no tachycardia or hypoxia. Allergies and Home Medications Allergies Coded Allergies: morphine (Unverified Allergy, Mild, 03/20/20) Patient Home Medication List Home Medication List Reviewed: Yes Acetaminophen (Tylenol Extra Strength) 500 Mg Tablet, 1,000 MG PO Q8H PRN for PAIN-MILD (1-4), (Reported) Entered as Reported by: SPENCER HATHAWAY on 03/04/20 1012 Apixaban (Eliquis) 5 Mg Tablet, 5 MG PO BID, (Reported) Entered as Reported by: CHRISTINA FUENTES on 07/25/20 1116 Biotin (Biotin) 1,000 Mcg Tablet, 1,000 MCG PO DAILY, (Reported) Entered as Reported by: PENNIE BOOTH on 11/23/20 1220 Carboxymethylcellulose Sodium (Refresh Tears) 15 Ml Drops, 1 DROP OU DAILY PRN for DRY EYES, (Reported) Entered as Reported by: PENNIE BOOTH on 11/23/20 1218 Cefuroxime Axetil (Cefuroxime) 500 Mg Tablet, 500 MG PO BID Prescribed by: MARLEEN MCQUEEN on 11/24/20 0716 Furosemide (Furosemide) 20 Mg Tablet, 20 MG PO DAILY, (Reported) Entered as Reported by: CHRISTINA FUENTES on 07/25/20 1116 Lisinopril (Lisinopril) 10 Mg Tablet, 20 MG PO DAILY, (Reported) Entered as Reported by: CHRISTINA FUENTES on 07/25/20 1116 Metoprolol Succinate (Toprol Xl) 50 Mg Tab.er.24h, 50 MG PO DAILY Prescribed by: MARLEEN MCQUEEN on 11/24/20 0715 [place]-3/Dha/Epa/Fish Oil (Fish Oil 1,000 mg Softgel) 1 Each Capsule, 3 EACH PO DAILY, (Reported) Entered as Reported by: PENNIE BOOTH on 11/23/20 1218 Ondansetron (Ondansetron Odt) 4 Mg Tab.rapdis, 4 MG SL Q4H PRN for NAUSEA/VOMITING Prescribed by: TURNER JUSTICE on 04/24/21 2336 Potassium Chloride (Potassium Chloride) 20 Meq Tablet.er, 20 MEQ PO DAILY, (Reported) Entered as Reported by: PENNIE BOOTH on 11/23/20 1218 Review of Systems Review of Systems Constitutional: see HPI EENTM: no symptoms reported Respiratory: see HPI Cardiovascular: see HPI Gastrointestinal: no symptoms reported Genitourinary: no symptoms reported : No Musculoskeletal: see HPI Skin: no symptoms reported Psychiatric/Neurological: See HPI Hematologic/Lymphatic: No Symptoms Reported Immunological/Allergic: no symptoms reported Past Ackbfgn-Ypkedy-Czbsxy Hx Patient Social History Tobacco Use?: No Use of E-Cig and/or Vaping dev: No Substance use?: No Alcohol Use?: No Immunizations Up To Date Tetanus Booster (TDap): Unknown PED Vaccines UTD: Yes Influenza Vaccine Up-to-Date: Yes; Up-to-Date First/Initial COVID19 Vaccinat: SEPTEMBER 2020 Second COVID19 Vaccination [place]: OCTOBER 2020 COVID19 Vaccine Specialties Operator: CIPRIANO Seasonal Allergies Seasonal Allergies: Yes Past Medical History Surgery/Hospitalization HX: T/A, THRYOID, MARVEL, , HERNIA, CHF, GRAVES DX, ARTHRITIS Surgeries: Yes (OPEN CHOLECYSTECTOMY; HIATAL HERNIA REPAIR) Abdominal, Section, Gallbladder, Pacemaker, Thyroidectomy, Tonsillectomy Respiratory: Yes Asthma, Chronic Bronchitis Currently Using CPAP: No Currently Using BIPAP: No Cardiac: Yes (BRADYCARDIA, CHF) Atrial Fibrillation, Hypertension, Palpitations Neurological: Yes Headaches /Migraines, 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 Genitourinary: No Gastrointestinal: Yes Gastroesophageal Reflux, Hiatal Hernia Musculoskeletal: Yes Arthritis Endocrine: Yes (hx thyoidectomy) Hypothyroidsim HEENT: No Cancer: No Psychosocial: Yes Depression Integumentary: No Blood Disorders: No Family Medical History Arthritis G8 SISTER son daughter Cardiovascular disease 19 FATHER Congenital heart disease Diabetes mellitus 19 MOTHER Headache disorder G8 SISTER son daughter Hypertension 19 MOTHER G8 SISTER Myocardial infarction 19 FATHER Neoplasm 19 FATHER 19 MOTHER Seizure disorder son Thyroid disease G8 SISTER Heart Disease Physical Exam Vital Signs Vital Signs - First Documented 04/24/21 17:48 Temp 38.4 Pulse 80 Resp 22 B/P (MAP) 187/95 (125) Pulse Ox 98 O2 Delivery Room Air Capillary Refill : Less Than 3 Seconds Height, Weight, BMI Height: '" Weight: lbs. oz. kg; 37.00 BMI Method: General Appearance: No Apparent Distress, WD/WN HEENT: PERRL/EOMI, Normal ENT Inspection Neck: Normal Inspection Respiratory: Lungs Clear, Normal Breath Sounds, No Accessory Muscle Use Cardiovascular: Regular Rate, Rhythm, No Edema, No Murmur Gastrointestinal: Soft; No Distended; Tenderness (slight in the right mid abdomen) Extremity: Normal Inspection, No Pedal Edema Neurologic/Psychiatric: Alert, Oriented x3, No Motor/Sensory Deficits, Normal Mood/Affect, vmware architect II-XII Norm as Tested Skin: Normal Color, Warm/Dry Progress/Results/Core Measures Suspected Sepsis SIRS Temperature: Pulse: 80 Respiratory Rate: 22 Laboratory Tests 04/24/21 18:10: White Blood Count 6.1 Blood Pressure 187 /95 Mean: 125 Laboratory Tests 04/24/21 18:10: Creatinine 0.99, INR Comment 1.0, Platelet Count 218, Total Bilirubin 0.4 Results/Orders Lab Results Laboratory Tests Test 04/24/21 18:10 04/24/21 19:21 Range/Units White Blood Count 6.1 4.3-11.0 10^3/uL Red Blood Count 4.50 3.80-5.11 10^6/uL Hemoglobin 13.4 11.5-16.0 g/dL Hematocrit 43 35-52 % Mean Corpuscular Volume 96 80-99 fL Mean Corpuscular Hemoglobin 30 25-34 pg Mean Corpuscular Hemoglobin Concent 31 L 32-36 g/dL Red Cell Distribution Width 12.7 10.0-14.5 % Platelet Count 218 130-400 10^3/uL Mean Platelet Volume 9.4 9.0-12.2 fL Immature Granulocyte % (Auto) 0 % Neutrophils (%) (Auto) 74 42-75 % Lymphocytes (%) (Auto) 11 L 12-44 % Monocytes (%) (Auto) 10 0-12 % Eosinophils (%) (Auto) 5 0-10 % Basophils (%) (Auto) 1 0-10 % Neutrophils # (Auto) 4.5 1.8-7.8 10^3/uL Lymphocytes # (Auto) 0.7 L 1.0-4.0 10^3/uL Monocytes # (Auto) 0.6 0.0-1.0 10^3/uL Eosinophils # (Auto) 0.3 0.0-0.3 10^3/uL Basophils # (Auto) 0.0 0.0-0.1 10^3/uL Immature Granulocyte # (Auto) 0.0 0.0-0.1 10^3/uL Prothrombin Time 14.0 12.2-14.7 SEC INR Comment 1.0 0.8-1.4 Activated Partial Thromboplast Time 38 H 24-35 SEC Sodium Level 139 135-145 MMOL/L Potassium Level 3.9 3.6-5.0 MMOL/L Chloride Level 105 98-107 MMOL/L Carbon Dioxide Level 24 21-32 MMOL/L Anion Gap 10 5-14 MMOL/L Blood Urea Nitrogen 19 H 7-18 MG/DL Creatinine 0.99 0.60-1.30 MG/DL Estimat Glomerular Filtration Rate 57 BUN/Creatinine Ratio 19 Glucose Level 109 H 70-105 MG/DL Calcium Level 8.8 8.5-10.1 MG/DL Corrected Calcium 8.7 8.5-10.1 MG/DL Total Bilirubin 0.4 0.1-1.0 MG/DL Aspartate Amino Transf (AST/SGOT) 21 5-34 U/L Alanine Aminotransferase (ALT/SGPT) 20 0-55 U/L Alkaline Phosphatase 89 40-136 U/L Myoglobin 36.7 10.0-92.0 NG/ML Troponin I < 0.028 <0.028 NG/ML C-Reactive Protein High Sensitivity 0.22 0.00-0.50 MG/DL B-Type Natriuretic Peptide 52.9 <100.0 PG/ML Total Protein 7.5 6.4-8.2 GM/DL Albumin 4.1 3.2-4.5 GM/DL Thyroid Stimulating Hormone (TSH) 0.75 0.35-4.94 UIU/ML Free Thyroxine 0.86 0.70-1.48 NG/DL Influenza Type A (RT-PCR) Not Detected Not Detecte Influenza Type B (RT-PCR) Not Detected Not Detecte SARS-CoV-2 RNA (RT-PCR) Detected H Not Detecte Urine Color YELLOW Urine Clarity CLEAR Urine pH 5.5 5-9 Urine Specific [place] >=1.030 1.016-1.022 Urine Protein NEGATIVE NEGATIVE Urine Glucose (UA) NEGATIVE NEGATIVE Urine Ketones NEGATIVE NEGATIVE Urine Nitrite NEGATIVE NEGATIVE Urine Bilirubin NEGATIVE NEGATIVE Urine Urobilinogen 0.2 < = 1.0 MG/DL Urine Leukocyte Esterase NEGATIVE NEGATIVE Urine RBC (Auto) 2+ H NEGATIVE Urine RBC 2-5 H /HPF Urine WBC 0-2 /HPF Urine Crystals PRESENT H /LPF Urine Amorphous Sediment RARE IRMA URATES H /LPF Urine Bacteria TRACE /HPF Urine Casts NONE /LPF Urine Mucus MODERATE H /LPF Urine Culture Indicated NO My Orders Orders - TURNER CASTILLO MD Bnp Zeb (04/24/21 18:08) Cbc With Automated Diff (04/24/21 18:08) Comprehensive Metabolic Panel (04/24/21 18:08) Ua Culture If Indicated (04/24/21 18:08) Ed Iv/Invasive Line Start (04/24/21 18:08) Covid 19 Inhouse Test (04/24/21 18:32) Influenza A And B By Pcr (04/24/21 18:32) Chest 1 View, Ap/Pa Only (04/24/21 19:08) Ekg Tracing (04/24/21 19:08) Myoglobin Serum (04/24/21 19:08) Protime With Inr (04/24/21 19:08) Partial Thromboplastin Time (04/24/21 19:08) Monitor-Rhythm Ecg Trace Only (04/24/21 19:08) Ed Iv/Invasive Line Start (04/24/21 19:08) Troponin I Zeb (04/24/21 19:08) Hs C Reactive Protein (04/24/21 20:09) Thyroid Stimulating Hormone (04/24/21 20:09) Free T4 (Free Thyroxine) (04/24/21 20:09) Fentanyl Inj (Sublimaze Injection) (04/24/21 22:15) Ondansetron Injection (Zofran Injectio (04/24/21 23:45) Medications Given in ED Current Medications Medications Dose Ordered Sig/Sigrid Route Start Time Stop Time Status Last Admin Dose Admin Fentanyl Citrate 50 mcg ONCE ONCE IVP 04/24/21 22:15 04/24/21 22:16 DC 04/24/21 22:45 50 MCG Ondansetron HCl 4 mg ONCE ONCE IVP 04/24/21 23:45 04/24/21 23:46 DC 04/24/21 23:36 4 MG Vital Signs/I&O 04/24/21 04/24/21 17:48 23:48 Temp 38.4 36.3 Pulse 80 60 Resp 22 18 B/P (MAP) 187/95 (125) 152/73 Pulse Ox 98 96 O2 Delivery Room Air Room Air Capillary Refill : Less Than 3 Seconds Blood Pressure Mean: 125 Progress Note : Progress Note Headache was treated with fentanyl. NSAIDs cannot be used due to her Eliquis use. COVID test was positive. See discharge instructions. Zofran given for nausea. ECG Initial ECG Impression Date: Apr 24, 2021 Initial ECG Impression Time: 19:17 Initial ECG Rate: 64 Initial ECG Rhythm: Normal Sinus Initial ECG Intervals: Normal Comment Normal sinus rhythm with no ST elevation or depression. No abnormal intervals or axis deviation Diagnostic Imaging Diagonstic Imaging: Xray Plain Films/CT/US/NM/MRI: chest Comments NAME: [facility] REC#: [id number] PT STATUS: REG ER : 1960 PHYSICIAN: TURNER CASTILLO MD ADMIT DATE: 04/24/21/ER Signed Date of Exam:04/24/21 CHEST 1 VIEW, AP/PA ONLY INDICATION: Chest pain, pacemaker. COMPARISON: 11/23/2020 FINDINGS: Single view of the chest demonstrates clear lungs bilaterally. The heart is normal. There is no pneumothorax. The osseous structures are normal. The pacemaker is in stable position. IMPRESSION: Negative chest. Dictated by: Dictated on workstation # [id number] Dict: 04/24/212004 Trans: 04/24/21 2013 [facility] [id number] Interpreted by: ROB VAZQUEZ Electronically signed by: ROB VAZQUEZ 04/24/212012 Departure Impression Primary Impression: COVID-19 Additional Impressions: Nausea & vomiting Qualified Codes: R11.2 - Nausea with vomiting, unspecified Atypical chest pain Disposition: HOME, SELF-CARE Condition: Improved Departure-Patient Inst. Decision time for Depature: 23:32 Referrals: [facility] (PCP/Family) Primary Care Physician Patient Instructions: COVID-19 Overview, Sotrovimab FDA Fact Sheet Add. Discharge Instructions: Drink plenty of clear liquids to stay well-hydrated. Change positions often and moves about during the day. This helps breathing with COVID-19. Eat a well-balanced diet and take a multivitamin daily. If monoclonal antibody infusion therapy becomes available, you may receive a phone call from the hospital pharmacy to schedule a time for infusion. Please read the fact sheet attached. If you are able, obtain a pulse oximeter and check your oxygen saturations frequently, especially if you have increasing shortness of breath. If you have multiple measurements below 92% or any measurements under 90%, please return to the emergency room. Use Tylenol (acetaminophen) up to 1000 mg every 6 hours as needed for pain or fever. Call with questions or concerns. Return to the ER if you have any other worsening of symptoms. Follow CDC or local health department quarantine guidelines. All discharge instructions reviewed with patient and/or family. Voiced understanding. Scripts Ondansetron (Ondansetron Odt) 4 Mg Tab.rapdis 4 MG SL Q4H PRN for NAUSEA/VOMITING, #10 TAB Prov: TURNER CASTILLO MD 04/24/21 Copy Copies To 1: LALA LEE JOSHUA T MD Apr 24, 2021 19:07
[2021-04-24 19:29] LABS: BILIRUBIN,URINE NEGATIVE (NEGATIVE); CLARITY,URINE CLEAR; COLOR,URINE YELLOW; GLUCOSE, URINE (UA) NEGATIVE (NEGATIVE); KETONES,URINE NEGATIVE (NEGATIVE); LEUKOCYTE ESTERASE ,URINE NEGATIVE (NEGATIVE); NITRITE,URINE NEGATIVE (NEGATIVE); PH,URINE 5.5 (5-9); PROTEIN,URINE NEGATIVE (NEGATIVE)
[2021-04-24 19:57] LABS: BACTERIA,URINE TRACE /HPF; WBC,URINE 0-2 /HPF
[2021-04-24 19:58] LABS: AMORPHOUS SEDIMENT,UR RARE AMOR URATES /LPF
--- NOTE | 2021-04-24 20:13 | Diagnostic Imaging Report ---
INDICATION: Chest pain, pacemaker. COMPARISON: 11/23/2020 FINDINGS: Single view of the chest demonstrates clear lungs bilaterally. The heart is normal. There is no pneumothorax. The osseous structures are normal. The pacemaker is in stable position. IMPRESSION: Negative chest. Dictated by: Dictated on workstation # [id number]
[2021-04-24 20:48] LABS: FREE T4 (FREE THYROXINE) 0.86 NG/DL (0.70-1.48)
[2021-04-24] MEDS ORDERED: fentaNYL INJ 100 MCG/2 ML AMP IVP ONE (22:15)
[2021-04-24] MEDS ORDERED: ONDA4TAB11 SL (23:36)
[2021-04-24] MEDS ORDERED: ONDANSETRON 4 MG/2 ML (SDV) Z0FRAN IVP ONE (23:45)
[2021-04-24 23:48] VITALS: BP 152/73
== END 2021-04-24 23:58 | disposition home or self-care (01) ==
LOC: EDUNIT# 17:23 → ER 17:25
DX: U07.1 COVID-19 (principal); R11.2 Nausea with vomiting, unspecified; I11.0 Hypertensive heart disease with heart failure; I50.9 Heart failure, unspecified; I48.91 Unspecified atrial fibrillation; Z86.73 Personal history of transient ischemic attack (TIA), and cerebral infarction without residual deficits; Z79.01 Long term (current) use of anticoagulants
CPT/HCPCS: 36415; 71045; 80053; 81000; 83874; 83880; 84439; 84443; 84484; 85025; 85610; 85730; 86141; 87636; 93005

== ENCOUNTER → 2021-06-30 | Outpatient (CLI) | payer MEDICAID ==
[~2021-06-30] MED LIST changes: +ONDA4TAB11 SL
== END ==
LOC: CARD 10:30
PROVIDERS: ATTEND Pediatrics
DX: I51.7 Cardiomegaly (principal); I50.20 Unspecified systolic (congestive) heart failure
CPT/HCPCS: 93306

== ENCOUNTER 2021-07-20 05:42 | Outpatient (CLI) | payer MEDICAID ==
[~2021-07-20] VITALS: Ht 160 cm; Wt 103.1 kg
[2021-07-20] MEDS ORDERED: CETI10TA17 PO (09:16)
[2021-07-20] MEDS ORDERED: ATOR20TA66 PO (09:16)
[2021-07-20] MEDS ORDERED: CHOL50005 PO (09:16)
[2021-07-20] MEDS ORDERED: SIME80TA16 PO (09:16)
[2021-07-20] MEDS ORDERED: FLUT15.845 NS (09:16)
== END 2021-07-20 11:15 | disposition home or self-care (01) ==
LOC: PREOP 05:42
PROVIDERS: ATTEND Surgery
DX: Z01.818 Encounter for other preprocedural examination (principal)

== ENCOUNTER 2021-08-08 08:53 | Day surgery (SDC) | payer MEDICAID ==
[~2021-08-08] VITALS: Ht 160 cm; Wt 103.0 kg
[~2021-08-08 08:53] MED LIST changes: +ATOR20TA66 PO; +CETI10TA17 PO; +CHOL50005 PO; +FLUT15.845 NS; +SIME80TA16 PO
[2021-08-08] MEDS ORDERED: LACTATED RINGERS 1,000 ML IV ONE (08:56)
[2021-08-08] MEDS ORDERED: LACTATED RINGERS 1,000 ML IV STA (08:57)
[2021-08-08] MEDS ORDERED: HURRICAINE EXT TUBE (BENZOCAINE) XX PRN (09:00)
[2021-08-08 09:20] VITALS: BP 136/102
--- NOTE | 2021-08-08 10:00 | Progress Note-Pre Operative ---
Pre-Operative Progress Note H&P Reviewed The H&P was reviewed, patient examined and no changes noted. Date Seen by Provider: Aug 08, 2021 Time Seen by Provider: 09:59 Date H&P Reviewed: Aug 08, 2021 Time H&P Reviewed: 09:59 Pre-Operative Diagnosis: Abdominal pain, bloating, nausea, screening colonoscopy RICH HARRINGTON DO Aug 08, 2021 10:00
[2021-08-08] MEDS ORDERED: PROPOFOL INJECTION 50 ML IV ONE (10:05)
[2021-08-08] MEDS ORDERED: MIDAZOLAM 2 MG/2 ML (VERSED) VIAL ONE (10:05)
[2021-08-08] MEDS ORDERED: PANT40TA2 PO (10:47)
--- NOTE | 2021-08-08 10:47 | Discharge Inst-Simple/Standard ---
Discharge Inst-Standard Discharge Medications New, Converted or Re-Newed RX: Transmitted to Pharmacy Patient Instructions/Follow Up Plan of Care/Instructions/FU: 2 weeks Valdo Activity as Tolerated: Yes Discharge Diet: Regular Diet RICH HARRINGTON DO Aug 08, 2021 10:47
[2021-08-08 10:50] VITALS: BP 120/58
--- NOTE | 2021-08-08 10:50 | Progress Note-Post Operative ---
Post-Operative Progess Note Surgeon (s)/Radiologic Technology Program Director (s) Surgeon RICH HARRINGTON DO Radiologic Technology Program Director: none Pre-Operative Diagnosis Abdominal pain, bloating, nausea, screening colonoscopy Post-Operative Diagnosis Gastritis. Diverticulosis, and colon polyps x6. Procedure & Operative Findings Date of Procedure 08/08/21 Procedure Performed/Findings EGD with biopsies x2. Colonoscopy with hot biopsy polypectomy x6. Anesthesia Type per CLAIM PROFESSIONAL Estimated Blood Loss Estimated blood loss (mL): none Specimens/Packing Specimens Removed Antrum biopsy x1, GE junction biopsy x1. Ascending polyp x1, transverse polyp x1, descending polyp x2, sigmoid polyp x2. RICH HARIRNGTON DO Aug 08, 2021 10:50
[2021-08-08 10:55] VITALS: BP 150/65
[2021-08-08 11:25] VITALS: BP 135/79
[2021-08-08 11:35] VITALS: BP 135/79
--- NOTE | 2021-08-08 14:06 | Anesthesia-General Post-Op ---
MAC Patient Condition Mental Status/LOC: Same as Preop Cardiovascular: Satisfactory Nausea/Vomiting: Absent Respiratory: Satisfactory Pain: Controlled Complications: Absent Post Op Complications Complications None Follow Up Care/Instructions Patient Instructions None needed. Anesthesiology Discharge Order Discharge Order Patient is doing well, no complaints, stable vital signs, no apparent adverse anesthesia problems. No complications reported per nursing. CHRIS CHAPIN CRNA Aug 08, 2021 14:06
--- NOTE | 2021-08-08 15:07 | OPERATIVE REPORT ---
DATE OF SERVICE: 08/08/2021 PREOPERATIVE DIAGNOSES: Abdominal pain, bloating, and screening colonoscopy. POSTOPERATIVE DIAGNOSES: Gastritis, colon polyps, and diverticulosis. PROCEDURES PERFORMED: EGD with biopsies and colonoscopy with hot biopsy polypectomy x6. SURGEON: Rich Lyle DO. ANESTHESIA: Per WATERSHED COORDINATOR. ESTIMATED BLOOD LOSS: None. COMPLICATIONS: None. INDICATIONS FOR PROCEDURE: The patient is a 61-year-old female with abdominal pain, bloating and needing screening colonoscopy. She understands the risks and benefits of the procedure and wishes to proceed. Consent was signed in the chart. DESCRIPTION OF PROCEDURE: The patient was taken to the endoscopy suite and placed in the left lateral recumbent position. Timeout was performed. Scope was inserted in mouth, down the esophagus, stomach and into the duodenum without difficulty. There were no polyps, masses or ulcerations within the duodenum. Scope was slowly retracted back into the stomach, where it was further insufflated. Changes of gastritis were present and biopsy of the antrum was obtained. Scope was retroflexed noting no other pathology. Scope was then slowly retracted back to the distal esophagus. Biopsy of the GE junction was obtained. No polyps, masses or ulcerations. Scope was slowly retracted back until completely removed. The patient tolerated the procedure well without any complications. Digital rectal exam was performed. No palpable polyps, masses or ulcerations. Scope was inserted in the rectum and advanced all the way to cecum with minimal difficulty. Prep was adequate. Scope was then slowly retracted back. No polyps, masses or ulcerations within the cecum. In the ascending colon, a small polyp was present, which hot biopsy polypectomy was performed. Scope was continuously and slowly retracted back in transverse colon, where another polyp was present, which hot biopsy polypectomy was performed. Scope was then slowly retracted back into the descending colon, where two polyps were present, which hot biopsy polypectomy was performed. Scope was continuously and slowly retracted in the sigmoid colon, where two polyps were present, which hot biopsy polypectomy was performed. Also, a minimal amount of diverticulosis present. Once in the rectum, scope was retroflexed noting no other pathology. Scope was returned to its normal position, slowly withdrawn until completely removed. The patient tolerated the procedure well without any complications. She was taken to recovery room in stable condition. RECOMMENDATIONS: The patient was started on Protonix 40 mg daily. She will need a repeat colonoscopy in five years unless any changes before that. The patient will follow up in two weeks to see how her symptoms are doing. Job ID: [id number] DocumentID: [id number] Dictated Date: 08/08/2021 10:47:36 Pig Sticker Date: 08/08/2021 15:06:07 Dictated By: RICH LYLE DO
== END 2021-08-08 11:35 | disposition home or self-care (01) ==
LOC: ENDO 08:53
PROVIDERS: ATTEND Surgery
DX: Z12.11 Encounter for screening for malignant neoplasm of colon (principal); K29.50 Unspecified chronic gastritis without bleeding; K31.89 Other diseases of stomach and duodenum; K20.90 Esophagitis, unspecified without bleeding; D12.2 Benign neoplasm of ascending colon; D12.3 Benign neoplasm of transverse colon; K63.5 Polyp of colon; K57.30 Diverticulosis of large intestine without perforation or abscess without bleeding; Z87.891 Personal history of nicotine dependence; Z79.899 Other long term (current) drug therapy; Z79.01 Long term (current) use of anticoagulants
CPT/HCPCS: 88305; 88342

== ENCOUNTER 2021-08-10 21:02 | Emergency (ER) | payer MEDICAID ==
[~2021-08-10] VITALS: Ht 158 cm; Wt 99.7 kg
[~2021-08-10 21:02] MED LIST changes: +PANT40TA2 PO
[2021-08-10 21:42] LABS: BASOPHILS % (AUTO) 0 % (0-10); EOSINOPHILS # (AUTO) 0.4 10^3/uL (0.0-0.3); EOSINOPHILS % (AUTO) 5 % (0-10); HEMATOCRIT 40 % (35-52); HEMOGLOBIN 13.2 g/dL (11.5-16.0); LYMPHOCYTES # (AUTO) 3.8 10^3/uL (1.0-4.0); LYMPHOCYTES % (AUTO) 46 % (12-44); MEAN CORPUSCULAR HEMOGLOBIN 30 pg (25-34); MEAN CORPUSCULAR HGB CONC 33 g/dL (32-36); MEAN CORPUSCULAR VOLUME 92 fL (80-99); MEAN PLATELET VOLUME 9.5 fL (9.0-12.2); MONOCYTES # (AUTO) 0.6 10^3/uL (0.0-1.0); MONOCYTES % (AUTO) 8 % (0-12); NEUTROPHILS # (AUTO) 3.4 10^3/uL (1.8-7.8); NEUTROPHILS % (AUTO) 42 % (42-75); PLATELET COUNT 254 10^3/uL (130-400); WHITE BLOOD COUNT 8.2 10^3/uL (4.3-11.0)
--- NOTE | 2021-08-10 21:42 | ED Chest Pain ---
General Chief Complaint: Cardiac/General Problems Stated Complaint: LOW BP, HEAVY CHEST, DOSEN'T FEEL RIGHT Nursing Triage Note: pt ambulatory to room with pt fiance. pt states at 1530 today, out of nowhere, she became lightheaded, got a headache, and felt a heaviness in her chest. pt states she took tylenol around 1930 for her headache, without any relief. pt states she still has a 7/10 headache on arrival, and that her chest still feels heavy Source: patient, other Exam Limitations: no limitations History of Present Illness Date Seen by Provider: Aug 10, 2021 Time Seen by Provider: 21:25 Initial Comments The patient presents to the ER by private conveyance with her significant other and chief complaint that this afternoon about 3:00 she started having some chest tightness about 6-1/2 out of 10 across her entire chest. She had a heart cath couple years ago by Dr. Martínez and has a had an echocardiogram and discovered she had heart failure and as well as had to have a pacemaker placed for bradycardia. She is never used recreational drugs. She quit smoking 2 years ago. She has had a nonproductive loose cough but no fevers or chills. No nausea or vomiting. She had a headache today and took 1000 mg of Tylenol at 730, 2 hours prior to arrival. She describes her chest tightness as a heaviness. She has not taken any nitroglycerin. She does not take aspirin but she is on Eliquis with a history of atrial fibrillation. She is known to [facility] and recently had a colonoscopy/EGD and was told by Dr. Harrington that she was coughing a lot throughout the procedure couple days ago. While at home she took her blood pressure and noted it to be 80/50. She says she felt lightheaded but no syncope . She has had some exertional dyspnea. She does not do daily weights and has not noticed any significant change in her weight in the past couple weeks. No increased edema around her midsection or extremities. She continues to take the same dose of Lasix with good results. She does not have any significant family coronary disease, nor diabetes but she does have hypertension and hyperlipidemia. Her EGD did recognize gastritis and she was put on pantoprazole. Echocardiogram by Dr. Martínez June 2021, 1 month ago demonstrating an EF of 50 to 55% with grade 1 diastolic dysfunction. Mild concentric hypertrophy. Echocardiogram from 2020 demonstrated an EF of 40 to 45% with mild diffuse hypokinesis. Cardiac catheterization [address] Robbins after an echocardiogram demonstrated an EF of 25% the patient was taken to [facility] and had mild coronary disease but no ischemic cardiomyopathy. She also had a coronary catheterization in [address] Hardy demonstrating an EF of 50 to 55% and angiographically minor co ronary artery disease. Allergies and Home Medications Allergies Coded Allergies: morphine (Unverified Allergy, Mild, 03/20/20) Patient Home Medication List Home Medication List Reviewed: Yes Acetaminophen (Tylenol Extra Strength) 500 Mg Tablet, 1,000 MG PO Q8H PRN for PAIN-MILD (1-4), (Reported) Entered as Reported by: SPENCER HATHAWAY on 03/04/20 1012 Apixaban (Eliquis) 5 Mg Tablet, 5 MG PO BID, (Reported) Entered as Reported by: CHRISTINA FUENTES on 07/25/20 111 Atorvastatin Calcium (Atorvastatin Calcium) 20 Mg Tablet, 20 MG PO DAILY, (Reported) Entered as Reported by: JOSE HERNANDEZ on 07/20/21 0916 Cetirizine HCl (Cetirizine HCl) 10 Mg Tablet, 10 MG PO DAILY, (Reported) Entered as Reported by: JOSE HERNANDEZ on 07/20/21 09 Cholecalciferol (Vitamin D3) (D3-50) 1,250 Mcg Capsule, 1,250 MCG PO DAILY, (Reported) Entered as Reported by: JOSE HERNANDEZ on 07/20/21 09 Fluticasone Propionate (Fluticasone Propionate) 15.8 Ml [place].susp, 15.8 ML NS DAILY, (Reported) Entered as Reported by: JOSE HERNANDEZ on 07/20/21 0916 Furosemide (Furosemide) 20 Mg Tablet, 20 MG PO DAILY, (Reported) Entered as Reported by: CHRISTINA FUENTES on 07/25/20 111 Lisinopril (Lisinopril) 10 Mg Tablet, 20 MG PO DAILY, (Reported) Entered as Reported by: CHRISTINA FUENTES on 07/25/20 1116 Metoprolol Succinate (Toprol Xl) 50 Mg Tab.er.24h, 50 MG PO DAILY Prescribed by: MARLEEN MARTÍNEZ on 11/24/20 0715 [place]-3/Dha/Epa/Fish Oil (Fish Oil 1,000 mg Softgel) 1 Each Capsule, 3 EACH PO DAILY, (Reported) Entered as Reported by: PENNIE BOOTH on 11/23/20 1218 Ondansetron (Ondansetron Odt) 4 Mg Tab.rapdis, 4 MG SL Q4H PRN for NAUSEA/VOMITING Prescribed by: TURNER JUSTICE on 04/24/21 2336 Pantoprazole Sodium (Protonix) 40 Mg Tablet.dr, 40 MG PO DAILY Prescribed by: RICH HARRINGTON on 08/08/21 1047 Potassium Chloride (Potassium Chloride) 20 Meq Tablet.er, 20 MEQ PO DAILY, (Reported) Entered as Reported by: PENNIE BOOTH on 11/23/20 1218 Simethicone (Simethicone) 80 Mg Tab.chew, 80 MG PO PRN, (Reported) Entered as Reported by: JOSE HERNANDEZ on 07/20/21 0916 Review of Systems Review of Systems Constitutional: No chills, No diaphoresis EENTM: No Blurred Vision, No Double Vision Respiratory: Cough, Shortness of Air, SOA With Exertion Cardiovascular: Chest Pain; Denies Lightheadedness Gastrointestinal: Denies Abdominal Pain, Denies Constipated, Denies Diarrhea, Denies Nausea Genitourinary: Denies Burning, Denies Discharge Musculoskeletal: No back pain, No joint pain Skin: No pruritus, No rash Psychiatric/Neurological: Headache; Denies Numbness All Other Systems Reviewed Negative Unless Noted: Yes Past Nfgrocx-Kaycho-Fcejss Hx Patient Social History Tobacco Use?: No Tobacco type used: Cigarettes Smoking Status: Former Smoker (Quit 2 years ago) Use of E-Cig and/or Vaping dev: No Substance use?: No Immunizations Up To Date Tetanus Booster (TDap): Unknown PED Vaccines UTD: Yes Influenza Vaccine Up-to-Date: Yes; Up-to-Date First/Initial COVID19 Vaccinat: JULY 2020 Second COVID19 Vaccination [place]: AUGUST 2020 Third COVID19 Vaccination Date: NO Seasonal Allergies Seasonal Allergies: Yes Past Medical History Surgery/Hospitalization HX: T/A, THRYOID, MARVEL, , HERNIA, CHF, GRAVES DX, ARTHRITIS Surgeries: Yes (OPEN CHOLECYSTECTOMY; HIATAL HERNIA REPAIR) Abdominal, Adenoidectomy, Section, Gallbladder, Pacemaker, Thyroidectomy, Tonsillectomy Respiratory: Yes Asthma, Chronic Bronchitis Currently Using CPAP: No Currently Using BIPAP: No Cardiac: Yes (BRADYCARDIA, CHF) Atrial Fibrillation, Hypertension, Palpitations Neurological: Yes Headaches /Migraines, TIA [employer] History: Menopausal Genitourinary: No Gastrointestinal: Yes Gastroesophageal Reflux, Hiatal Hernia Musculoskeletal: Yes Arthritis Endocrine: Yes (hx thyoidectomy) Hypothyroidsim HEENT: No Cancer: No Psychosocial: Yes Depression Integumentary: No Blood Disorders: No Family Medical History Arthritis G8 SISTER son daughter Cardiovascular disease 19 FATHER Congenital heart disease Diabetes mellitus 19 MOTHER Headache disorder G8 SISTER son daughter Hypertension 19 MOTHER G8 SISTER Myocardial infarction 19 FATHER Neoplasm 19 FATHER 19 MOTHER Seizure disorder son Thyroid disease G8 SISTER Heart Disease Physical Exam Vital Signs Vital Signs - First Documented 08/10/21 21:08 Temp 36.5 Pulse 69 Resp 18 B/P (MAP) 145/65 (91) Pulse Ox 97 Capillary Refill : Height, Weight, BMI Height: '" Weight: lbs. oz. kg; 39.00 BMI Method: General Appearance: No Apparent Distress, WD/WN, Anxious HEENT: PERRL/EOMI, Pharynx Normal, Moist Mucous Membranes Neck: Full Range of Motion, Normal Inspection Respiratory: Lungs Clear, Normal Breath Sounds, No Accessory Muscle Use, No Respiratory Distress, Rhonci (Left worse than right) Cardiovascular: Regular Rate, Rhythm, No Edema, Normal Peripheral Pulses Gastrointestinal: Normal Bowel Sounds, Non Tender, Soft Extremity: Normal Capillary Refill, Normal Inspection, No Pedal Edema Neurologic/Psychiatric: Alert, Oriented x3 Skin: Normal Color, Warm/Dry Progress/Results/Core Measures Results/Orders Lab Results Laboratory Tests Test 08/10/21 21:21 08/10/21 23:50 Range/Units White Blood Count 8.2 4.3-11.0 10^3/uL Red Blood Count 4.36 3.80-5.11 10^6/uL Hemoglobin 13.2 11.5-16.0 g/dL Hematocrit 40 35-52 % Mean Corpuscular Volume 92 80-99 fL Mean Corpuscular Hemoglobin 30 25-34 pg Mean Corpuscular Hemoglobin Concent 33 32-36 g/dL Red Cell Distribution Width 12.6 10.0-14.5 % Platelet Count 254 130-400 10^3/uL Mean Platelet Volume 9.5 9.0-12.2 fL Immature Granulocyte % (Auto) 0 % Neutrophils (%) (Auto) 42 42-75 % Lymphocytes (%) (Auto) 46 H 12-44 % Monocytes (%) (Auto) 8 0-12 % Eosinophils (%) (Auto) 5 0-10 % Basophils (%) (Auto) 0 0-10 % Neutrophils # (Auto) 3.4 1.8-7.8 10^3/uL Lymphocytes # (Auto) 3.8 1.0-4.0 10^3/uL Monocytes # (Auto) 0.6 0.0-1.0 10^3/uL Eosinophils # (Auto) 0.4 H 0.0-0.3 10^3/uL Basophils # (Auto) 0.0 0.0-0.1 10^3/uL Immature Granulocyte # (Auto) 0.0 0.0-0.1 10^3/uL Prothrombin Time 13.7 12.2-14.7 SEC INR Comment 1.0 0.8-1.4 Activated Partial Thromboplast Time 41 H 24-35 SEC D-Dimer 0.12 0.00-0.49 UG/ML Sodium Level 138 135-145 MMOL/L Potassium Level 3.8 3.6-5.0 MMOL/L Chloride Level 104 98-107 MMOL/L Carbon Dioxide Level 18 L 21-32 MMOL/L Anion Gap 16 H 5-14 MMOL/L Blood Urea Nitrogen 25 H 7-18 MG/DL Creatinine 1.20 0.60-1.30 MG/DL Estimat Glomerular Filtration Rate 52 BUN/Creatinine Ratio 21 Glucose Level 118 H 70-105 MG/DL Calcium Level 9.2 8.5-10.1 MG/DL Corrected Calcium 9.2 8.5-10.1 MG/DL Magnesium Level 1.9 1.6-2.4 MG/DL Total Bilirubin 0.3 0.1-1.0 MG/DL Aspartate Amino Transf (AST/SGOT) 14 5-34 U/L Alanine Aminotransferase (ALT/SGPT) 16 0-55 U/L Alkaline Phosphatase 87 40-136 U/L Myoglobin 35.7 10.0-92.0 NG/ML Troponin I < 0.028 < 0.028 <0.028 NG/ML B-Type Natriuretic Peptide < 10.0 <100.0 PG/ML Total Protein 7.1 6.4-8.2 GM/DL Albumin 4.0 3.2-4.5 GM/DL My Orders Orders - CASANDRA SALES Ekg Tracing (08/10/21 21:11) Ekg Tracing (08/10/21 21:12) Cbc With Automated Diff (08/10/21 21:36) Magnesium (08/10/21 21:36) Chest 1 View, Ap/Pa Only (08/10/21 21:36) Comprehensive Metabolic Panel (08/10/21 21:36) Myoglobin Serum (08/10/21 21:36) Protime With Inr (08/10/21 21:36) Partial Thromboplastin Time (08/10/21 21:36) O2 (08/10/21 21:36) Monitor-Rhythm Ecg Trace Only (08/10/21 21:36) Lipid Panel (08/11/21 06:00) Ed Iv/Invasive Line Start (08/10/21 21:36) Bnp [place] (08/10/21 21:36) Fibrin Degradation Products (08/10/21 21:36) Troponin I [place] (08/10/21 21:36) Nitroglycerin 0.4 Mg Btl 25's (Nitrostat (08/10/21 21:45) Aspirin Chewable Tablet (Baby Aspirin Ch (08/10/21 21:45) Orthostatic Vital Signs (Adult (08/10/21 22:05) Troponin I [place] (08/10/21 23:59) Lidocaine 2% Viscous 15 Ml (Xylocaine Vi (08/10/21 23:15) Antacid Suspension (Mylanta Suspension (08/10/21 23:15) Famotidine Injection (Pepcid Injection) (08/10/21 23:01) Fentanyl Inj (Sublimaze Injection) (08/11/21 01:15) Medications Given in ED Current Medications Medications Dose Ordered Sig/Sigrid Route Start Time Stop Time Status Last Admin Dose Admin Al Hydrox/Mg Hydrox/Simethicone 30 ml ONCE ONCE PO 08/10/21 23:15 08/10/21 23:16 DC 08/10/21 23:07 30 ML Aspirin 324 mg ONCE ONCE PO 08/10/21 21:45 08/10/21 21:46 DC 08/10/21 21:48 324 MG Fentanyl Citrate 50 mcg ONCE ONCE IVP 08/11/21 01:15 08/11/21 01:16 DC 08/11/21 01:26 50 MCG Lidocaine HCl 15 ml ONCE ONCE PO 08/10/21 23:15 08/10/21 23:16 DC 08/10/21 23:07 15 ML Nitroglycerin 0.4 mg UD PRN SL 08/10/21 21:45 08/10/21 21:48 0.4 MG Vital Signs/I&O 08/10/21 08/10/21 21:08 22:10 Temp 36.5 Pulse 69 60 61 61 Resp 18 B/P (MAP) 145/65 (91) 123/65 (84) 124/74 (91) 122/73 (89) Pulse Ox 97 Blood Pressure Mean: 91 Progress Progress Note #1: Time: 21:40 Progress Note She claims low blood pressure and lightheadedness so we will get orthostatic vital signs, EKG give her some aspirin and nitroglycerin. She comes in with blood pressure 140s over 70s and continues to have blood pressure similar to this. It is possible she could be having some heart failure although she does not have crackles audible on her lung sounds. Another possibility is pneumonia especially with her recent EGD she could have had a small microaspiration. She also may have had pneumonia prior to her scopes. Otherwise her vital signs are unremarkable with good oxygenation and a heart rate in the 60s. No new changes seen on EKG. She has not had any changes in her coronary angiogram in the previous 14 years with her last coronary catheterization 2 years ago. She does have some significant recovered ejection fraction heart failure but does not seem to be having any edema or weight gain. Progress Note #2: Time: 22:52 Progress Note Orthostats are unremarkable. Nitroglycerin did nothing for her pain. Her BUN is a little bit up and this could be a line dehydration. Her states he made her drink some juice and that helped her symptoms. We are going to give her a GI cocktail and some oral fluids. Progress Note #3: Time: 01:27 Progress Note GI cocktail did nothing for her discomfort. Nitroglycerin only made her headache worse. She only has mild coronary disease on her heart catheter 2 years ago. This has not progressed from the heart cath from over a decade prior to that. Maybe this is chest wall maybe this is related to her EGD 2 days ago. We can give her some fentanyl and if this makes her pain better we will let her go home follow-up outpatient with cardiology and if they agree there is nothing cardiac related she can follow-up with primary care. Do not find any evidence of widened mediastinum, pneumomediastinum or other dangerous, emergent reasons for her chest discomfort. She says is less pain and just more tightness and still rates it as a 6-1/2 to 7 out of 10. Progress Note #4: Time: 01:41 Progress Note Pain is gone with the fentanyl. We will let her follow-up with cardiology followed by general surgery and/or primary care if she gets the blessing from them. Initial ECG Impression Date: Aug 10, 2021 Initial ECG Impression Time: 21:15 Initial ECG Rate: 68 Initial ECG Rhythm: Normal Sinus Initial ECG Intervals: Normal Initial ECG Impression: Normal Comment Normal sinus rhythm without clinically relevant ST elevation or depression. Perhaps a half block of ST elevation in aVR lead and may be half a block of ST depression in lead V5 and V6. Diagnostic Imaging Diagonstic Imaging: Xray Plain Films/CT/US/NM/MRI: chest Comments [facility], [place] NAME: CALEB WHYTE [facility] REC#: [id number] PT STATUS: REG ER : 1960 PHYSICIAN: CASANDRA SALES MD ADMIT DATE: 08/10/21/ER Signed Date of Exam:08/10/21 CHEST 1 VIEW, AP/PA ONLY EXAMINATION: Chest radiograph, portable AP view. DATE: 08/10/2021 9:46 PM INDICATION: 61-year-old female, lightheaded. COMPARISON: Chest radiographs April 24, 2021. FINDINGS: There is a left-sided cardiac assist device with leads. The leads appear intact. Heart size and mediastinal contours are unchanged. There is no identified pneumothorax. There is no large pleural effusion. There is no identified focal airspace consolidation. IMPRESSION: No identified acute cardiopulmonary abnormality. Dictated by: Dictated on workstation # [id number] Dict: 08/10/[id number] Trans: 08/10/212202 [facility] [id number] Interpreted by: ELSIE GONZALEZ MD Electronically signed by: ELSIE GONZALEZ MD 08/10/212202 Reviewed: Reviewed by Me Departure Impression Primary Impression: Chest pain Qualified Codes: R07.9 - Chest pain, unspecified Disposition: HOME, SELF-CARE Condition: Stable Departure-Patient Inst. Decision time for Depature: 01:42 Referrals: [facility] [place] ([place]P/Family) Primary Care Physician Patient Instructions: Chest Pain (DC) Add. Discharge Instructions: Call Dr. Martínez and follow-up next week. If he agrees that this is not related to your heart and you can also talk to Dr. Harirngton and/or your primary care doctor about other alternative explanations for your symptoms. Continue taking your antiacid medications. Return to the ER for intractable pain, shortness of air or other worrisome symptoms. All discharge instructions reviewed with patient and/or family. Voiced understanding. Copy Copies To 1: RICH HARRINGTON DO; MARLEEN MARTÍNEZ MD, TITUS J Aug 10, 2021 21:42
[2021-08-10] MEDS ORDERED: NITROGLYCERIN 0.4 MG SL TABS BTL 25'S SL PRN (21:45)
[2021-08-10] MEDS ORDERED: ASPIRIN 81 MG CHEW (CHILDREN'S ASA) PO ONE (21:45)
[2021-08-10 21:51] LABS: POTASSIUM 3.8 MMOL/L (3.6-5.0); PROTHROMBIN TIME PATIENT 13.7 SEC (12.2-14.7)
[2021-08-10 21:52] LABS: CALCIUM 9.2 MG/DL (8.5-10.1)
[2021-08-10 21:54] LABS: TOTAL PROTEIN 7.1 GM/DL (6.4-8.2)
[2021-08-10 21:55] LABS: BILIRUBIN,TOTAL 0.3 MG/DL (0.1-1.0)
[2021-08-10 21:57] LABS: CREATININE SERUM 1.2 MG/DL (0.60-1.30)
[2021-08-10 22:00] LABS: MAGNESIUM 1.9 MG/DL (1.6-2.4)
--- NOTE | 2021-08-10 22:00 | Diagnostic Imaging Report ---
EXAMINATION: Chest radiograph, portable AP view. DATE: 08/10/2021 9:46 PM INDICATION: 61-year-old female, lightheaded. COMPARISON: Chest radiographs April 24, 2021. FINDINGS: There is a left-sided cardiac assist device with leads. The leads appear intact. Heart size and mediastinal contours are unchanged. There is no identified pneumothorax. There is no large pleural effusion. There is no identified focal airspace consolidation. IMPRESSION: No identified acute cardiopulmonary abnormality. Dictated by: Dictated on workstation # [id number]
[2021-08-10 22:10] VITALS: BP_SYST 122; BP_SYST 123; BP_SYST 124; BP_DIAS 65; BP_DIAS 73; BP_DIAS 74
[2021-08-10] MEDS ORDERED: FAMOTIDINE 20MG/2ML IV (PEPCID) IV STA (23:01)
[2021-08-10] MEDS ORDERED: LIDOCAINE 2% VISCOUS 15 ML UDC PO ONE (23:15)
[2021-08-10] MEDS ORDERED: ANTACID SUSP 30 ML UDC (MYLANTA) PO ONE (23:15)
[2021-08-11] MEDS ORDERED: fentaNYL INJ 100 MCG/2 ML AMP IVP ONE (01:15)
[2021-08-11 01:49] VITALS: BP 121/80
== END 2021-08-11 01:55 | disposition home or self-care (01) ==
LOC: EDUNIT# 21:02 → ER 21:05
DX: R07.89 Other chest pain (principal); I11.0 Hypertensive heart disease with heart failure; I50.9 Heart failure, unspecified; I48.91 Unspecified atrial fibrillation; Z86.79 Personal history of other diseases of the circulatory system; Z87.891 Personal history of nicotine dependence; Z79.01 Long term (current) use of anticoagulants
CPT/HCPCS: 36415; 71045; 80053; 83735; 83874; 83880; 84484; 85025; 85379; 85610; 85730; 93005; 93041

== ENCOUNTER 2021-09-14 17:51 | Observation (INO) | payer MEDICAID ==
[~2021-09-14] VITALS: Ht 160 cm; Wt 102.0 kg
[2021-09-14] VITALS (13 sets, daily range): BP systolic 91–145; BP diastolic 42–108
[2021-09-14] MEDS ORDERED: ASPIRIN 81 MG CHEW (CHILDREN'S ASA) PO ONE (18:30)
[2021-09-14] MEDS ORDERED: NITROGLYCERIN 0.4 MG SL TABS BTL 25'S SL PRN ×2 (18:30→20:15)
[2021-09-14 18:37] LABS: BASOPHILS % (AUTO) 1 % (0-10); EOSINOPHILS # (AUTO) 0.3 10^3/uL (0.0-0.3); EOSINOPHILS % (AUTO) 4 % (0-10); HEMATOCRIT 43 % (35-52); LYMPHOCYTES # (AUTO) 3.1 10^3/uL (1.0-4.0); LYMPHOCYTES % (AUTO) 41 % (12-44); MEAN CORPUSCULAR HEMOGLOBIN 30 pg (25-34); MEAN CORPUSCULAR HGB CONC 32 g/dL (32-36); MEAN CORPUSCULAR VOLUME 92 fL (80-99); MONOCYTES # (AUTO) 0.6 10^3/uL (0.0-1.0); MONOCYTES % (AUTO) 8 % (0-12); NEUTROPHILS # (AUTO) 3.4 10^3/uL (1.8-7.8); NEUTROPHILS % (AUTO) 46 % (42-75); PLATELET COUNT 259 10^3/uL (130-400); WHITE BLOOD COUNT 7.4 10^3/uL (4.3-11.0)
[2021-09-14 18:42] LABS: ALBUMIN 4.2 GM/DL (3.2-4.5); POTASSIUM 3.8 MMOL/L (3.6-5.0)
[2021-09-14 18:44] LABS: CALCIUM 8.9 MG/DL (8.5-10.1)
[2021-09-14 18:45] LABS: TOTAL PROTEIN 7.2 GM/DL (6.4-8.2)
[2021-09-14 18:46] LABS: BILIRUBIN,TOTAL 0.5 MG/DL (0.1-1.0)
--- NOTE | 2021-09-14 18:47 | ED Chest Pain ---
General Chief Complaint: Respiratory Problems Stated Complaint: SOB, CHEST TIGHTNESS Nursing Triage Note: PT AMBULATORY TO ER, REPORTS ONSET OF SOB AND CHEST TIGHTNESS THIS AM. PT REPORTS HAS BEEN HAVING ISSUES WTIH HER BP THE LAST FEW WEEKS, HAD OUTPATIENT RENAL PANEL PERFORMED EARLIER TODAY. PT REPORTS WENT TO THE CLINIC THIS AM, EKG PERFORMED AND PT INSTRUCTED TO F/U WITH ER. Source: patient Exam Limitations: no limitations History of Present Illness Date Seen by Provider: Sep 14, 2021 Time Seen by Provider: 18:26 Initial Comments Patient to the ER by private conveyance from the [facility] walk-in clinic with chief complaint she been having some lightheaded feeling since about 10:00 this morning, 8 hours prior to arrival. In about 1530, 3 hours prior to arrival in the ER she began to experience some tightness and pressure like her chest was being compressed right and substernal region anteriorly. Does not radiate and she does not scribed as a pain but rates it as a 6 or 7 out of 10 even while at rest. Not made worse by laying flat. No increase edema in her legs. She has a history of congestive heart failure discovered when she got COVID and ended up with a pacemaker/defibrillator implanted. She follows with Dr. Martínez who is setting her up next week for a cardiac stress test. She has never had a heart attack nor has she had stents or cardiac surgery that she is aware of. She is on Eliquis and has not felt any palpitations or kicks in her chest. She feels short of breath even while at rest but worse with exertion. She is on 10 mg Lasix daily and has not noticed increased swelling in her hands or feet. She quit smoking over 2 years ago when she was discovered to have heart failure. She does take medicines for blood pressure, hyperlipidemia and does not have a history of diabetes but she does have Graves' disease. No primary familial early onset coronary disease. She has not taken any aspirin. She is followed by Spencer Guerra for primary care. She does have gastritis seen on recent EGD from a few months ago and was started on pantoprazole. Echocardiogram from a year ago demonstrated an EF of 40 to 45% with mild diffuse hypokinesis. Echocardiogram from June couple months ago demonstrated an EF of 50 to 55% with grade 1 diastolic dysfunction and mild concentric hypertrophy. Cardiac catheterization [address] Robbins demonstrated an EF of 25% but the catheterization did failed to discover any ischemic cardiomyopathy. She also had a coronary catheterization in [address] Hardy with an EF of 50% and angiographically minor coronary artery disease. Allergies and Home Medications Allergies Coded Allergies: morphine (Unverified Allergy, Mild, 03/20/20) Patient Home Medication List Home Medication List Reviewed: Yes Acetaminophen (Tylenol Extra Strength) 500 Mg Tablet, 1,000 MG PO Q8H PRN for PAIN-MILD (1-4), (Reported) Entered as Reported by: SPENCER HATHAWAY on 03/04/20 1012 Apixaban (Eliquis) 5 Mg Tablet, 5 MG PO BID, (Reported) Entered as Reported by: CHRISTINA FUENTES on 07/25/20 1116 Atorvastatin Calcium (Atorvastatin Calcium) 20 Mg Tablet, 20 MG PO DAILY, (Reported) Entered as Reported by: JOSE HERNANDEZ on 07/20/21 0916 Cetirizine HCl (Cetirizine HCl) 10 Mg Tablet, 10 MG PO DAILY, (Reported) Entered as Reported by: JOSE HERNANDEZ on 07/20/21 0916 Cholecalciferol (Vitamin D3) (D3-50) 1,250 Mcg Capsule, 1,250 MCG PO DAILY, (Reported) Entered as Reported by: JOSE HERNANDEZ on 07/20/21 0916 Fluticasone Propionate (Fluticasone Propionate) 15.8 Ml [place].susp, 15.8 ML NS DAILY, (Reported) Entered as Reported by: JOSE HERNANDEZ on 07/20/21 0916 Furosemide (Furosemide) 20 Mg Tablet, 20 MG PO DAILY, (Reported) Entered as Reported by: CHRISTINA FUENTES on 07/25/20 1116 Lisinopril (Lisinopril) 10 Mg Tablet, 20 MG PO DAILY, (Reported) Entered as Reported by: CHRISTINA FUENTES on 07/25/20 1116 Metoprolol Succinate (Toprol Xl) 50 Mg Tab.er.24h, 50 MG PO DAILY Prescribed by: MARLEEN MARTÍNEZ on 11/24/20 0715 [place]-3/Dha/Epa/Fish Oil (Fish Oil 1,000 mg Softgel) 1 Each Capsule, 3 EACH PO DAILY, (Reported) Entered as Reported by: PENNIE BOOTH on 11/23/20 1218 Ondansetron (Ondansetron Odt) 4 Mg Tab.rapdis, 4 MG SL Q4H PRN for NAUSEA/VOMIT ING Prescribed by: TURNER JUSTICE on 04/24/21 2336 Pantoprazole Sodium (Protonix) 40 Mg Tablet.dr, 40 MG PO DAILY Prescribed by: RICH HARRINGTON on 08/08/21 1047 Potassium Chloride (Potassium Chloride) 20 Meq Tablet.er, 20 MEQ PO DAILY, (Reported) Entered as Reported by: PENNIE BOOTH on 11/23/20 1218 Simethicone (Simethicone) 80 Mg Tab.chew, 80 MG PO PRN, (Reported) Entered as Reported by: JOSE HERNANDEZ on 07/20/21 0916 Review of Systems Review of Systems Constitutional: No chills, No diaphoresis EENTM: No Blurred Vision, No Double Vision Respiratory: Denies Cough; Shortness of Air, SOA With Exertion, SOA at Rest; Denies Wheezing Cardiovascular: See HPI, Chest Pain (Chest pressure/tightness); Denies Edema, Denies Irregular Heart Rate; Lightheadedness; Denies Palpitations, Denies S yncope Gastrointestinal: Denies Abdomen Distended, Denies Abdominal Pain, Denies Diarrhea, Denies Nausea Genitourinary: Denies Burning, Denies Discharge Musculoskeletal: No back pain, No joint pain Past Eongpnu-Qudnzm-Tnnpuf Hx Patient Social History Tobacco Use?: No Smoking Status: Former Smoker Use of E-Cig and/or Vaping dev: No Substance use?: No Alcohol Use?: No Pt feels they are or have been: No Immunizations Up To Date Tetanus Booster (TDap): Unknown PED Vaccines UTD: Yes First/Initial COVID19 Vaccinat: RECEIVED, UNK WHEN Second COVID19 Vaccination [place]: RECEIVED, UNK WHEN Third COVID19 Vaccination Date: NO 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[employer] Seasonal Allergies Seasonal Allergies: Yes Past Medical History Surgery/Hospitalization HX: T/A, THRYOID, MARVEL, , HERNIA, CHF, GRAVES DX, ARTHRITIS Surgeries: Yes (OPEN CHOLECYSTECTOMY; HIATAL HERNIA REPAIR) Abdominal, Adenoidectomy, Section, Gallbladder, Pacemaker, Thyroid ectomy, Tonsillectomy Respiratory: Yes Asthma, Chronic Bronchitis Currently Using CPAP: No Currently Using BIPAP: No Cardiac: Yes (BRADYCARDIA, CHF) Atrial Fibrillation, Hypertension, Palpitations Neurological: Yes Headaches /Migraines, 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 Genitourinary: No Gastrointestinal: Yes Gastroesophageal Reflux, Hiatal Hernia Musculoskeletal: Yes Arthritis Endocrine: Yes (hx thyoidectomy) Hypothyroidsim HEENT: No Cancer: No Psychosocial: Yes Depression Integumentary: No Blood Disorders: No Family Medical History Arthritis G8 SISTER son daughter Cardiovascular disease 19 FATHER Congenital heart disease Diabetes mellitus 19 MOTHER Headache disorder G8 SISTER son daughter Hypertension 19 MOTHER G8 SISTER Myocardial infarction 19 FATHER Neoplasm 19 FATHER 19 MOTHER Seizure disorder son Thyroid disease G8 SISTER Heart Disease Physical Exam Vital Signs Vital Signs - First Documented 09/14/21 17:56 Temp 35.7 Pulse 75 Resp 20 B/P (MAP) 142/89 (106) Pulse Ox 95 O2 Delivery Room Air Capillary Refill : Height, Weight, BMI Height: '" Weight: lbs. oz. kg; 39.00 BMI Method: General Appearance: No Apparent Distress, WD/WN HEENT: PERRL/EOMI, TMs Normal Neck: Full Range of Motion, Normal Inspection Respiratory: Chest Non Tender, Lungs Clear, Normal Breath Sounds, No Accessory Muscle Use, No Respiratory Distress Cardiovascular: Regular Rate, Rhythm, No Edema, No Murmur, Normal Peripheral Pulses Gastrointestinal: Normal Bowel Sounds, Non Tender, Soft Extremity: Normal Capillary Refill, Normal Inspection Neurologic/Psychiatric: Alert, Oriented x3, No Motor/Sensory Deficits Skin: Normal Color, Warm/Dry Progress/Results/Core Measures Results/Orders Lab Results Laboratory Tests Test 09/14/21 18:05 Range/Units White Blood Count 7.4 4.3-11.0 10^3/uL Red Blood Count 4.69 3.80-5.11 10^6/uL Hemoglobin 14.0 11.5-16.0 g/dL Hematocrit 43 35-52 % Mean Corpuscular Volume 92 80-99 fL Mean Corpuscular Hemoglobin 30 25-34 pg Mean Corpuscular Hemoglobin Concent 32 32-36 g/dL Red Cell Distribution Width 12.7 10.0-14.5 % Platelet Count 259 130-400 10^3/uL Mean Platelet Volume 10.0 9.0-12.2 fL Immature Granulocyte % (Auto) 0 % Neutrophils (%) (Auto) 46 42-75 % Lymphocytes (%) (Auto) 41 12-44 % Monocytes (%) (Auto) 8 0-12 % Eosinophils (%) (Auto) 4 0-10 % Basophils (%) (Auto) 1 0-10 % Neutrophils # (Auto) 3.4 1.8-7.8 10^3/uL Lymphocytes # (Auto) 3.1 1.0-4.0 10^3/uL Monocytes # (Auto) 0.6 0.0-1.0 10^3/uL Eosinophils # (Auto) 0.3 0.0-0.3 10^3/uL Basophils # (Auto) 0.0 0.0-0.1 10^3/uL Immature Granulocyte # (Auto) 0.0 0.0-0.1 10^3/uL Prothrombin Time 14.2 12.2-14.7 SEC INR Comment 1.1 0.8-1.4 Activated Partial Thromboplast Time 41 H 24-35 SEC Sodium Level 141 135-145 MMOL/L Potassium Level 3.8 3.6-5.0 MMOL/L Chloride Level 105 98-107 MMOL/L Carbon Dioxide Level 25 21-32 MMOL/L Anion Gap 11 5-14 MMOL/L Blood Urea Nitrogen 18 7-18 MG/DL Creatinine 0.96 0.60-1.30 MG/DL Estimat Glomerular Filtration Rate 68 BUN/Creatinine Ratio 19 Glucose Level 97 70-105 MG/DL Calcium Level 8.9 8.5-10.1 MG/DL Corrected Calcium 8.7 8.5-10.1 MG/DL Magnesium Level 2.4 1.6-2.4 MG/DL Total Bilirubin 0.5 0.1-1.0 MG/DL Aspartate Amino Transf (AST/SGOT) 17 5-34 U/L Alanine Aminotransferase (ALT/SGPT) 17 0-55 U/L Alkaline Phosphatase 85 40-136 U/L Myoglobin 37.9 10.0-92.0 NG/ML Troponin I < 0.028 <0.028 NG/ML B-Type Natriuretic Peptide 237.9 H <100.0 PG/ML Total Protein 7.2 6.4-8.2 GM/DL Albumin 4.2 3.2-4.5 GM/DL Lipase 28 8-78 U/L My Orders Orders - CASANDRA SALES Continuous Ekg Monitoring (09/14/21 18:16) Ekg Tracing (09/14/21 18:16) Cbc With Automated Diff (09/14/21 18:30) Magnesium (09/14/21 18:30) Chest 1 View, Ap/Pa Only (09/14/21 18:30) Comprehensive Metabolic Panel (09/14/21 18:30) Myoglobin Serum (09/14/21 18:30) Protime With Inr (09/14/21 18:30) Partial Thromboplastin Time (09/14/21 18:30) O2 (09/14/21 18:30) Lipid Panel (09/15/21 06:00) Ed Iv/Invasive Line Start (09/14/21 18:30) Lipase (09/14/21 18:30) Bnp [place] (09/14/21 18:30) Troponin I Zeb (09/14/21 18:30) Nitroglycerin 0.4 Mg Btl 25's (Nitrostat (09/14/21 18:30) Aspirin Chewable Tablet (Baby Aspirin Ch (09/14/21 18:30) Orthostatic Vital Signs (Adult (09/14/21 18:47) Lidocaine 2% Viscous 15 Ml (Xylocaine Vi (09/14/21 19:00) Famotidine Tablet (Pepcid Tablet) (09/14/21 18:57) Antacid Suspension (Mylanta Suspension (09/14/21 19:00) Ekg Tracing (09/14/21 18:57) Apixaban Tablet (Eliquis Tablet) (09/14/21 19:30) Ed Admission (Communication) (09/14/21 19:28) Medications Given in ED Current Medications Medications Dose Ordered Sig/Sigrid Route Start Time Stop Time Status Last Admin Dose Admin Al Hydrox/Mg Hydrox/Simethicone 30 ml ONCE ONCE PO 09/14/21 19:00 09/14/21 19:01 DC 09/14/21 19:12 30 ML Aspirin 324 mg ONCE ONCE PO 09/14/21 18:30 09/14/21 18:31 DC 09/14/21 18:36 324 MG Lidocaine HCl 15 ml ONCE ONCE PO 09/14/21 19:00 09/14/21 19:01 DC 09/14/21 19:13 15 ML Nitroglycerin 0.4 mg UD PRN SL 09/14/21 18:30 09/14/21 18:37 0.4 MG Vital Signs/I&O 09/14/21 09/14/21 09/14/21 17:56 18:42 18:51 Temp 35.7 Pulse 75 58 60 59 64 Resp 20 18 B/P (MAP) 142/89 (106) 119/71 120/91 (101) 107/83 (91) 126/78 (94) Pulse Ox 95 96 O2 Delivery Room Air Blood Pressure Mean: 87 Progress Progress Note : Time: 18:54 Progress Note She appears to be on the dry side and perhaps has had too much Lasix and this is causing her to be lightheaded when she stands up. Nitroglycerin did nothing for her chest pressure but it did cause her blood pressure to drop precipitously from 190 systolic to 119 systolic. Suspect GERD could also be the source of her symptoms so organ to trial a GI cocktail and Pepcid. Orthostatic vital signs and a half liter of fluids. Initial ECG Impression Date: Sep 14, 2021 Initial ECG Impression Time: 18:30 Initial ECG Rate: 59 Initial ECG Rhythm: Normal Sinus Initial ECG Intervals: Normal Initial ECG Impression: Normal Initial ECG Comparisson: Unchanged Comment Atrial/ventricular pacemaker without clinically relevant ST elevation or depression. There is about a half of a block of ST elevation in leads II, III and aVF of uncertain significance there was not seen a couple months ago on EKG. EKG : EKG Time: 19:10 Rate: 54 Rhythm: Normal Sinus Intervals: Normal ECG Comparisson: No Previous ECG Available ECG Impression: Normal Comment Normal sinus rhythm without clinically relevant ST elevation or depression. Previous inferior lead ST changes are not seen on this EKG Diagnostic Imaging Diagonstic Imaging: Xray Plain Films/CT/US/NM/MRI: chest Comments NAME: [facility] REC#: [id number] PT STATUS: REG ER : 1960 PHYSICIAN: CASANDRA SALES MD ADMIT DATE: 09/14/21/ER Draft Date of Exam:09/14/21 CHEST 1 VIEW, AP/PA ONLY Indication: Shortness of breath. Comparison made to 08/10/2021 Findings: Lungs show no focal consolidation, effusion, pneumothorax or failure pattern. Pacemaker device stable. Impression: Stable chest Dictated on workstation # [id number] Dict: 09/14/21 1859 Trans: 09/14/21 1909 CVB [id number] Interpreted by: CONCEPCION GAMBLE Electronically signed by: Reviewed: Reviewed by Me Departure Communication (Admissions) Time/Spoke to Admitting Phy: 19:20 Discussed the case with Dr. Fox who agrees to observe the patient on cardiac stepdown. Continue Eliquis. She will put in queued orders. Time/Spoke to Consulting Phy: 19:15 Discussed the case with Dr. Martínez who had already planned to do an outpatient stress test next week. He would like to go ahead and give her a dose of Lovenox aspirin and watch her overnight. Impression Primary Impression: Chest pressure Additional Impression: ACS (acute coronary syndrome) Disposition: ADMITTED INPATIENT Condition: Stable Admissions Decision to Admit Reason: Admit from ER (General) Decision to Admit/Date: Sep 14, 2021 Time/Decision to Admit Time: 19:22 Departure-Patient Inst. Referrals: [facility] (PCP/Family) Primary Care Physician CASANDRA SALES Sep 14, 2021 18:47
[2021-09-14 18:48] LABS: CREATININE SERUM 0.96 MG/DL (0.60-1.30)
[2021-09-14 18:49] LABS: INR 1.1 (0.8-1.4); PROTHROMBIN TIME PATIENT 14.2 SEC (12.2-14.7)
[2021-09-14 18:51] LABS: MAGNESIUM 2.4 MG/DL (1.6-2.4)
[2021-09-14] MEDS ORDERED: FAMOTIDINE 20 MG (PEPCID) TABLET PO STA (18:57)
[2021-09-14] MEDS ORDERED: LIDOCAINE 2% VISCOUS 15 ML UDC PO ONE (19:00)
[2021-09-14] MEDS ORDERED: ANTACID SUSP 30 ML UDC (MYLANTA) PO ONE (19:00)
--- NOTE | 2021-09-14 19:09 | Diagnostic Imaging Report ---
Indication: Shortness of breath. Comparison made to 08/10/2021 Findings: Lungs show no focal consolidation, effusion, pneumothorax or failure pattern. Pacemaker device stable. Impression: Stable chest Dictated by: Dictated on workstation # [id number]
[2021-09-14] MEDS ORDERED: APIXABAN 5 MG (ELIQUIS) TABLET PO ONE (19:30)
[2021-09-14] MEDS ORDERED: ONDANSETRON 4 MG (ZOFRAN) ORAL DISSOLVE TAB PO PRN (20:15)
[2021-09-14] MEDS ORDERED: PATIENT MAY USE OWN MEDS, ALL PO SCH (20:15)
[2021-09-14] MEDS ORDERED: LACTULOSE SYRUP 10GM/15ML (ENULOSE) 30ML UDC PO PRN (20:15)
[2021-09-14] MEDS ORDERED: MELATONIN 3 MG TABLET PO PRN (20:15)
[2021-09-14] MEDS ORDERED: polyethylene glycoL POWDER 17 GM (MIRALAX) PACK PO PRN (20:15)
[2021-09-14] MEDS ORDERED: diphenhydrAMINE 25 MG TAB (BENADRYL) PO PRN (20:15)
[2021-09-14] MEDS ORDERED: CALCIUM CARBONATE 500 MG (TUMS) TAB.CHEW PO PRN (20:15)
[2021-09-14] MEDS ORDERED: ONDANSETRON 4 MG/2 ML (SDV) Z0FRAN IV PRN (20:15)
[2021-09-14] MEDS ORDERED: diphenhydrAMINE 50 MG/ML INJ (BENADRYL) IVP PRN (20:15)
[2021-09-14] MEDS ORDERED: ANTACID SUSP 30 ML UDC (MYLANTA) PO PRN (20:15)
[2021-09-14] MEDS ORDERED: ALPRAZolam 0.25 MG (XANAX) TAB PO PRN (20:15)
[2021-09-14] MEDS ORDERED: MILK OF MAGNESIA 400 MG/5 ML 30 ML UDC PO PRN (20:15)
[2021-09-14] MEDS ORDERED: BISACODYL 10 MG SUPP (DULCOLAX) PR PRN (20:15)
[2021-09-14] MEDS ORDERED: HYDROmorphone 2 MG/ML VIAL (DILAUDID) IVP PRN (20:15)
[2021-09-14] MEDS ORDERED: RT-ALBUTEROL/IPRATROPIUM 3 ML (DUONEB) VIAL INH PRN (21:45)
[2021-09-14] MEDS: DOCUSATE SODIUM 100 MG (COLACE) CAP PO SCH (23:14)
[2021-09-14] MEDS: SENNOSIDES 8.6 MG (SENOKOT) TAB PO SCH (23:14)
[2021-09-14] MEDS: APIXABAN 5 MG (ELIQUIS) TABLET PO SCH (23:21)
[2021-09-14] MEDS: ACETAMINOPHEN 325 MG TABLET PO PRN (23:25)
[2021-09-15] VITALS (11 sets, daily range): BP systolic 84–174; BP diastolic 53–88
[2021-09-15 05:20] LABS: BASOPHILS % (AUTO) 1 % (0-10); EOSINOPHILS # (AUTO) 0.3 10^3/uL (0.0-0.3); EOSINOPHILS % (AUTO) 4 % (0-10); HEMATOCRIT 40 % (35-52); LYMPHOCYTES # (AUTO) 3.3 10^3/uL (1.0-4.0); LYMPHOCYTES % (AUTO) 56 % (12-44); MEAN CORPUSCULAR HEMOGLOBIN 30 pg (25-34); MEAN CORPUSCULAR HGB CONC 33 g/dL (32-36); MEAN CORPUSCULAR VOLUME 91 fL (80-99); MONOCYTES # (AUTO) 0.5 10^3/uL (0.0-1.0); MONOCYTES % (AUTO) 8 % (0-12); NEUTROPHILS # (AUTO) 1.8 10^3/uL (1.8-7.8); NEUTROPHILS % (AUTO) 31 % (42-75); PLATELET COUNT 234 10^3/uL (130-400); WHITE BLOOD COUNT 5.9 10^3/uL (4.3-11.0)
[2021-09-15 05:33] LABS: TRIGLYCERIDES 179 MG/DL (<150); VLDL CHOLESTEROL 36 MG/DL (5-40)
[2021-09-15 05:38] LABS: CHOLESTEROL 117 MG/DL (< 200); HDL CHOLESTEROL 28 MG/DL (40-60)
--- NOTE | 2021-09-15 06:10 | Short Stay Summary-Hospitalist ---
History of Present Illness HPI/Chief Complaint CC: Chest pain HPI: This is a 61 yr old female who has a history of pacemaker placement during Covid due to cardiomyopathy. She presented with chest pain. She was scheduled for a stress test next week. She will undergo a stress test today. They interrogated her pacemaker and it appears that a lead is misplaced. Dr. Martínez will manage. 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 Patients Allergies have been reviewed. Allergies Allergies Coded Allergies morphine (Unverified Allergy, Mild, 03/20/20) Past Oosbxyt-Cihlhi-Quopsn Hx Patient Social History Marrital Status: single Employed/Student: unemployed Tobacco Use?: No Smoking Status: Former Smoker Use of E-Cig and/or Vaping dev: No Substance use?: No Alcohol Use?: No Pt feels they are or have been: No Immunizations Up To Date Date of Influenza Vaccine: Jan 19, 2021 First/Initial COVID19 Vaccinat: RECEIVED, UNK WHEN Second COVID19 Vaccination [place]: RECEIVED, UNK WHEN Tetanus Booster (TDap): Unknown PED Vaccines UTD: Yes Seasonal Allergies Seasonal Allergies: Yes Current Status status: No Advance Directives: No Communicates: Verbally Primary Language: South Korean Preferred Spoken Language: South Korean Is interpretation needed?: No Implanted or Applied Medical D: Pacemaker Past Medical History Surgeries: Abdominal, Adenoidectomy, Section, Gallbladder, Pacemaker, Thyroidectomy, Tonsillectomy Asthma, Chronic Bronchitis Currently Using CPAP: No Currently Using BIPAP: No Atrial Fibrillation, Chronic Edema/Swelling, Hypertension, Palpitations Headaches /Migraines, TIA 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 Gastroesophageal Reflux, Hiatal Hernia Arthritis Hypothyroidsim Depression Blood Disorders: No Family Medical History Arthritis G8 SISTER son daughter Cardiovascular disease 19 FATHER Congenital heart disease Diabetes mellitus 19 MOTHER Headache disorder G8 SISTER son daughter Hypertension 19 MOTHER G8 SISTER Myocardial infarction 19 FATHER Neoplasm 19 FATHER 19 MOTHER Seizure disorder son Thyroid disease G8 SISTER Heart Disease Review of Systems Constitutional: see HPI, malaise, weakness Respiratory: dyspnea on exertion Cardiovascular: chest pain Physical Exam Physical Exam Vital Signs Vital Signs - First Documented 09/14/21 09/14/21 17:56 21:10 Temp 35.7 Pulse 75 Resp 20 B/P (MAP) 142/89 (106) Pulse Ox 95 O2 Delivery Room Air FiO2 21 Capillary Refill : Height, Weight, BMI Height: '" Weight: lbs. oz. kg; 39.84 BMI Method: General Appearance: No Apparent Distress, WD/WN, Chronically ill, Obese HEENT: PERRL/EOMI, TMs Normal Neck: Full Range of Motion, Normal Inspection Respiratory: Chest Non Tender, Lungs Clear, Normal Breath Sounds, No Accessory Muscle Use, No Respiratory Distress Cardiovascular: Regular Rate, Rhythm, No Edema, No Murmur, Normal Peripheral Pulses Gastrointestinal: Normal Bowel Sounds, Non Tender, Soft Extremity: Normal Capillary Refill, Normal Inspection Neurologic/Psychiatric: Alert, Oriented x3, No Motor/Sensory Deficits Skin: Normal Color, Warm/Dry Results Results/Procedures Labs Laboratory Tests 09/14/21 18:05 09/15/21 05:00 Patient resulted labs reviewed. Short Stay Diagnosis Discharge Diagnosis-Short Stay Admission Diagnosis Chest pain Final Discharge Diagnosis Chest pain Pacemaker lead out of place Cardiomyopathy Conclusion Plan Stress test Pacemaker management SIA FOX 3, 2022 06:10
[2021-09-15] MEDS ORDERED: REGADENOSON 0.4 MG/5 ML SYR (LEXISCAN) IV ONE ×2 (06:30→11:48)
--- NOTE | 2021-09-15 06:50 | Consultation-Cardiology ---
HPI-Cardiology Cardiology Consultation Date of Consultation 09/15/21 Date of Admission Time Seen by Provider: 06:45 Indication: Chest pain HPI 61 years old lady with history of congestive heart failure, nonischemic cardiomyopathy. She was seen in my office last month for chest pain and scheduled for a stress test. Came into the emergency room complaining of episodes of lightheadedness and dizziness, tightness in her chest pressure in the retrosternal area, the pain was not reproducible or related to exertion. Continue to have episodes of dizziness and lightheadedness. She denied any shortness of breath. Denied any syncope. Patient had a recent EGD showing gastritis. She was started on pantoprazole. Home Medications & Allergies Allergies: Coded Allergies: morphine (Unverified Allergy, Mild, 03/20/20) Home Medication List Reviewed: Yes [id number] Hx Patient Social History Marital Status: Drug of Choice: THC IN PAST Smoking Status: Former Smoker 2nd Hand Smoke Exposure: No Recent Hopitalizations: No Have you traveled recently?: No Alcohol Use?: No Immunizations Up To Date Tetanus Booster (TDap): Unknown Date of Influenza Vaccine: Jan 19, 2021 Past Medical History Discussed below Family Medical History Significant Family History: Heart Disease Family History: Arthritis G8 SISTER son daughter Cardiovascular disease 19 FATHER Congenital heart disease Diabetes mellitus 19 MOTHER Headache disorder G8 SISTER son daughter Hypertension 19 MOTHER G8 SISTER Myocardial infarction 19 FATHER Neoplasm 19 FATHER 19 MOTHER Seizure disorder son Thyroid disease G8 SISTER Review of Systems-General Review of Systems Constitutional: see HPI; No chills, No diaphoresis; dizziness, malaise, weakness EENTM: see HPI, no symptoms reported Respiratory: see HPI; No cough, No dyspnea on exertion, No hemoptysis, No orthopnea, No phlegm, No short of breath, No stridor, No wheezing, No other Cardiovascular: see HPI, chest pain; No edema, No Hx of Intervention, No palpitations, No syncope, No vascular heart diseas, No other Gastrointestinal: no symptoms reported, see HPI Genitourinary: no symptoms reported, see HPI Musculoskeletal: see HPI; No back pain, No joint pain Skin: no symptoms reported, see HPI Psychiatric/Neurological: No Symptoms Reported, See HPI Reviewed Test Results Reviewed Test Results Lab Laboratory Tests Test 09/14/21 18:05 09/14/21 23:57 09/15/21 05:00 Range/Units White Blood Count 7.4 5.9 4.3-11.0 10^3/uL Red Blood Count 4.69 4.37 3.80-5.11 10^6/uL Hemoglobin 14.0 13.0 11.5-16.0 g/dL Hematocrit 43 40 35-52 % Mean Corpuscular Volume 92 91 80-99 fL Mean Corpuscular Hemoglobin 30 30 25-34 pg Mean Corpuscular Hemoglobin Concent 32 33 32-36 g/dL Red Cell Distribution Width 12.7 12.5 10.0-14.5 % Platelet Count 259 234 130-400 10^3/uL Mean Platelet Volume 10.0 10.0 9.0-12.2 fL Immature Granulocyte % (Auto) 0 0 % Neutrophils (%) (Auto) 46 31 L 42-75 % Lymphocytes (%) (Auto) 41 56 H 12-44 % Monocytes (%) (Auto) 8 8 0-12 % Eosinophils (%) (Auto) 4 4 0-10 % Basophils (%) (Auto) 1 1 0-10 % Neutrophils # (Auto) 3.4 1.8 1.8-7.8 10^3/uL Lymphocytes # (Auto) 3.1 3.3 1.0-4.0 10^3/uL Monocytes # (Auto) 0.6 0.5 0.0-1.0 10^3/uL Eosinophils # (Auto) 0.3 0.3 0.0-0.3 10^3/uL Basophils # (Auto) 0.0 0.0 0.0-0.1 10^3/uL Immature Granulocyte # (Auto) 0.0 0.0 0.0-0.1 10^3/uL Prothrombin Time 14.2 12.2-14.7 SEC INR Comment 1.1 0.8-1.4 Activated Partial Thromboplast Time 41 H 24-35 SEC Sodium Level 141 135-145 MMOL/L Potassium Level 3.8 3.6-5.0 MMOL/L Chloride Level 105 98-107 MMOL/L Carbon Dioxide Level 25 21-32 MMOL/L Anion Gap 11 5-14 MMOL/L Blood Urea Nitrogen 18 7-18 MG/DL Creatinine 0.96 0.60-1.30 MG/DL Estimat Glomerular Filtration Rate 68 BUN/Creatinine Ratio 19 Glucose Level 97 70-105 MG/DL Calcium Level 8.9 8.5-10.1 MG/DL Corrected Calcium 8.7 8.5-10.1 MG/DL Magnesium Level 2.4 1.6-2.4 MG/DL Total Bilirubin 0.5 0.1-1.0 MG/DL Aspartate Amino Transf (AST/SGOT) 17 5-34 U/L Alanine Aminotransferase (ALT/SGPT) 17 0-55 U/L Alkaline Phosphatase 85 40-136 U/L Myoglobin 37.9 10.0-92.0 NG/ML Troponin I < 0.028 < 0.028 < 0.028 <0.028 NG/ML B-Type Natriuretic Peptide 237.9 H <100.0 PG/ML Total Protein 7.2 6.4-8.2 GM/DL Albumin 4.2 3.2-4.5 GM/DL Lipase 28 8-78 U/L Triglycerides Level 179 H <150 MG/DL Cholesterol Level 117 < 200 MG/DL LDL Cholesterol Direct 58 1-129 MG/DL VLDL Cholesterol 36 5-40 MG/DL HDL Cholesterol 28 L 40-60 MG/DL Physical Exam Physical Exam Vital Signs Vital Signs - First Documented 09/14/21 09/14/21 17:56 21:10 Temp 35.7 Pulse 75 Resp 20 B/P (MAP) 142/89 (106) Pulse Ox 95 O2 Delivery Room Air FiO2 21 Capillary Refill : Height, Weight, BMI Height: '" Weight: lbs. oz. kg; 39.84 BMI Method: General Appearance: No Apparent Distress, WD/WN HEENT: PERRL/EOMI, TMs Normal Neck: Full Range of Motion, Normal Inspection Respiratory: Chest Non Tender, Lungs Clear, Normal Breath Sounds, No Accessory Muscle Use, No Respiratory Distress Cardiovascular: Regular Rate, Rhythm, No Edema, No Murmur, Normal Peripheral Pulses Gastrointestinal: Normal Bowel Sounds, Non Tender, Soft Extremity: Normal Capillary Refill, Normal Inspection Neurologic/Psychiatric: Alert, Oriented x3, No Motor/Sensory Deficits Skin: Normal Color, Warm/Dry A/P-Cardiology Admission Diagnosis Chest pain Congestive heart failure, chronic compensated left ventricular systolic dysf unction, nonischemic cardiomyopathy Sinus node dysfunction Hypertension Assessment/Plan Chest pain, nonspecific etiology, EKG did not show any acute abnormality. I am planning to evaluate Lexiscan stress test today. On reviewing of her EKGs it appears to have none capture spikes of her pacemaker. I contacted [employer] and and we interrogated her pacemaker, I noticed that there is no atrial sensing or capture. I reviewed her chest x-ray and it appears that the atrial lead has dislodged from its place and she had good pacemaker interrogation in May 2021 and then the x-ray in July 2021 showing possible early dislodgment and currently the lead is all the way up in the subclavian vein. I will schedule her for atrial and ventricular lead repositioning of her ICD device Mild coronary artery disease per cardiac catheterization done in February 2020, planning to evaluate stress test Congestive heart failure, chronic left ventricular systolic dysfunction nonischemic cardiomyopathy with ejection fraction 20 percent, improved to 50 to 55%, last echo was done in June 2021. Continue to monitor. Status post pacemaker/ICD implanted in November 2020. I will proceed with interrogation of her ICD. Patient is maintained on lisinopril 20 mg daily, Toprol-XL 50 mg daily, unable to tolerate higher dose due to hypotension and fatigue. Sinus node dysfunction, severe bradycardia, history of paroxysmal atrial fibrillation/flutter with episodes of tachycardia. Holter monitor was done showing sinus rhythm with episode of bradycardia with a heart rate 23, occasional PVCs, nonsustained ventricular tachycardia for 5 beats and occasional APCs, she is s/p dual chamber PPM/ICD, [employer] [place] XT DR JACKSON. Mild shortness of breath, improved after starting on diuretics. Continue to monitor Hypertension, better control at this time, reporting episodes of hypotension and fatigue and not feeling well. Unable to tolerate a higher dose of ESHA inhibitor or beta blockers. Hyperlipidemia, patient is reporting not feeling well having abdominal discomfort occasional chest pain while on Lipitor. I am planning to cut down the dose to 20 mg daily and possibly going down to 10 mg daily. Patient has mild coronary artery disease per cardiac catheterization February 2020. [id number] score of 4, yearly risk of stroke without oral anticoagulation is 4 percent. Maintained on Eliquis History of thyroidectomy, not maintained on thyroid replacement therapy managed by primary care physician History of mild elevation in liver enzymes secondary to passive hepatic congestion, improved. Liver enzymes are back to normal. Continue to monitor Gastroesophageal reflux disease maintained on Nexium Incisional hernia, Had surgery done, seen by MARLEEN Meraz MD Sep 15, 2021 06:50
[2021-09-15] MEDS: ASPIRIN E.C. 81 MG (ECOTRIN) TAB PO SCH (08:20)
[2021-09-15] MEDS: APIXABAN 5 MG (ELIQUIS) TABLET PO SCH ×2 (08:20→20:31)
[2021-09-15] MEDS: SENNOSIDES 8.6 MG (SENOKOT) TAB PO SCH ×2 (08:21→20:31)
[2021-09-15] MEDS: DOCUSATE SODIUM 100 MG (COLACE) CAP PO SCH ×2 (08:21→20:31)
[2021-09-15] MEDS ORDERED: NS IV 1000 ML 1,000 ML ONE ×2 (10:53→12:49)
[2021-09-15] MEDS ORDERED: LIDOCAINE 1% INJ 20 ML VIAL ONE (10:53)
[2021-09-15] MEDS ORDERED: HEParin (CATH LAB) 1,000 ML IV ONE (10:53)
[2021-09-15] MEDS ORDERED: CATHETER FLUSH 10 ML SYR IVP PRN (11:00)
[2021-09-15] MEDS ORDERED: MIDAZOLAM 5 MG/5 ML (VERSED) VIAL ONE (12:41)
[2021-09-15] MEDS ORDERED: ceFAZolin INJECTION 1,000 MG ONE (12:41)
[2021-09-15] MEDS ORDERED: fentaNYL INJ 100 MCG/2 ML AMP ONE (12:41)
[2021-09-15] MEDS ORDERED: PATIENT MAY USE OWN MEDS, ALL PO SCH (14:15)
[2021-09-15] MEDS ORDERED: NS IV 1000 ML 1,000 ML IV SCH (14:15)
--- NOTE | 2021-09-15 14:15 | Conscious Sedation/ASA ---
Conscious Sedation Pre-Proced Time 14:15 ASA Score 3 For ASA 3 and 4: Consider anesthesia and medical clearance. Also, for patients with a history of failed moderate sedation consider anesthesia. Airway Lungs Heart ASA score ASA 1: a normal healthy patient ASA 2: a patient with a mild systemic disease (mid diabetes, controlled hypertension, obesity x ASA 3: a patient with a severe systemic disease that limits activity (angina, COPD, prior Myocardial infarction) ASA 4: a patient with an incapacitating disease that is a constant threat to life (CHF, renal failure) ASA 5: a moribund patient not expected to survive 24 hrs. (ruptured aneurysm) ASA 6: a declared brain- patient whose organs are being harvested. For emergent operations, add the letter E after the classification Mallampati Classification Grade 3 Sedation Plan Analgesia, Amnesia, Plan communicated to team members, Discussed options with patient/fam, Discussed risks with patient/fam The patient is an appropriate candidate to undergo the planned procedure, sedation, and anesthesia. The patient immediately re-assessed prior to indication. MARLEEN MCQUEEN MD Sep 15, 2021 14:15
--- NOTE | 2021-09-15 14:19 | ICD Implantation ---
Single Chamber ICD Implant DATE OF SERVICE: 61 female SINGLE CHAMBER ICD IMPLANTATION PRIMARY PHYSICIAN: REFERRING PHYSICIAN: BOOKING OFFICER: Marleen Martínez INDICATION: PREOPERATIVE DIAGNOSES: Dislodgment of atrial lead and a dual-chamber ICD POSTOPERATIVE DIAGNOSES: Repositioning of atrial lead and a dual-chamber ICD HISTORY: ICD implantation is recommended. PROCEDURE PERFORMED: Repositioning of atrial lead and a dual-chamber ICD COMPLICATIONS: None. ESTIMATED BLOOD LOSS: 20 mL. SPECIMENS: None. ANESTHESIA: Conscious sedation. ORAL ANTICOAGULATION: None. FLUOROSCOPY TIME: FLUOROSCOPY DOSE: CONTRAST DOSE: PROCEDURE DETAILS: 61 years old lady with history of dual-chamber ICD. Has sinus node dysfunction and paroxysmal atrial fibrillation. Patient has poor sensing and capture of the atrial lead, review of her chest x-ray showed dislodgment of the atrial lead. I decided to reposition the lead. Patient was brought to the cardiac catheterization laboratory, local anesthesia applied, conscious sedation achieved. I made a skin incision and retrieved the pacemaker/ICD from the pocket. Remove the lead from the device. And release the lead from all the suture that is still securing the lead. I advanced a straight stylette and retracted the screw. After multiple attempts I was able to get good positioning for the atrial lead. I tested it multiple time and appear to be in good position. The ventricular lead tested normal did not require any adjustment. The lead was attached to the device again and the device was placed in the direct patch and it was inserted in the pocket and the pocket was closed on 2 layers. Interrogation post implant. Right atrium pulse width 0.6 ms at 0.5 V. Impedance 457, P wave 2.125 mV. Good sensing and capture activity. CONCLUSION: Successful atrial lead repositioning for a dual-chamber ICD device MARLEEN MARTÍNEZ MD Sep 15, 2021 14:19
--- NOTE | 2021-09-15 14:21 | Cardiology Stress Test Report ---
Stress Test Report Date of Procedure/Referring: Date of Procedure: Sep 15, 2021 PCP [place] Admitting Physician Admitting Physician: Sia Fox DO Attending Physician: Sia Fox DO Indications: CP Baseline Heart Rate: 50 Baseline Blood Pressure: Blood Pressure Systolic: 147 Blood Pressure Diastolic: 78 Baseline Vitals Vital Signs Date Time Temp Pulse Resp B/P (MAP) Pulse Ox O2 Delivery O2 Flow Rate FiO2 09/14/21 17:56 35.7 75 20 142/89 (106) 95 Room Air 09/14/21 21:10 21 Baseline EKG: Baseline EKG: NSR Summary After explaining the procedure to the patient, she signed a consent and then brought to the stress nuclear laboratory. Patient received 0.4 mg Lexiscan for stress test, ECG, heart rate and blood pressure were monitored continuously. Resting and stress dose of radio tracer were injected, imaging was acquired and reviewed in short axis, horizontal long axis and vertical long axis views. TID: 1.08 SSS: 5 SDS: 4 EF: 67 1. Patient tolerated Lexiscan well 2. Breast attenuation with typical female pattern with no significant ischemia or infarction on SPECT images 3. Normal left ventricular size, ejection fraction 67% MARLEEN MCQUEEN MD Sep 15, 2021 14:21
--- NOTE | 2021-09-15 14:55 | Diagnostic Imaging Report ---
INDICATION: Pacemaker placement. TIME OF EXAM: 02:46 p.m. COMPARISON: Correlation is made with prior chest one day earlier. FINDINGS: Heart size is stable. Cardiac defibrillator is in place. No infiltrates are seen. There is no effusion or pneumothorax. IMPRESSION: No acute cardiopulmonary process is detected. Dictated by: Dictated on workstation # [id number]
[2021-09-15] MEDS: ACETAMINOPHEN 325 MG TABLET PO PRN (20:31)
[2021-09-15] MEDS: ceFAZolin INJECTION 1,000 MG in NS (IVPB) 50 ML IV SCH (22:02)
[2021-09-16 04:57] LABS: BASOPHILS % (AUTO) 0 % (0-10); EOSINOPHILS # (AUTO) 0.3 10^3/uL (0.0-0.3); EOSINOPHILS % (AUTO) 5 % (0-10); HEMATOCRIT 39 % (35-52); HEMOGLOBIN 12.4 g/dL (11.5-16.0); LYMPHOCYTES # (AUTO) 2.2 10^3/uL (1.0-4.0); LYMPHOCYTES % (AUTO) 40 % (12-44); MEAN CORPUSCULAR HEMOGLOBIN 30 pg (25-34); MEAN CORPUSCULAR HGB CONC 32 g/dL (32-36); MEAN CORPUSCULAR VOLUME 92 fL (80-99); MEAN PLATELET VOLUME 9.8 fL (9.0-12.2); MONOCYTES # (AUTO) 0.4 10^3/uL (0.0-1.0); MONOCYTES % (AUTO) 6 % (0-12); NEUTROPHILS # (AUTO) 2.6 10^3/uL (1.8-7.8); NEUTROPHILS % (AUTO) 48 % (42-75); PLATELET COUNT 194 10^3/uL (130-400); WHITE BLOOD COUNT 5.5 10^3/uL (4.3-11.0)
[2021-09-16] MEDS: ceFAZolin INJECTION 1,000 MG in NS (IVPB) 50 ML IV SCH (06:23)
--- NOTE | 2021-09-16 07:51 | Discharge Inst-Post CATH ---
Discharge Inst-CATH/EP Problems Reviewed?: Yes Post Cardiac Cath/EP D/C Inst Follow Up/Plan Appointment with Dr Martínez in one week <b>CARDIAC CATH/EP PROCEDURE DISCHARGE INSTRUCTIONS</b> ACTIVITY * Go Home directly and rest. * Limit activity of the leg (or wrist if it was used) for 7 days including aerobics, swimming, jogging, bicycling, etc. * Restrict stair-climbing for 7 days if possible, if not, climb up with your non-cath leg, then bring together on the same step. * Avoid lifting, pushing, pulling or excessive movement of the affected extremity for 7 days. * Customary sexual activity may be resumed after 2 days-use caution not to use a position that strains or causes pain to the affected extremity. * No driving for 24 hours. * NO SMOKING. * Avoid straining for bowel movements for 7 days. * Gentle walking on level ground is allowed. * Returning to work will depend on the type of procedure and the results. Your doctor will discuss this with you. CALL YOUR DOCTOR FOR ANY OF THE FOLLOWING: *If bleeding from the puncture site occurs- Apply gentle pressure to site with clean cloth and call your doctor or EMS. * If a knot or lump forms under the skin, increases in size, or causes pain. * If bruising appears to be worsening or moving further down your leg instead of disappearing. * Temperature above 101 F. CARE OF YOUR GROIN INCISION; * Bruising or purple discoloration of the skin near the puncture site is common. * You may shower only, no bathtub bathing for 5 days. Be careful to avoid slipping as your leg may feel stiff. * If a closure device was used on your femoral artery, please see the attached guide regarding care of the device and your leg. * Leave dressing on FOR 24 hours. CARE OF YOUR WRIST INCISION; * Bruising or purple discoloration of the skin near the puncture site is common. * You may shower. * DO NOT submerge wrist. * Leave dressing on FOR 24 hours. MARLEEN MARTÍNEZ MD Sep 16, 2021 07:51
[2021-09-16 08:59] VITALS: BP 152/75
[2021-09-16] MEDS: SENNOSIDES 8.6 MG (SENOKOT) TAB PO SCH (09:01)
[2021-09-16] MEDS: ASPIRIN E.C. 81 MG (ECOTRIN) TAB PO SCH (09:01)
[2021-09-16] MEDS: DOCUSATE SODIUM 100 MG (COLACE) CAP PO SCH (09:01)
[2021-09-16] MEDS: APIXABAN 5 MG (ELIQUIS) TABLET PO SCH (09:01)
--- NOTE | 2021-09-16 10:00 | Cardiology Progress Note ---
Subjective Date Seen by Provider: Sep 16, 2021 Time Seen by Provider: 09:59 Subjective/Events-last exam Patient was seen and evaluated, laying down in bed, feeling better. No further episodes of chest pain Pacemaker interrogation was done showing good sensing and capture activity Review of Systems General: No Chills, No Night Sweats, No Fatigue, No Malaise, No Appetite, No Other HEENT: No Head Aches, No Visual Changes, No Eye Pain, No Ear Pain, No Dysphasia, No Sinus Congestion, No Post Nasal Drip, No Sore Throat, No Other Pulmonary: No Dyspnea, No Cough, No Pleuritic Chest Pain, No Other Cardiovascular: No: Chest Pain, Palpitations, Orthopnea, Paroxysmal Noc. Dyspnea, Edema, Lt Headedness, Other Objective-Cardiology Exam Last Set of Vital Signs Vital Signs 09/14/21 09/16/21 21:10 08:59 Temp 36.0 Pulse 64 Resp 13 B/P (MAP) 152/75 (100) Pulse Ox 98 O2 Delivery Room Air FiO2 21 I&O Intake and Output 09/16/21 00:00 Intake Total 1090 ml Balance 1090 ml Intake Oral 1090 ml # Voids 5 General: Alert, Oriented X3, Cooperative HEENT: Atraumatic, PERRLA Neck: Supple, No JVD, No Thyromegaly Lungs: Clear to Auscultation, Normal Air Movement Heart: Regular Rate, Normal S1, Normal S2, No Murmurs Abdomen: Normal Bowel Sounds, Soft, No Tenderness, No Hepatosplenomegaly, No Masses Extremities: No Clubbing, No Cyanosis, No Edema, Normal Pulses, No Tenderness/Swelling Skin: No Rashes, No Breakdown, No Significant Lesion Neuro: Normal Gait, Normal Speech, Strength at 5/5 X4 Ext, Normal Tone, Sensation Intact Psych/Mental Status: Mental Status NL, Mood NL Results Lab Laboratory Tests 09/16/21 04:45 A/P-Cardiology Admission Diagnosis Chest pain Congestive heart failure, chronic compensated left ventricular systolic dysfunction, nonischemic cardiomyopathy Sinus node dysfunction Hypertension Assessment/Plan Chest pain, nonspecific etiology, EKG did not show any acute abnormality. Lexiscan was done showing no ischemia or infarction. On reviewing of her EKGs it appears to have none capture spikes of her pacemaker. I contacted [employer] and and we interrogated her pacemaker, I noticed that there is no atrial sensing or capture. I reviewed her chest x-ray and it appears that the atrial lead has dislodged from its place and she had good pacemaker interrogation in May 2021 and then the x-ray in July 2021 showing possible early dislodgment and currently the lead is all the way up in the subclavian vein. Status post repositioning of the left atrial lead. Evaluation showed excellent results. Testing of the device today showing excellent sensing and capture. Mild coronary artery disease per cardiac catheterization done in February 2020, no ischemia or infarction on stress test Congestive heart failure, chronic left ventricular systolic dysfunction nonischemic cardiomyopathy with ejection fraction 20 percent, improved to 50 to 55%, last echo was done in June 2021. Continue to monitor. Status post pacemaker/ICD implanted in November 2020. I will proceed with interrogation of her ICD. Patient is maintained on lisinopril 20 mg daily, Toprol-XL 50 mg daily, unable to tolerate higher dose due to hypotension and fatigue. Sinus node dysfunction, severe bradycardia, history of paroxysmal atrial fibrillation/flutter with episodes of tachycardia. Holter monitor was done showing sinus rhythm with episode of bradycardia with a heart rate 23, occasional PVCs, nonsustained ventricular tachycardia for 5 beats and occasional APCs, she is s/p dual chamber PPM/ICD, [employer] [place] XT DR JACKSON. Mild shortness of breath, improved after starting on diuretics. Continue to monitor Hypertension, better control at this time, reporting episodes of hypotension and fatigue and not feeling well. Unable to tolerate a higher dose of ESHA inhibitor or beta blockers. Hyperlipidemia, patient is reporting not feeling well having abdominal discomfort occasional chest pain while on Lipitor. I am planning to cut down the dose to 20 mg daily and possibly going down to 10 mg daily. Patient has mild coronary artery disease per cardiac catheterization February 2020. [id number] score of 4, yearly risk of stroke without oral anticoagulation is 4 percent. Maintained on Eliquis History of thyroidectomy, not maintained on thyroid replacement therapy managed by primary care physician History of mild elevation in liver enzymes secondary to passive hepatic congestion, improved. Liver enzymes are back to normal. Continue to monitor Gastroesophageal reflux disease maintained on Nexium Incisional hernia, Had surgery done, seen by MARLEEN Meraz MD Sep 16, 2021 10:00
== END 2021-09-16 10:43 | disposition home or self-care (01) ==
LOC: EDUNIT# 17:51 → ER 17:53 → CSD 19:45
PROVIDERS: ADMIT Internal Medicine; ATTEND Internal Medicine
DX: R07.9 Chest pain, unspecified (principal); T82.120A Displacement of cardiac electrode, initial encounter; I42.9 Cardiomyopathy, unspecified; I11.0 Hypertensive heart disease with heart failure; I50.22 Chronic systolic (congestive) heart failure; I49.5 Sick sinus syndrome; I42.8 Other cardiomyopathies; I95.9 Hypotension, unspecified; I48.0 Paroxysmal atrial fibrillation; K21.9 Gastro-esophageal reflux disease without esophagitis; K43.2 Incisional hernia without obstruction or gangrene; E78.5 Hyperlipidemia, unspecified; Z79.899 Other long term (current) drug therapy; Z79.890 Hormone replacement therapy; Z90.89 Acquired absence of other organs; Z79.01 Long term (current) use of anticoagulants
CPT/HCPCS: 33215; 71045 ×2; 78452; 80053; 80061; 83690; 83735; 83874; 83880; 84484 ×2; 85025 ×3; 85027; 85610; 85730; 93005 ×3; 93017; 96375; 96376; 99284; A9502; G0378; 36415; 96374

== ENCOUNTER 2021-09-16 20:27 | Emergency (ER) | payer MEDICAID ==
[~2021-09-16] VITALS: Ht 157.5 cm; Wt 102.0 kg
[2021-09-16] MEDS ORDERED: ACETAMINOPHEN 500 MG TAB (TYLENOL) PO ONE (23:45)
--- NOTE | 2021-09-17 00:53 | ED Integumentary General ---
General Chief Complaint: Post OP Complications/Pain Stated Complaint: POST PACEMAKER OP/INCISION BLEEDING Nursing Triage Note: Pt ambulates to FT2 with c/o increased bleeding s/p pacemaker repair. Pt was discharged earlier this morning, and this afternoon felt a "stinging pain" and noticed increased bleeding into bandage. Pt reports contacting nurse, was instructed to apply ice and light pressure. Tylenol does not help alleviate pain, bandage is now saturated with blood, ice pack in place, no further blood outside bandage. Allergies and Home Medications Allergies Coded Allergies: morphine (Unverified Allergy, Mild, 03/20/20) Patient Home Medication List Acetaminophen (Tylenol Extra Strength) 500 Mg Tablet, 1,000 MG PO Q8H PRN for PAIN-MILD (1-4), (Reported) Entered as Reported by: SPENCER HATHAWAY on 03/04/20 1012 Apixaban (Eliquis) 5 Mg Tablet, 5 MG PO BID, (Reported) Entered as Reported by: CHRISTINA FUENTES on 07/25/20 111 Atorvastatin Calcium (Atorvastatin Calcium) 20 Mg Tablet, 20 MG PO DAILY, (Reported) Entered as Reported by: JOSE HERNANDEZ on 07/20/21 09 Cetirizine HCl (Cetirizine HCl) 10 Mg Tablet, 10 MG PO DAILY, (Reported) Entered as Reported by: JOSE HERNANDEZ on 07/20/21 09 Cholecalciferol (Vitamin D3) (D3-50) 1,250 Mcg Capsule, 1,250 MCG PO DAILY, (Reported) Entered as Reported by: JOSE HERNANDEZ on 07/20/21 0916 Fluticasone Propionate (Fluticasone Propionate) 15.8 Ml [place].susp, 15.8 ML NS DAILY, (Reported) Entered as Reported by: JOSE HERNANDEZ on 07/20/21 0916 Furosemide (Furosemide) 20 Mg Tablet, 20 MG PO DAILY, (Reported) Entered as Reported by: CHRISTINA FUENTES on 07/25/20 111 Lisinopril (Lisinopril) 10 Mg Tablet, 20 MG PO DAILY, (Reported) Entered as Reported by: CHRISTINA FUENTES on 07/25/20 1116 Metoprolol Succinate (Toprol Xl) 50 Mg Tab.er.24h, 50 MG PO DAILY Prescribed by: MARLEEN MCQUEEN on 11/24/20 0715 [place]-3/Dha/Epa/Fish Oil (Fish Oil 1,000 mg Softgel) 1 Each Capsule, 3 EACH PO DAILY, (Reported) Entered as Reported by: PENNIE BOOTH on 11/23/20 1218 Ondansetron (Ondansetron Odt) 4 Mg Tab.rapdis, 4 MG SL Q4H PRN for NAUSEA/VOMITING Prescribed by: TURNER JUSTICE on 04/24/21 2336 Pantoprazole Sodium (Protonix) 40 Mg Tablet.dr, 40 MG PO DAILY Prescribed by: RICH HARRINTGON on 08/08/21 1047 Potassium Chloride (Potassium Chloride) 20 Meq Tablet.er, 20 MEQ PO DAILY, (Reported) Entered as Reported by: PENNIE BOOTH on 11/23/20 1218 Simethicone (Simethicone) 80 Mg Tab.chew, 80 MG PO PRN, (Reported) Entered as Reported by: JOSE HERNANDEZ on 07/20/21 0916 Past Yqbrkjk-Rplcto-Vgnaro Hx Patient Social History Tobacco Use?: No Smoking Status: Former Smoker Smokeless Tobacco Frequency: Never a User Use of E-Cig and/or Vaping dev: No Substance use?: No Alcohol Use?: Yes Alcohol Frequency: Rarely Pt feels they are or have been: No Immunizations Up To Date Tetanus Booster (TDap): Unknown PED Vaccines UTD: Yes Influenza Vaccine Up-to-Date: Yes; Up-to-Date First/Initial COVID19 Vaccinat: September 2020 Second COVID19 Vaccination [place]: October 2020 Third COVID19 Vaccination Date: 06/2021 COVID19 Vaccine Telecom Assistant: Jacob Seasonal Allergies Seasonal Allergies: Yes Past Medical History Surgery/Hospitalization HX: T/A, THRYOID, MARVEL, , HERNIA, CHF, GRAVES DX, ARTHRITIS D/C today from hospital s/p pacemaker repair Surgeries: Yes (OPEN CHOLECYSTECTOMY; HIATAL HERNIA REPAIR) Abdominal, Adenoidectomy, Section, Gallbladder, Pacemaker, Thyroidectomy, Tonsillectomy Respiratory: Yes Asthma, Chronic Bronchitis Currently Using CPAP: No Currently Using BIPAP: No Cardiac: Yes (BRADYCARDIA, CHF) Atrial Fibrillation, Chronic Edema/Swelling, Hypertension, Palpitations Neurological: Yes Headaches /Migraines, 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 Genitourinary: No Gastrointestinal: Yes Gastroesophageal Reflux, Hiatal Hernia Musculoskeletal: Yes Arthritis Endocrine: Yes (hx thyoidectomy) Hypothyroidsim HEENT: No Cancer: No Psychosocial: Yes Depression Integumentary: No Blood Disorders: No Family Medical History Arthritis G8 SISTER son daughter Cardiovascular disease 19 FATHER Congenital heart disease Diabetes mellitus 19 MOTHER Headache disorder G8 SISTER son daughter Hypertension 19 MOTHER G8 SISTER Myocardial infarction 19 FATHER Neoplasm 19 FATHER 19 MOTHER Seizure disorder son Thyroid disease G8 SISTER Heart Disease Physical Exam Vital Signs Vital Signs - First Documented 09/16/21 21:33 Temp 36.0 Pulse 64 Resp 20 B/P (MAP) 188/88 (121) Pulse Ox 98 O2 Delivery Room Air Capillary Refill : Progress/Results/Core Measures Results/Orders My Orders Orders - HUGO NEGRON DO Acetaminophen Tablet (Tylenol Tablet) (09/16/21 23:45) Medications Given in ED Current Medications Medications Dose Ordered Sig/Sigrid Route Start Time Stop Time Status Last Admin Dose Admin Acetaminophen 1,000 mg ONCE ONCE PO 09/16/21 23:45 09/16/21 23:46 DC 09/16/21 23:37 1,000 MG Vital Signs/I&O 09/16/21 09/16/21 21:33 22:27 Temp 36.0 36.0 Pulse 64 64 Resp 20 18 B/P (MAP) 188/88 (121) 171/91 Pulse Ox 98 98 O2 Delivery Room Air Room Air Blood Pressure Mean: 117 Departure Impression Primary Impression: BLEEDING FROM SURGICAL SITE Disposition: 01 HOME, SELF-CARE Condition: Improved Departure-Patient Inst. Decision time for Depature: 00:52 Referrals: [facility] (PCP/Family) Primary Care Physician MARLEEN MCQUEEN MD Patient Instructions: Bleeding After Surgery Add. Discharge Instructions: CONTINUE ALL PREVIOUS INSTRUCTIONS FROM DR. MCQUEEN RETURN TO ER IF THE AREA STARTS BLEEDING AGAIN HUGO NEGRON DO Sep 17, 2021 00:53
[2021-09-17 01:05] VITALS: BP 171/91
== END 2021-09-17 01:05 | disposition home or self-care (01) ==
LOC: EDUNIT# 20:27 → ER 20:28
DX: T82.837A Hemorrhage due to cardiac prosthetic devices, implants and grafts, initial encounter (principal); Z87.891 Personal history of nicotine dependence
CPT/HCPCS: 99283

== ENCOUNTER 2021-10-19 19:23 | Outpatient (CLI) | payer MEDICAID | END 2021-10-20 06:00 | disposition home or self-care (01) | LOC: SLEEP 19:23 | PROVIDERS: ATTEND Pediatrics | DX: G47.33 Obstructive sleep apnea (adult) (pediatric) (principal) | CPT/HCPCS: 95810 ==

== ENCOUNTER 2021-11-25 19:30 | Outpatient (CLI) | payer MEDICAID | END 2021-11-26 06:00 | disposition home or self-care (01) | LOC: SLEEP 19:30 | PROVIDERS: ATTEND Pediatrics | DX: G47.33 Obstructive sleep apnea (adult) (pediatric) (principal) | CPT/HCPCS: 95810 ==

== ENCOUNTER → 2022-01-08 | Outpatient (CLI) | payer MEDICAID ==
--- NOTE | 2022-01-08 17:44 | Diagnostic Imaging Report ---
EXAM: Neck ultrasound. EXAM DATE: 01/08/2022. COMPARISON: None. HISTORY: Right neck mass, history of thyroidectomy. TECHNIQUE: Multiple sonographic images of the neck were obtained. FINDINGS: There is a 2.6 x 1.3 x 1.1 cm possible lymph node within the right neck. There is a 5.5 x 2.3 x 2.0 cm vascular solid lesion within the right thyroidectomy bed. There is a 2.7 x 1.0 x 1.7 cm vascular soft tissue lesion within the left thyroidectomy bed. IMPRESSION: 1. Vascular soft tissue lesions within the bilateral thyroidectomy bed. This could represent residual thyroid tissue, or this could represent the true thyroid gland if there is inaccurate history of thyroidectomy. 2. Mildly enlarged right neck lymph node. Dictated by: Dictated on workstation # [id number]
== END ==
LOC: RAD 12:30
PROVIDERS: ATTEND Nurse Practitioner
DX: R22.1 Localized swelling, mass and lump, neck (principal); M79.89 Other specified soft tissue disorders
CPT/HCPCS: 76536

== ENCOUNTER → 2022-01-29 | Outpatient (CLI) | payer MEDICAID ==
[~2022-01-29] MED LIST changes: +CATHETER FLUSH 10 ML SYR IV PRN; +IOHEXOL 350 MG/ML 100 ML (OMNIPAQUE 350) VIAL IV ONE; +NS 100 ML (IVPB) BAG IV ONE
[2022-01-29 09:55] LABS: CREATININE SERUM 1.03 MG/DL (0.60-1.30)
--- NOTE | 2022-01-29 14:53 | Diagnostic Imaging Report ---
CLINICAL INDICATION: Patient with right-sided nodule. BB placed in the area. Patient has history of thyroid disorder. EXAM: CT scan of the neck soft tissue performed with 75 mL of Omnipaque 350 IV contrast. Sagittal and coronal reformatted images are created. Auto Exposure Controls were utilized during the CT exam to meet ALARA standards for radiation dose reduction. COMPARISON: Ultrasound neck soft tissue dated 01/08/2022. FINDINGS: There is a 1.6 cm x 1.1 cm x 2.4 cm (AP x Trans x CC) circumscribed dense nodular area involving the anterior aspect of the right sternocleidomastoid muscle. This is seen beneath the right neck BB marker. This area has Hounsfield units of 125. The previously seen measured area of 2.6 cm x 1.2 cm x 1.1 cm in the right neck may represent this area and is represented a solid enhancing nodule. There is a small lymph node at the right level region just anterior to the level of this nodular area at the hyoid bone level. This is also adjacent to the BB marker. This is suspected to represent a lymph node. This lymph node measures 7 mm x 8 mm in greatest axial dimension. There is a 1.2 cm low-density nodule within the right thyroid lobe. The right thyroid gland is larger than the left thyroid gland. The remainder of this exam shows no other significant neck soft tissue abnormality. There are small bilateral neck lymph nodes. The salivary glands are unremarkable. There is dental streak artifact obscuring portions of the oral cavity. Otherwise, the oral cavity, tongue, sublingual and submandibular regions are unremarkable. The neck soft tissue structures show no significant abnormality. Visualized upper lung [place] are clear. Cervical spine shows no significant abnormality. Limited visualization of the intracranial structures shows no significant abnormality. Orbits and globes are unremarkable. Paranasal sinuses and mastoid air cells are clear. IMPRESSION: 1: There is a nonspecific, 2.4 cm enhancing nodular area within the anterior aspect of the right sternocleidomastoid muscle. This is seen beneath the BB marker. This may represent a nerve sheath tumor. An abnormal lymph node is suspected to be less likely given that it appears to be within the muscle. 2: There is a small lymph node seen in the right level region, which is also in the region of the BB marker. This lymph node is not enlarged. 3: There is a right thyroid lobe nodule. Dictated by: Dictated on workstation # [id number]
== END ==
LOC: RAD 09:45
PROVIDERS: ATTEND Surgery
DX: E04.1 Nontoxic single thyroid nodule (principal)
CPT/HCPCS: 36415; 70491; 82565; 84520

== ENCOUNTER 2022-08-28 19:10 | Emergency (ER) | payer MEDICAID ==
[~2022-08-28] VITALS: Ht 160 cm; Wt 102.0 kg
[~2022-08-28 19:10] MED LIST changes: -CATHETER FLUSH 10 ML SYR IV PRN; -IOHEXOL 350 MG/ML 100 ML (OMNIPAQUE 350) VIAL IV ONE; -NS 100 ML (IVPB) BAG IV ONE
[2022-08-28 19:19] VITALS: BP 136/76
[2022-08-28] MEDS ORDERED: TRM50T PO (19:52)
--- NOTE | 2022-08-28 19:53 | ED Lower Extremity ---
General Chief Complaint: Lower Extremity Stated Complaint: LEG PAIN Nursing Triage Note: PT AMBULATORY TO ROOM WITH AN OBSERVED LIMP. 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 STATES THE PAIN IS NOW A BURNING AND THROBBING IN HER LEFT CALF. Source: patient Exam Limitations: no limitations History of Present Illness Date Seen by Provider: August 28, 2022 Time Seen by Provider: 19:26 Initial Comments This delightful 62-year-old woman presents to the emergency room by private vehicle with complaints of pain in the posterior and lateral left calf. She has been feeling intermittent discomfort and a "knot" in the left posterior and lateral calf for a few weeks. Tonight she was walking across the yard which she "felt a snap in the back of my calf". She has had more intense pain since then. She has pain with dorsiflexion and plantarflexion as well as ambulation. The calf is tender to the touch, particularly in the mid posterior calf. There is no swelling, heat, erythema, or ecchymosis. Patient is religiously compliant with Eliquis for atrial fibrillation. She has no history of DVT. Allergies and Home Medications Allergies Coded Allergies: morphine (Unverified Allergy, Mild, 03/20/20) Patient Home Medication List Home Medication List Reviewed: Yes Acetaminophen (Tylenol Extra Strength) 500 Mg Tablet, 1,000 MG PO Q8H PRN for PAIN-MILD (1-4), (Reported) Entered as Reported by: SPENCER AHTHAWAY on 03/04/20 1012 Apixaban (Eliquis) 5 Mg Tablet, 5 MG PO BID, (Reported) Entered as Reported by: CHRISTINA FUENTES on 07/25/20 1116 Atorvastatin Calcium (Atorvastatin Calcium) 20 Mg Tablet, 20 MG PO DAILY, (Reported) Entered as Reported by: JOSE HERNANDEZ on 07/20/21915 Cetirizine HCl (Cetirizine HCl) 10 Mg Tablet, 10 MG PO DAILY, (Reported) Entered as Reported by: JOSE HERNANDEZ on 07/20/21915 Cholecalciferol (Vitamin D3) (D3-50) 1,250 Mcg Capsule, 1,250 MCG PO DAILY, (Reported) Entered as Reported by: JOSE HERNANDEZ on 07/20/21 0916 Fluticasone Propionate (Fluticasone Propionate) 15.8 Ml [place].susp, 15.8 ML NS DAILY, (Reported) Entered as Reported by: JOSE HERNANDEZ on 07/20/21 0916 Furosemide (Furosemide) 20 Mg Tablet, 20 MG PO DAILY, (Reported) Entered as Reported by: CHRISTINA FUENTES on 07/25/20 1116 Lisinopril (Lisinopril) 10 Mg Tablet, 20 MG PO DAILY, (Reported) Entered as Reported by: CHRISTINA FUENTES on 07/25/20 1116 Metoprolol Succinate (Toprol Xl) 50 Mg Tab.er.24h, 50 MG PO DAILY Prescribed by: MARLEEN MCQUEEN on 11/24/20 0715 [place]-3/Dha/Epa/Fish Oil (Fish Oil 1,000 mg Softgel) 1 Each Capsule, 3 EACH PO DAILY, (Reported) Entered as Reported by: PENNIE BOOTH on 11/23/20 1218 Ondansetron (Ondansetron Odt) 4 Mg Tab.rapdis, 4 MG SL Q4H PRN for NAUSEA/VOMITING Prescribed by: TURNER JUSTICE on 04/24/21 2336 Pantoprazole Sodium (Protonix) 40 Mg Tablet.dr, 40 MG PO DAILY Prescribed by: RICH HARRINGTON on 08/08/21 1047 Potassium Chloride (Potassium Chloride) 20 Meq Tablet.er, 20 MEQ PO DAILY, (Reported) Entered as Reported by: PENNIE BOOTH on 11/23/20 1218 Simethicone (Simethicone) 80 Mg Tab.chew, 80 MG PO PRN, (Reported) Entered as Reported by: JOSE HERNANDEZ on 07/20/21 0916 Tramadol HCl (Tramadol HCl) 50 Mg Tablet, 50 MG PO Q6H PRN for PAIN BREAKTROUGH Prescribed by: TURNER JUSTICE on 08/28/221954 Review of Systems Constitutional: no symptoms reported EENTM: no symptoms reported Respiratory: no symptoms reported Cardiovascular: no symptoms reported Gastrointestinal: no symptoms reported Musculoskeletal: see HPI Skin: no symptoms reported Psychiatric/Neurological: See HPI Past Hyzomea-Zlbnlj-Vyhjpj Hx Patient Social History Tobacco Use?: No Smoking Status: Former Smoker Use of E-Cig and/or Vaping dev: No Substance use?: No Alcohol Use?: No Immunizations Up To Date Tetanus Booster (TDap): Unknown PED Vaccines UTD: Yes Influenza Vaccine Up-to-Date: Yes; Up-to-Date First/Initial COVID19 Vaccinat: September 2020 Second COVID19 Vaccination [place]: October 2020 Third COVID19 Vaccination Date: 06/2021 Seasonal Allergies Seasonal Allergies: Yes Past Medical History Surgery/Hospitalization HX: T/A, THRYOID, MARVEL, , HERNIA, CHF, GRAVES DX, ARTHRITIS D/C today from hospital s/p pacemaker repair Surgeries: Yes (OPEN CHOLECYSTECTOMY; HIATAL HERNIA REPAIR) Abdominal, Adenoidectomy, Section, Gallbladder, Pacemaker, Thyroidectomy, Tonsillectomy Respiratory: Yes Asthma, Chronic Bronchitis Currently Using CPAP: No Currently Using BIPAP: No Cardiac: Yes (BRADYCARDIA, CHF) Atrial Fibrillation, Chronic Edema/Swelling, Hypertension, Palpitations Neurological: Yes Headaches /Migraines, 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 Genitourinary: No Gastrointestinal: Yes Gastroesophageal Reflux, Hiatal Hernia Musculoskeletal: Yes Arthritis Endocrine: Yes (hx thyoidectomy, history graves disease) Hypothyroidsim HEENT: No Cancer: No Psychosocial: Yes Depression Integumentary: No Blood Disorders: No Family Medical History Arthritis G8 SISTER son daughter Cardiovascular disease 19 FATHER Congenital heart disease Diabetes mellitus 19 MOTHER Headache disorder G8 SISTER son daughter Hypertension 19 MOTHER G8 SISTER Myocardial infarction 19 FATHER Neoplasm 19 FATHER 19 MOTHER Seizure disorder son Thyroid disease G8 SISTER Heart Disease Physical Exam Vital Signs Vital Signs - First Documented 08/28/22 19:19 Temp 36.7 Pulse 66 Resp 20 B/P (MAP) 136/76 (96) Pulse Ox 97 Capillary Refill : Height, Weight, BMI Height: '" Weight: lbs. oz. kg; 39.00 BMI Method: General Appearance: WD/WN, no apparent distress HEENT: normal ENT inspection Cardiovascular: regular rate, rhythm, no edema, no murmur Respiratory: lungs clear, normal breath sounds, no respiratory distress Legs: left leg normal inspection, left leg limited range of motion (Secondary to pain), left leg pain, left leg soft tissue tenderness (Mid posterior and l ateral calf), left leg other (No "knot", lump, or mass palpated on my exam) Knees: left knee non-tender, left knee normal inspection, left knee no evidence of injury Ankles: left ankle non-tender, left ankle normal inspection, left ankle no evidence of injury Feet: left foot non-tender, left foot normal inspection, left foot normal range of motion, left foot no evidence of injury, left foot other (Pedal pulses not palpable but capillary refill 3 seconds or less. Sensation intact in the toes) Neurologic/Psychiatric: no motor/sensory deficits, alert, normal mood/affect, oriented x 3 Skin: normal color, warm/dry Progress/Results/Core Measures Results/Orders My Orders Orders - TURNER CASTILLO MD Tramadol Tablet (Ultram Tablet) (08/28/22 20:00) Crutches (08/28/22 19:46) Medications Given in ED Current Medications Medications Dose Ordered Sig/Sigrid Route Start Time Stop Time Status Last Admin Dose Admin Tramadol HCl 50 mg ONCE ONCE PO 08/28/22 20:00 08/28/22 20:01 08/28/22 19:54 50 MG Vital Signs/I&O 08/28/22 19:19 Temp 36.7 Pulse 66 Resp 20 B/P (MAP) 136/76 (96) Pulse Ox 97 Blood Pressure Mean: 96 Progress Progress Note : Progress Note Suspicion for DVT is extremely low given yazdanism compliance with Eliquis. Additionally there is no swelling, erythema, or heat to the calf. There is suspicion for muscle or tendon injury based on described history and exam. Patient was advised to rest the calf muscle. Crutches were dispensed. Ultram was prescribed for breakthrough pain. A dose was given in the emergency room. Discharge instructions were reviewed with the patient. See discharge instructions for further discussion. Departure Impression Primary Impression: Pain of left calf Disposition: HOME, SELF-CARE Condition: Stable Departure-Patient Inst. Decision time for Depature: 19:48 Referrals: SPENCER CONKLIN DO (PCP/Family) Primary Care Physician Patient Instructions: Lower Extremity Muscle Strain Add. Discharge Instructions: The exact cause of your calf pain is uncertain but may be related to a muscle strain. Blood clot is very unlikely because you are religiously compliant with Eliquis. Rest your calf muscle as much as possible until pain resolves. You may use crutches or a walker to help you rest the calf muscle. As pain improves, gradually increase level of activity as pain allows. Follow-up with Dr. Conklin within the next week. Call tomorrow to schedule an appointment time. If symptoms persist or worsen, you may need further evaluation with ultrasound, referral to orthopedist, etc. based on your doctor's discretion. If symptoms worsen and your doctor is not available, return to the ER for further evaluation. For pain you may take Tylenol (acetaminophen) per package instructions. Add Ultram (tramadol) as prescribed for additional pain relief if needed. Ultram may cause drowsiness so use with caution. Avoid driving, operating machinery, or making important decisions while you are on Ultram. Ultram may also cause constipation, so you may wish to use a stool softener such as Colace while on Ultram. Icing in 20-minute intervals may also help with pain and swelling. All discharge instructions reviewed with patient and/or family. Voiced understanding. Scripts Tramadol HCl (Tramadol HCl) 50 Mg Tablet 50 MG PO Q6H PRN for PAIN ARABELLA, #15 TAB Prov: TURNER CASTILLO MD 08/28/22 Copy Copies To 1: SPENCER CONKLIN JOSHUA T MD August 28, 2022 19:53
== END 2022-08-28 20:10 | disposition home or self-care (01) ==
LOC: EDUNIT# 19:10 → ER 19:13
DX: M79.662 Pain in left lower leg (principal); I48.91 Unspecified atrial fibrillation; Z79.02 Long term (current) use of antithrombotics/antiplatelets; Z87.891 Personal history of nicotine dependence; Z88.5 Allergy status to narcotic agent
CPT/HCPCS: 99283

== ENCOUNTER 2022-10-15 20:22 | Emergency (ER) | payer MEDICAID ==
[~2022-10-15] VITALS: Ht 161.5 cm; Wt 113.0 kg
[~2022-10-15 20:22] MED LIST changes: +POTA-330 PO; -POTA-51 PO; +TRM50T PO
[2022-10-15] MEDS ORDERED: NS IV 1000 ML 1,000 ML IV SCH (21:00)
[2022-10-15 21:07] LABS: BASOPHILS % (AUTO) 0 % (0-10); EOSINOPHILS # (AUTO) 0.5 10^3/uL (0.0-0.3); EOSINOPHILS % (AUTO) 6 % (0-10); HEMATOCRIT 42 % (35-52); HEMOGLOBIN 13.6 g/dL (11.5-16.0); LYMPHOCYTES # (AUTO) 3.6 10^3/uL (1.0-4.0); LYMPHOCYTES % (AUTO) 45 % (12-44); MEAN CORPUSCULAR HEMOGLOBIN 30 pg (25-34); MEAN CORPUSCULAR HGB CONC 32 g/dL (32-36); MEAN CORPUSCULAR VOLUME 94 fL (80-99); MEAN PLATELET VOLUME 9.8 fL (9.0-12.2); MONOCYTES # (AUTO) 0.6 10^3/uL (0.0-1.0); MONOCYTES % (AUTO) 8 % (0-12); NEUTROPHILS # (AUTO) 3.2 10^3/uL (1.8-7.8); NEUTROPHILS % (AUTO) 40 % (42-75); PLATELET COUNT 285 10^3/uL (130-400)
--- NOTE | 2022-10-15 21:07 | ED Cardiac General ---
History of Present Illness General Chief Complaint: Cardiac/General Problems Stated Complaint: LOW BLOOD PRESSURE Nursing Triage Note: patient states has had low blood pressure 87/56, symptoms of dizziness and tired. Source: patient, family Exam Limitations: no limitations (DICK SNOWDEN) History of Present Illness Date Seen by Provider: Oct 15, 2022 Time Seen by Provider: 20:35 Initial Comments Our patient is a 62 yo F who presents to the emergency department with lightheadedness for the last 9 hours. She states that around 11 o'clock today, she was sitting in her chair and began to feel lightheaded. She then took her blood pressure which read as 87/56 which, along with new-onset weakness and lethargy, prompted her to seek care in the ER. She has a history of hypertension for which she takes metoprolol, HCTZ, and lisinopril and notes that she has a history of labile blood pressure. She notes previous occurrences in which a low blood pressure has caused her to feel lightheaded but notes that these episodes never lasted this long and that her blood pressure has never been this low. 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 She denies chest pain, shortness of breath, recent sick contacts, abdominal pain, fever, or recent illnesses. She indicates dry cough, swelling in her legs, and a brief episode of blurry vision in addition to the aforementioned symptoms. She has a history of Grave's disease and partial thyroidectomy but takes no medications for this as her thyroid hormone levels have remained stable. Timing/Duration: 12 hours Activities at Onset: rest Associated Systoms: No Chest Pain; Cough; No Diaphoresis, No Fever/Chills, No H eadaches, No Malaise, No Nausea/Vomiting, No Syncope; Weakness (DICK SNOWDEN) Allergies and Home Medications Allergies Coded Allergies: morphine (Unverified Allergy, Mild, Abdominal pain and nausea, 10/15/22) Patient Home Medication List Home Medication List Reviewed: Yes (TURNER CASTILLO MD) Acetaminophen (Tylenol Extra Strength) 500 Mg Tablet, 1,000 MG PO Q8H PRN for PAIN-MILD (1-4), (Reported) Entered as Reported by: SPENCER HATHAWAY on 03/04/20 1012 Apixaban (Eliquis) 5 Mg Tablet, 5 MG PO BID, (Reported) Entered as Reported by: CHRISTINA FUENTES on 07/25/20 1116 Atorvastatin Calcium (Atorvastatin Calcium) 20 Mg Tablet, 20 MG PO DAILY, (Reported) Entered as Reported by: JOSE HERNANDEZ on 07/20/21 09 Cephalexin (Cephalexin) 500 Mg Tablet, 500 MG PO BID Prescribed by: TURNER JUSTICE on 10/16/22 0011 Cetirizine HCl (Cetirizine HCl) 10 Mg Tablet, 10 MG PO DAILY, (Reported) Entered as Reported by: JOSE HERNANDEZ on 07/20/21 09 Cholecalciferol (Vitamin D3) (D3-50) 1,250 Mcg Capsule, 1,250 MCG PO DAILY, (Reported) Entered as Reported by: JOSE HERNANDEZ on 07/20/21 09 Fluticasone Propionate (Fluticasone Propionate) 15.8 Ml [place].susp, 15.8 ML NS DAILY, (Reported) Entered as Reported by: JOSE HERNANDEZ on 07/20/21 09 Furosemide (Furosemide) 20 Mg Tablet, 20 MG PO DAILY, (Reported) Entered as Reported by: CHRISTINA FUENTES on 07/25/20 111 Lisinopril (Lisinopril) 10 Mg Tablet, 20 MG PO DAILY, (Reported) Entered as Reported by: CHRISTINA FUENTES on 07/25/20 111 Metoprolol Succinate (Toprol Xl) 50 Mg Tab.er.24h, 50 MG PO DAILY Prescribed by: MARLEEN MCQUEEN on 11/24/20 0715 [place]-3/Dha/Epa/Fish Oil (Fish Oil 1,000 mg Softgel) 1 Each Capsule, 3 EACH PO DAILY, (Reported) Entered as Reported by: PENNIE BOOTH on 11/23/20 1218 Ondansetron (Ondansetron Odt) 4 Mg Tab.rapdis, 4 MG SL Q4H PRN for NAUSEA/VOMITING Prescribed by: TURNER JUSTICE on 04/24/21 2336 Pantoprazole Sodium (Protonix) 40 Mg Tablet.dr, 40 MG PO DAILY Prescribed by: RICH HARRINGTON on 08/08/21 1047 Potassium Chloride (Potassium Chloride) 20 Meq Tablet.er, 20 MEQ PO DAILY, (Reported) Entered as Reported by: PENNIE BOOTH on 11/23/20 1218 Simethicone (Simethicone) 80 Mg Tab.chew, 80 MG PO PRN, (Reported) Entered as Reported by: JOSE HERNANDEZ on 07/20/21 0916 Tramadol HCl (Tramadol HCl) 50 Mg Tablet, 50 MG PO Q6H PRN for PAIN BREAKTROUGH Prescribed by: TURNER JUSTICE on 08/28/221954 Review of Systems Review of Systems Constitutional: No chills, No diaphoresis; dizziness (lightheadedness); No fever; weakness EENTM: Blurred Vision (for a brief period); No Double Vision, No Throat Pain Respiratory: See HPI, Cough; Denies Shortness of Air; Wheezing Cardiovascular: Denies Chest Pain; Edema; Denies Irregular Heart Rate; Lightheadedness; Denies Palpitations, Denies Syncope Gastrointestinal: No Symptoms Reported; Denies Abdominal Pain, Denies Constipated, Denies Diarrhea, Denies Nausea, Denies Vomiting Genitourinary: No Symptoms Reported Musculoskeletal: joint pain Skin: no symptoms reported Psychiatric/Neurological: Denies Headache; Weakness Endocrine: Denies Excessive Sweating Hematologic/Lymphatic: No Symptoms Reported (DICK SNOWDEN) All Other Systems Reviewed Negative Unless Noted: Yes (DICK SNOWDEN) Past Nbqdthy-Xjrlvm-Tghtac Hx Patient Social History Tobacco Use?: No Substance use?: No Alcohol Use?: No (DICK SNOWDEN) Immunizations Up To Date Tetanus Booster (TDap): Unknown PED Vaccines UTD: Yes First/Initial COVID19 Vaccinat: September 2020 Second COVID19 Vaccination [place]: October 2020 Third COVID19 Vaccination Date: 06/2021 (DICK SNOWDEN) Seasonal Allergies Seasonal Allergies: Yes (DICK SNOWDEN) Past Medical History Surgery/Hospitalization HX: T/A, THRYOID, MARVEL, , HERNIA, CHF, GRAVES DX, ARTHRITIS Surgeries: Yes (OPEN CHOLECYSTECTOMY; HIATAL HERNIA REPAIR) Abdominal, Adenoidectomy, Section, Gallbladder, Pacemaker, Thyroidectomy, Tonsillectomy Respiratory: Yes Asthma, Chronic Bronchitis Currently Using CPAP: No Currently Using BIPAP: No Cardiac: Yes (BRADYCARDIA, CHF) Atrial Fibrillation, Chronic Edema/Swelling, Hypertension, Palpitations Neurological: Yes Headaches /Migraines, TIA BAR HOSTESS History: Menopausal Genitourinary: No Gastrointestinal: Yes Gastroesophageal Reflux, Hiatal Hernia Musculoskeletal: Yes Arthritis Endocrine: Yes (hx thyoidectomy, history graves disease) Hypothyroidsim HEENT: No Cancer: No Psychosocial: Yes Depression Integumentary: No Blood Disorders: No (DIKC SNOWDEN) Family Medical History Arthritis G8 SISTER son daughter Cardiovascular disease 19 FATHER Congenital heart disease Diabetes mellitus 19 MOTHER Headache disorder G8 SISTER son daughter Hypertension 19 MOTHER G8 SISTER Myocardial infarction 19 FATHER Neoplasm 19 FATHER 19 MOTHER Seizure disorder son Thyroid disease G8 SISTER Heart Disease (DICK SNOWDEN) Physical Exam Vital Signs Vital Signs - First Documented 10/15/22 20:28 Temp 35.5 Pulse 84 Resp 20 B/P (MAP) 132/75 (94) Pulse Ox 96 O2 Delivery Room Air (TURNER CASTILLO MD) Vital Signs Capillary Refill : Less Than 3 Seconds (DICK SNOWDEN) Height, Weight, BMI Height: '" Weight: lbs. oz. kg; 43.00 BMI Method: General Appearance: No Apparent Distress, WD/WN, Obese HEENT: PERRL/EOMI; No Scleral Icterus (L), No Scleral Icterus (R); Other (Dry mucous membranes) Neck: Non Tender, Supple; No JVD, No Lymphadenopathy (L), No Lymphadenopathy (R) Respiratory: Chest Non Tender, No Accessory Muscle Use, No Respiratory Distress, Wheezing (Worst in left upper lobe) Cardiovascular: Regular Rate, Rhythm, No Gallop, No JVD, No Murmur, Normal Peripheral Pulses Rectal: Deferred Extremity: Normal Capillary Refill, Normal Inspection, Non Tender, No Calf Tenderness, Pedal Edema (trace) Neurologic/Psychiatric: Alert, Oriented x3 Skin: Normal Color, Warm/Dry (DICK SNOWDEN) Progress/Results/Core Measures Results/Orders Lab Results Laboratory Tests Test 10/15/22 20:30 10/15/22 22:47 Range/Units White Blood Count 8.0 4.3-11.0 10^3/uL Red Blood Count 4.51 3.80-5.11 10^6/uL Hemoglobin 13.6 11.5-16.0 g/dL Hematocrit 42 35-52 % Mean Corpuscular Volume 94 80-99 fL Mean Corpuscular Hemoglobin 30 25-34 pg Mean Corpuscular Hemoglobin Concent 32 32-36 g/dL Red Cell Distribution Width 12.6 10.0-14.5 % Platelet Count 285 130-400 10^3/uL Mean Platelet Volume 9.8 9.0-12.2 fL Immature Granulocyte % (Auto) 0 % Neutrophils (%) (Auto) 40 L 42-75 % Lymphocytes (%) (Auto) 45 H 12-44 % Monocytes (%) (Auto) 8 0-12 % Eosinophils (%) (Auto) 6 0-10 % Basophils (%) (Auto) 0 0-10 % Neutrophils # (Auto) 3.2 1.8-7.8 10^3/uL Lymphocytes # (Auto) 3.6 1.0-4.0 10^3/uL Monocytes # (Auto) 0.6 0.0-1.0 10^3/uL Eosinophils # (Auto) 0.5 H 0.0-0.3 10^3/uL Basophils # (Auto) 0.0 0.0-0.1 10^3/uL Immature Granulocyte # (Auto) 0.0 0.0-0.1 10^3/uL Sodium Level 136 135-145 MMOL/L Potassium Level 3.6 3.6-5.0 MMOL/L Chloride Level 101 98-107 MMOL/L Carbon Dioxide Level 23 21-32 MMOL/L Anion Gap 12 5-14 MMOL/L Blood Urea Nitrogen 32 H 7-18 MG/DL Creatinine 2.34 H 0.60-1.30 MG/DL Estimat Glomerular Filtration Rate 23 BUN/Creatinine Ratio 14 Glucose Level 108 H 70-105 MG/DL Calcium Level 9.3 8.5-10.1 MG/DL Corrected Calcium 9.3 8.5-10.1 MG/DL Magnesium Level 2.0 1.6-2.4 MG/DL Total Bilirubin 0.6 0.1-1.0 MG/DL Aspartate Amino Transf (AST/SGOT) 15 5-34 U/L Alanine Aminotransferase (ALT/SGPT) 14 0-55 U/L Alkaline Phosphatase 88 40-136 U/L Total Protein 7.1 6.4-8.2 GM/DL Albumin 4.0 3.2-4.5 GM/DL Urine Color YELLOW Urine Clarity CLEAR Urine pH 5.5 5-9 Urine Specific [place] 1.025 H 1.016-1.022 Urine Protein NEGATIVE NEGATIVE Urine Glucose (UA) NEGATIVE NEGATIVE Urine Ketones NEGATIVE NEGATIVE Urine Nitrite NEGATIVE NEGATIVE Urine Bilirubin NEGATIVE NEGATIVE Urine Urobilinogen 0.2 < = 1.0 MG/DL Urine Leukocyte Esterase 1+ H NEGATIVE Urine RBC (Auto) TRACE-I H NEGATIVE Urine RBC 2-5 H /HPF Urine WBC 10-25 H /HPF Urine Squamous Epithelial Cells 10-25 H /HPF Urine Crystals NONE /LPF Urine Bacteria LARGE H /HPF Urine Casts PRESENT /LPF Urine Hyaline Casts 2-5 H /LPF Urine Mucus NEGATIVE /LPF Urine Culture Indicated YES (TURNER CASTILLO MD) My Orders Orders - TURNER CASTILLO MD Ed Iv/Invasive Line Start (10/15/22 21:00) Ekg Tracing (10/15/22 21:00) Monitor-Rhythm Ecg Trace Only (10/15/22 21:00) Orthostatic Vital Signs (Adult (10/15/22 21:00) Cbc With Automated Diff (10/15/22 21:00) Comprehensive Metabolic Panel (10/15/22 21:00) Magnesium (10/15/22 21:00) Ua Culture If Indicated (10/15/22 21:00) Ed Iv/Invasive Line Start (10/15/22 21:00) Ns Iv 1000 Ml (Sodium Chloride 0.9%) (10/15/22 21:00) Lactated Ringers (Lr 1000 Ml Iv Solution (10/15/22 21:30) Urine Culture (10/15/22 22:47) Cephalexin Capsule (Keflex Capsule) (10/16/22 00:15) (TURNER CASTILLO MD) Medications Given in ED Current Medications Medications Dose Ordered Sig/Sigrid Route Start Time Stop Time Status Last Admin Dose Admin Cephalexin HCl 500 mg ONCE ONCE PO 10/16/22 00:15 10/16/22 00:16 DC 10/16/22 00:19 500 MG Lactated Ringer's 1,000 ml @ 0 mls/hr Q0M ONCE IV 10/15/22 21:30 10/15/22 21:31 DC 10/15/22 22:30 0 MLS/HR (TURNER CASTILLO MD) Vital Signs/I&O 10/15/22 10/15/2210/16/23 20:28 21:30 00:20 Temp 35.5 Pulse 84 60 61 65 64 Resp 20 18 B/P (MAP) 132/75 (94) 108/58 (75) 93/76 115/66 (82) 112/68 (83) Pulse Ox 96 96 O2 Delivery Room Air Room Air (TURNER CASTILLO MD) Blood Pressure Mean: 94 Progress Progress Note : Progress Note Patient was interviewed and examined by me personally along with MS4. Labs were obtained and interpreted by me. CBC was grossly unremarkable. BMP was remarkable for a BUN of 32 and a creatinine of 2.48. This is a notable increase from her baseline which likely represents acute kidney injury and hypovolemia. She received 2 L of IV fluid in the ER with significant improvement in her symptoms and her blood pressure. Orthostatic blood pressures were obtained and noted to be positive for orthostasis. Urinalysis revealed significant pyuria. Treatment was started with Keflex. Patient was feeling much better and requesting discharge. Prescription for Keflex was sent to the pharmacy. We reviewed her medications and I recommended several changes. It seemed unnecessary for her to be on such high doses of Toprol-XL. I suggested that she change her dosing to 50 mg twice daily instead of the total daily dose of 150 mg. She was also taking both hydrochlorothiazide and Lasix. I advised stopping the hydrochlorothiazide as this seemed to be redundant therapy. I also advised that she skip her next dose of Lasix to allow her to catch up on her hydration. Lisinopril should also be held until her acute kidney injury improves and her hypotension has been corrected for a longer period of time. Prompt follow-up in the clinic was recommended. See discharge instructions for detailed discussion on how to manage her medications and follow-up. Patient was noted to have history of paroxysmal atrial fibrillation. Last documented ejection fraction was 67 on review of chart and recent stress test September 2021 suggesting that she would be able to tolerate the 2 L of IV fluid boluses. (TURNER CASTILLO MD) Initial ECG Impression Date: Oct 16, 2022 Initial ECG Impression Time: 21:19 Initial ECG Rate: 59 Initial ECG Impression: Normal Comment Paced rhythm with no ST elevation or depression. No abnormal intervals or axis deviation. (TURNER CASTILLO MD) Departure Impression Primary Impression: Acute kidney injury Additional Impressions: Hypovolemia Hypotension Qualified Codes: I95.89 - Other hypotension; E86.1 - Hypovolemia Disposition: 01 HOME, SELF-CARE Condition: Improved Departure-Patient Inst. Decision time for Depature: 00:10 (TURNER CASTILLO MD) Referrals: SPENCER CONKLIN DO (PCP/Family) Primary Care Physician Patient Instructions: Acute Kidney Injury (DC), Urinary Tract Infection, Adult ED Add. Discharge Instructions: Drink lots of water to stay well-hydrated. Please make the following medication changes until you are able to discuss with your primary care provider: 1. Skip your next dose of furosemide (Lasix). 2. Change metoprolol succinate (Toprol-XL) to 50 mg twice daily. 3. Stop hydrochlorothiazide. 4. Stop lisinopril. This may be resumed when your kidney function improves. If you are having escalating blood pressures that are higher than 150 on the top number or 90 on the bottom number, you may reintroduce lisinopril at 10 mg/day until you discuss with your doctor. Start your antibiotic for urinary tract infection in the morning. [facility] opens at 9:00. Follow-up with your primary care provider after 48 hours to review urine culture results to ensure you are taking an antibiotic most appropriate for the type of urinary tract infection that grows on culture. It is very important that you have close follow-up in the clinic to reevaluate your kidney function. Please call first thing on Saturday morning to arrange follow-up. Return to the emergency room if you have worsening symptoms despite following these instructions. All discharge instructions reviewed with patient and/or family. Voiced understanding. Scripts Cephalexin (Cephalexin) 500 Mg Tablet 500 MG PO BID, #14 TAB Prov: TURNER CASTILLO MD 10/16/22 Medical Student Attestation and Attending Note: I have personally interviewed and examined this patient along with Dick Snowden MS4. I have reviewed student documentation including history, physical, and assessments. I agree with the documentation except where otherwise noted. Exam: General: Alert, oriented, no acute distress, well developed HEENT: Normocephalic and atraumatic Heart: Regular rate and rhythm without murmur Lungs: Clear to auscultation bilaterally with normal effort Abdomen: Soft, nontender, nondistended, normal bowel sounds Neuropsych: Alert, oriented, no focal deficits Skin: Warm and dry without rashes (TURNER CASTILLO MD) Copy Copies To 1: SPENCER CONKLIN V DO Copies To 2: MARLEEN MCQUEEN MD, JOSEPH D Oct 15, 2022 21:07 TURNER CASTILLO MD Oct 16, 2022 00:14
[2022-10-15 21:18] LABS: BILIRUBIN,TOTAL 0.6 MG/DL (0.1-1.0); CALCIUM 9.3 MG/DL (8.5-10.1); CREATININE SERUM 2.34 MG/DL (0.60-1.30); POTASSIUM 3.6 MMOL/L (3.6-5.0); TOTAL PROTEIN 7.1 GM/DL (6.4-8.2)
[2022-10-15 21:30] VITALS: BP_SYST 108; BP_SYST 112; BP_SYST 115; BP_DIAS 58; BP_DIAS 66; BP_DIAS 68
[2022-10-15] MEDS ORDERED: LACTATED RINGERS 1,000 ML IV ONE (21:30)
[2022-10-15 22:59] LABS: BILIRUBIN,URINE NEGATIVE (NEGATIVE); CLARITY,URINE CLEAR; COLOR,URINE YELLOW; GLUCOSE, URINE (UA) NEGATIVE (NEGATIVE); KETONES,URINE NEGATIVE (NEGATIVE); LEUKOCYTE ESTERASE ,URINE 1+ (NEGATIVE); NITRITE,URINE NEGATIVE (NEGATIVE); PH,URINE 5.5 (5-9); PROTEIN,URINE NEGATIVE (NEGATIVE)
[2022-10-15 23:10] LABS: BACTERIA,URINE LARGE /HPF
[2022-10-16] MEDS ORDERED: CEPH500T PO (00:11)
[2022-10-16] MEDS ORDERED: CEPHALEXIN 250 MG (KEFLEX) CAP PO ONE (00:15)
[2022-10-16 00:20] VITALS: BP 93/76
== END 2022-10-16 00:25 | disposition home or self-care (01) ==
LOC: EDUNIT# 20:22 → ER 20:24
DX: N17.9 Acute kidney failure, unspecified (principal); E86.1 Hypovolemia; I95.9 Hypotension, unspecified; I11.0 Hypertensive heart disease with heart failure; I50.9 Heart failure, unspecified; Z79.899 Other long term (current) drug therapy
CPT/HCPCS: 36415; 80053; 81000; 83735; 85025; 87088; 93005; 93041